=== PATIENT | female | born 1990 | race Caucasian/White ===

== ENCOUNTER 2018-10-19 11:22 | Outpatient (REF) | payer BC, SELFPAY ==
[2018-10-19 18:54] LABS: ALT 25 U/L (12-78); AST 17 U/L (15-37); Alkaline Phosphatase 69 U/L (46-116); Anion Gap 12.6 mmol/L (3-11); BUN 10 mg/dL (7-18); Bilirubin, Total 0.6 mg/dL (0.2-1.0); CO2 23.4 mmol/L (21.0-32.0); CREATININE 0.75 mg/dL (0.55-1.02); Calcium 8.9 mg/dL (8.5-10.1); Chloride 103 mmol/L (98-107); Glucose 92 mg/dL (70-100); Potassium 4.1 mmol/L (3.5-5.1); Sodium 139 mmol/L (136-145); Total Protein 7.6 g/dL (6.4-8.2)
== END 2018-10-19 11:42 ==
LOC: NCHCN 11:22
PROVIDERS: PCP Nurse Practitioner Family; Visit Provider Nurse Practitioner Family
DX: Z00.00 Encounter for general adult medical examination without abnormal findings (principal); Z13.228 Encounter for screening for other metabolic disorders
CPT/HCPCS: 80053

== ENCOUNTER 2018-12-15 16:51 | Outpatient (REF) | payer BC, SELFPAY ==
[2018-12-15 19:19] LABS: Ferritin 51 ng/mL (8-388)
[2018-12-15 19:30] LABS: HCT 40.9 % (36.0-46.0); HGB 13.6 g/dL (12.0-15.5); Mean Corp. HGB Concentration 33.3 g/dL (32.0-36.0); Mean Corpuscular Hemoglobin 29.1 pg (27.0-33.0); Mean Corpuscular Volume 87.6 fL (80-95); Mean Platelet Volume 10.7 fL (8.0-11.0); Platelet Count 341 x1000/uL (130-400); RBC 4.67 m/cumm (4.00-5.20); RBC Distribution Width 12.9 % (11.7-14.6); White Blood Cell Count 10.08 k/cumm (4.4-10.8)
[2018-12-15 20:04] LABS: Iron 52 ug/dL (50-175); Total Iron Binding Capacity 301 ug/dL (250-450); Transferrin Sat 17 % (15-50)
== END 2018-12-15 17:11 ==
LOC: NCHCN 16:51
PROVIDERS: PCP Nurse Practitioner Family; Visit Provider Nurse Practitioner Family
DX: N93.9 Abnormal uterine and vaginal bleeding, unspecified (principal); R51 Headache; Z33.1 Pregnant state, incidental
CPT/HCPCS: 85027; 82728; 83540; 83550

== ENCOUNTER 2019-01-11 01:49 | Outpatient (CLI) | payer BC, SELFPAY ==
--- NOTE | 2019-01-11 12:28 | DI.US_ITS ---
EXAM: US PELVIS TRANSVAGINAL CLINICAL HISTORY: AUB following elective termination 6 weeks prior, N93.9 TECHNIQUE: Ultrasound performed using standard protocol. COMPARISON: No exams were available for comparison FINDINGS: The uterus measures 6.8 cm long by 4.4 cm AP x 4.7 cm transverse. The endometrial stripe is at the u pper limits of normal at 1.4 cm. No uterine mass is identified. The right ovary measures 2.4 x 1.5 x 1.5 cm. There are small follicular cysts present. There is nor mal blood flow to the right ovary. No evidence of torsion is present. The left ovary measures 2.8 x 1.9 x 2.2 cm. There are small follicular cysts present. There is norm al blood flow to the left ovary. No evidence of torsion is present. There is a small amount of free fluid in the pelvis. No hydronephrosis is present. IMPRESSION: Endometrial stripe measures 1.4 cm which is at the upper limits of normal. A follow-up pelvic ultras ound should be considered in 6-8 weeks for re-evaluation of the endometrial stripe.
== END 2019-01-11 02:09 ==
PROVIDERS: PCP Nurse Practitioner Family; Visit Provider Obstetrics & Gynecology
DX: N93.9 Abnormal uterine and vaginal bleeding, unspecified (principal); Z98.890 Other specified postprocedural states
CPT/HCPCS: 76830; 76856

== ENCOUNTER 2019-01-12 10:10 | Outpatient (CLI) | payer BC, SELFPAY ==
[2019-01-12 10:52] LABS: HCT 42.7 % (36.0-46.0); HGB 14.2 g/dL (12.0-15.5); Mean Corp. HGB Concentration 33.3 g/dL (32.0-36.0); Mean Corpuscular Hemoglobin 29.3 pg (27.0-33.0); Mean Platelet Volume 10.1 fL (8.0-11.0); Platelet Count 327 x1000/uL (130-400); RBC 4.85 m/cumm (4.00-5.20); RBC Distribution Width 12.9 % (11.7-14.6); White Blood Cell Count 7.58 k/cumm (4.4-10.8)
== END 2019-01-12 10:30 ==
PROVIDERS: PCP Nurse Practitioner Family; Visit Provider Obstetrics & Gynecology
DX: N93.9 Abnormal uterine and vaginal bleeding, unspecified (principal); Z30.430 Encounter for insertion of intrauterine contraceptive device; Z01.818 Encounter for other preprocedural examination; Z01.812 Encounter for preprocedural laboratory examination
CPT/HCPCS: 36415; 85027; 86850; 86900; 86901

== ENCOUNTER 2019-01-13 09:20 | Day surgery (SDC) | payer BC, SELFPAY ==
[2019-01-13 09:36] VITALS: BP 130/98; PULSE 88; RESP 16; TEMP 36.5; O2SAT 96
[2019-01-13] MEDS: Lactated Ringers 1,000 ML 125 ML IV (11:10)
[2019-01-13] MEDS: ceFAZolin 2 GM/50 ML BAG IVPB (12:34)
[2019-01-13] MEDS: Lidocaine 1% Multi-Dose 50 ML VIAL (12:35)
--- NOTE | 2019-01-13 12:55 | POCSPONT_PTH ---
PATIENT: Allyson Santos LOC: [facility] U#:[id number] AGE/SX: 28/F ROOM: RE01/13/[address]: Finesse Powell MD : 1990 BED: DIS: 01/13/2019 SPEC #: [id number] RECD: 01/13/19 18:12 STATUS: RAHEL REQ #: [id number] PAULY: 01/13/19 12:[address]: Finesse Powell DEPT: Surgical Specimen RECD BY: Lyly Leonardo ENTERED: 01/13/19 18:12 SP TYPE: POCSPONT MELONY DR: Devin Mims Tissues: 1 - ,SPONTANEOUS Procedures: GROSS AND MICRO LEVEL 4 Comments: [id number]
--- NOTE | 2019-01-13 12:55 | PAPFT_PTH ---
PATIENT: Allyson Santos LOC: [facility] U#:[id number] AGE/SX: 28/F ROOM: RE01/13/[address]: Finesse Powell MD : 1990 BED: DIS: 01/13/2019 SPEC #: [id number] RECD: 01/13/19 18:14 STATUS: RAHEL REQ #: [id number] PAULY: 01/13/19 12:[address]: Finesse Powell DEPT: [facility] Cytology RECD BY: Lyly Leonardo ENTERED: 01/13/19 18:15 SP TYPE: PAPFT OTHR DR: Devin Mims Tissues: 1 - CX/ENDOCX FOR PAP SMEARS Procedures: PAP THIN PREP/UVM Screening Comments: [id number]
[2019-01-13 13:35] VITALS: BP 124/58; PULSE 73; RESP 16; TEMP 36.3; O2SAT 99
--- NOTE | 2019-01-14 17:45 | W.PM.OP ---
Date of service: 01/13/19 Time of Service: 10:30 Operative Note Operative Note DATE OF PROCEDURE: 01/14/19 PRE-OP DIAGNOSIS: 1. Possible retained POC following EAB. 2. Contraceptive management. POST-OP DIAGNOSIS: same PROCEDURE: 1. Suction D&C 2. Mirena IUD insertion SURGEON: Finesse Powell ANESTHESIA: MAC ESTIMATED BLOOD LOSS: 20 PATHOLOGY: other (Possible retained products of conception) COMPLICATIONS: None Patient was transported to: PACU Patient's condition: stable Findings: 1. Moderate amount of tissue was extracted from the endometrial cavity Procedure Description: The patient was taken to the operating room and after an adequate level of sedation was achieved the patient was placed in lithotomy position. The patient was prepped and draped in the usual sterile manner. Prior to the vaginal prep a Pap smear was collected at the patient's request. A weighted speculum was placed in the vagina with good visualization of the cervix. A paracervical block with 10 cc of 1% plain lidocaine solution was instilled. The cervix was gently dilated with Villanueva dilators. A 7 [place]guillan curved suction curette was advanced to the cervix. The suction apparatus was activated and a moderate amount of tissue was returned. A sharp curettage was performed and no additional products of conception were retrieved. A second Paps with the suction curette was made also with no return of tissue. The Mirena IUD was inserted without difficulty and deployed. Strings were cut to the appropriate length. The procedure was concluded at this point. Almost instrumentation was removed. The patient was transferred to PACU stable condition.
== END 2019-01-13 14:36 | disposition home or self-care (01) ==
PROVIDERS: PCP Nurse Practitioner Family; Visit Provider Obstetrics & Gynecology
PROC: (CPT 59841; principal; 2019-01-13 11:00)
PROC: (CPT 59812; 2019-01-13 11:00)
DX: O07.4 Failed attempted termination of pregnancy without complication (principal); Z30.430 Encounter for insertion of intrauterine contraceptive device
CPT/HCPCS: 59812; 58300; 88142; 88305; J7298; J0690; J1100; J1885; J2405

== ENCOUNTER 2019-01-28 14:31 | Outpatient (CLI) | payer BC, SELFPAY ==
[2019-01-28 15:21] LABS: Abs Immature Grans 0.01 k/cumm (0.0-0.09); Absolute Basophil Count 0.04 k/cumm (0.0-0.2); Absolute Eosinophil Count 0.22 k/cumm (0.0-0.7); Absolute Lymphocyte Count 2.69 k/cumm (1.2-3.4); Absolute Monocyte Count 0.59 k/cumm (0.11-0.7); Absolute Neutrophil Count 5.22 k/cumm (1.2-6.7); Basophils % 0.5; Eosinophils % 2.5; HCT 42.6 % (36.0-46.0); Immature Grans % 0.1; Lymphocytes % 30.7; Mean Corp. HGB Concentration 32.9 g/dL (32.0-36.0); Mean Corpuscular Hemoglobin 28.7 pg (27.0-33.0); Mean Corpuscular Volume 87.5 fL (80-95); Mean Platelet Volume 10.1 fL (8.0-11.0); Monocytes % 6.7; Neutrophils % 59.5; Platelet Count 387 x1000/uL (130-400); RBC 4.87 m/cumm (4.00-5.20); RBC Distribution Width 12.6 % (11.7-14.6); White Blood Cell Count 8.77 k/cumm (4.4-10.8)
[2019-01-28 15:58] LABS: C-Reactive Protein 0.72 mg/dL (0.0-0.3)
[2019-01-28 16:11] LABS: ESR 16 mm/hr (0-20)
== END 2019-01-28 14:51 ==
PROVIDERS: PCP Nurse Practitioner Family; Visit Provider Obstetrics & Gynecology
DX: R10.9 Unspecified abdominal pain (principal); R10.2 Pelvic and perineal pain
CPT/HCPCS: 36415; 85652; 85025; 86140

== ENCOUNTER 2019-01-28 16:33 | Outpatient (REF) | payer BC, SELFPAY | END 2019-01-28 16:53 | LOC: LBN 16:33 | PROVIDERS: PCP Nurse Practitioner Family; Visit Provider Obstetrics & Gynecology | DX: G89.18 Other acute postprocedural pain (principal); R10.2 Pelvic and perineal pain | CPT/HCPCS: 87086 ==

== ENCOUNTER 2019-09-21 01:06 | Outpatient (CLI) | payer BC, SELFPAY ==
--- NOTE | 2019-09-21 13:30 | DI.US_ITS ---
EXAM: US BREAST RT LIMITED CLINICAL HISTORY: Right sided mastalgia. FHx of breast ca, N64.4, Z80.3 TECHNIQUE: Ultrasound right breast performed using standard protocol. COMPARISON: No exams were available for comparison FINDINGS: No solid or cystic masses, hypoechoic foci, areas of abnormal shadowing, or areas of skin thickening. IMPRESSION: No sonographically suspicious finding. BI-RADS Category 1 - Negative DATA REPOSITORY:
== END 2019-09-21 01:26 ==
PROVIDERS: PCP Nurse Practitioner Family; Visit Provider Obstetrics & Gynecology
DX: N64.4 Mastodynia (principal); Z80.3 Family history of malignant neoplasm of breast
CPT/HCPCS: 76642

== ENCOUNTER 2020-01-04 19:19 | Outpatient (REF) | payer BC, SELFPAY ==
[2020-01-04 13:02] LABS: TSH (W/Ref FT4) 1.49 uIU/mL (0.36-3.74)
== END 2020-01-04 19:39 ==
LOC: NCHCN 19:19
PROVIDERS: PCP Nurse Practitioner Family; Visit Provider Nurse Practitioner Family
DX: R53.83 Other fatigue (principal)
CPT/HCPCS: 84443

== ENCOUNTER 2020-09-26 12:39 | Outpatient (REF) | payer BC, SELFPAY ==
[2020-09-26 19:50] LABS: Abs Immature Grans 0.02 10^3/uL (0.0-0.06); Absolute Basophil Count 0.05 10^3/uL (0.0-0.2); Absolute Eosinophil Count 0.12 10^3/uL (0.0-0.7); Absolute Lymphocyte Count 2.37 10^3/uL (1.2-3.4); Absolute Monocyte Count 0.66 10^3/uL (0.1-0.8); Absolute Neutrophil Count 5.82 10^3/uL (1.2-6.7); Basophils % 0.6; Eosinophils % 1.3; HGB 14.3 g/dL (11.2-15.7); Immature Grans % 0.2; Lymphocytes % 26.2; MCH 29.7 pg (27.0-33.0); MCHC 33.3 % (32.0-36.0); MCV 89.4 fL (80-95); Monocytes % 7.3; Neutrophils % 64.4; Nucleated RBC 0 %; Platelet Count 301 10^3/uL (130-400); RBC 4.81 10^6/uL (3.93-5.22); RDW 12.7 % (11.7-14.6); RDW-SD 41.7 fL; WBC 9.04 10^3/uL (4.4-10.8)
[2020-09-26 20:12] LABS: Ferritin 51 ng/mL (8-252); TSH (W/Ref FT4) 2.24 uIU/mL (0.36-3.74)
[2020-09-27 20:35] LABS: Iron 133 ug/dL (50-170); Total Iron Binding Capacity 336 ug/dL (250-450); Transferrin Sat 40 % (15-50)
[2020-09-28 03:47] LABS: Vitamin D 25 Total 21.5 ng/mL (30-100)
== END 2020-09-26 12:40 | disposition home or self-care (01) ==
LOC: NCHCN 12:39
PROVIDERS: PCP Nurse Practitioner Family; Visit Provider Nurse Practitioner Family
DX: R53.83 Other fatigue (principal); L65.9 Nonscarring hair loss, unspecified
CPT/HCPCS: 82306; 82728; 83540; 83550; 84443; 85025

== ENCOUNTER 2021-06-18 18:38 | Outpatient (REF) | payer BC, SELFPAY ==
[2021-06-19 15:12] LABS: Chlamydia Result Negative (Negative); GC Result Negative (Negative)
== END 2021-06-18 18:39 | disposition home or self-care (01) ==
LOC: LBN 18:38
PROVIDERS: Nurse Practitioner Women's Health; PCP Nurse Practitioner Family; Visit Provider Internal Medicine Infectious Disease
DX: Z11.3 Encounter for screening for infections with a predominantly sexual mode of transmission (principal)
CPT/HCPCS: 87491; 87591

== ENCOUNTER 2021-07-18 01:32 | Outpatient (CLI) | payer BC, SELFPAY ==
[2021-07-18 07:41] LABS: HGB 14.4 g/dL (11.2-15.7); MCH 29.4 pg (27.0-33.0); MCHC 32.7 % (32.0-36.0); MCV 90 fL (80-95); MPV 9.9 fL (8.0-11.0); Platelet Count 317 10^3/uL (130-400); RDW 12.5 % (11.7-14.6); RDW-SD 41.1 fL; WBC 8.47 10^3/uL (4.4-10.8)
[2021-07-18 08:49] LABS: TSH (W/Ref FT4) 1.91 uIU/mL (0.36-3.74)
[2021-07-19 01:53] LABS: Vitamin D 25 Total 48.7 ng/mL (30-100)
== END 2021-07-18 01:33 | disposition home or self-care (01) ==
LOC: LBO 01:32
PROVIDERS: PCP Nurse Practitioner Family; Visit Provider Nurse Practitioner Women's Health
DX: L65.9 Nonscarring hair loss, unspecified (principal)
CPT/HCPCS: 36415; 82306; 85027; 84443

== ENCOUNTER 2022-10-29 13:09 | Outpatient (REF) | payer BC, SELFPAY ==
[2022-10-29 15:59] LABS: Abs Immature Grans 0.03 10^3/uL (0.0-0.06); Absolute Basophil Count 0.04 10^3/uL (0.0-0.2); Absolute Eosinophil Count 0.09 10^3/uL (0.0-0.7); Absolute Lymphocyte Count 2.33 10^3/uL (1.2-3.4); Absolute Monocyte Count 0.58 10^3/uL (0.1-0.8); Absolute Neutrophil Count 5.36 10^3/uL (1.2-6.7); Basophils % 0.5; Eosinophils % 1.1; HCT 43.4 % (36.0-46.0); HGB 14.6 g/dL (11.2-15.7); Immature Grans % 0.4; Lymphocytes % 27.6; MCH 29.7 pg (27.0-33.0); MCHC 33.6 % (32.0-36.0); MCV 88 fL (80-95); MPV 10.3 fL (8.0-11.0); Monocytes % 6.9; Neutrophils % 63.5; Platelet Count 364 10^3/uL (130-400); RBC 4.92 10^6/uL (3.93-5.22); RDW 12.8 % (11.7-14.6); RDW-SD 41.4 fL; WBC 8.43 10^3/uL (4.4-10.8)
[2022-10-29 16:52] LABS: FREE T4 1.08 ng/dL (0.76-1.46); TSH 2.15 uIU/mL (0.36-3.74)
[2022-10-29 23:12] LABS: Parathyroid Hormone,Intact 56 pg/mL (19-88)
== END 2022-10-29 13:10 | disposition home or self-care (01) ==
LOC: NCHCN 13:09
PROVIDERS: PCP Nurse Practitioner Family; Visit Provider Nurse Practitioner Family
DX: E04.9 Nontoxic goiter, unspecified (principal); M54.2 Cervicalgia
CPT/HCPCS: 82310; 83970; 84439; 84443; 85025

== ENCOUNTER 2022-11-12 17:12 | Outpatient (REF) | payer BC, SELFPAY ==
[2022-11-12 16:22] LABS: Abs Immature Grans 0.03 10^3/uL (0.0-0.06); Absolute Basophil Count 0.05 10^3/uL (0.0-0.2); Absolute Eosinophil Count 0.18 10^3/uL (0.0-0.7); Absolute Lymphocyte Count 2.77 10^3/uL (1.2-3.4); Absolute Monocyte Count 0.52 10^3/uL (0.1-0.8); Absolute Neutrophil Count 5.72 10^3/uL (1.2-6.7); Basophils % 0.5; Eosinophils % 1.9; HCT 42.3 % (36.0-46.0); HGB 14.4 g/dL (11.2-15.7); Immature Grans % 0.3; Lymphocytes % 29.9; MCH 29.4 pg (27.0-33.0); MCV 87 fL (80-95); MPV 9.9 fL (8.0-11.0); Monocytes % 5.6; Neutrophils % 61.8; Platelet Count 338 10^3/uL (130-400); RBC 4.89 10^6/uL (3.93-5.22); RDW 12.4 % (11.7-14.6); RDW-SD 39.3 fL; WBC 9.27 10^3/uL (4.4-10.8)
[2022-11-12 16:58] LABS: TSH 1.75 uIU/mL (0.36-3.74)
[2022-11-12 22:19] LABS: T3, Total 141 ng/dL (97-169)
== END 2022-11-12 17:13 | disposition home or self-care (01) ==
LOC: NCHCN 17:12
PROVIDERS: PCP Nurse Practitioner Family; Visit Provider Nurse Practitioner Family
DX: E04.9 Nontoxic goiter, unspecified (principal); R53.83 Other fatigue; L65.9 Nonscarring hair loss, unspecified; R59.1 Generalized enlarged lymph nodes; M54.2 Cervicalgia
CPT/HCPCS: 84439; 84443; 84480; 85025

== ENCOUNTER → 2023-02-17 02:45 | Outpatient (CLI) | payer BC, SELFPAY ==
--- NOTE | 2023-02-17 | DI.US_ITS ---
Exam(s) US BREAST LT COMPLETE US BREAST RT COMPLETE MG MAMMO DIAGNOSTIC BI EXAM: MG MAMMO DIAGNOSTIC BI AND BILATERAL COMPLETE BREAST ULTRASOUND CLINICAL HISTORY: CHANGE IN NIPPLE N64.59. TECHNIQUE: Both CC and MLO views of both breasts were performed using 3D tomosynthesis and I CAD. Complete bilateral breast ultrasound was performed including all 4 quadrants of both breasts as well as both axillary regions. COMPARISON: None. This is a baseline diagnostic mammogram on this 32-year-old patient who felt a re cent change in her right breast nipple. Denies feeling a mass nor nipple discharge. Her mother was diagnosed with breast cancer at approximately age 40. FINDINGS: DIAGNOSTIC BILATERAL MAMMOGRAM: There are no spiculated masses nor malignant-appearing microcalcification groups in either breast. S mall benign-appearing nodules in the upper-outer quadrant of the left breast have appearance of benig n intramammary lymph nodes. There is no significant architectural distortion or skin thickening-traction. BILATERAL COMPLETE BREAST ULTRASOUND: There is no evidence of solid or significant cystic lesions in all 4 quadrants of both breasts. No s ignificant findings in the retroareolar regions. Scanning of both axillary regions is negative for adenopathy. IMPRESSION: 1. No mammographic evidence of malignancy. 2. Negative bilateral complete breast ultrasound Appropriate follow-up is repeat imaging in a few months time if symptoms persist.. The patient was informed of the findings and follow-up recommendations prior to leaving the [facility] today. Category: Density: Breast density Category C or D implies that the patient has dense breast tissue. Dense breast tissue can make it harder to find cancer on a mammogram. Dense breast tissue is also associated with an incr eased risk of breast cancer. This information about the result of the mammogram report was provided to the patient to raise their awareness. Use this report when you speak with the patient about their risks for breast cancer, which includes their family history. At that time, you may recommend additional screening tests (Ultrasoun d or MRI) as these tests may add significant information. A negative radiographic report should not delay biopsy if a dominant or clinically suspicious mass is present. Up to ten percent of cancers are not identified on mammography. A negative report may reinforce clinical impression. Adenosis and dense breasts may obscure an underlying neoplasm. False positive reports average 6 to 10%. Patient will receive a letter notifying them of these results.
== END ==
PROVIDERS: PCP Nurse Practitioner Family; Visit Provider Nurse Practitioner Family
DX: Z12.31 Encounter for screening mammogram for malignant neoplasm of breast (principal); N64.59 Other signs and symptoms in breast
CPT/HCPCS: 76642; 77062; 77066; G0279

== ENCOUNTER 2023-03-20 12:56 | Outpatient (REF) | payer BC, SELFPAY ==
[2023-03-20 19:08] LABS: Abs Immature Grans 0.02 10^3/uL (0.0-0.06); Absolute Basophil Count 0.05 10^3/uL (0.0-0.2); Absolute Eosinophil Count 0.12 10^3/uL (0.0-0.7); Absolute Lymphocyte Count 2.32 10^3/uL (1.2-3.4); Absolute Neutrophil Count 5.36 10^3/uL (1.2-6.7); Basophils % 0.6; Eosinophils % 1.4; HCT 43.6 % (36.0-46.0); HGB 14.6 g/dL (11.2-15.7); Immature Grans % 0.2; Lymphocytes % 27.4; MCH 29.5 pg (27.0-33.0); MCHC 33.5 % (32.0-36.0); MCV 88 fL (80-95); Monocytes % 7.1; Neutrophils % 63.3; Platelet Count 345 10^3/uL (130-400); RBC 4.95 10^6/uL (3.93-5.22); RDW 12.7 % (11.7-14.6); RDW-SD 40.9 fL; WBC 8.47 10^3/uL (4.4-10.8)
[2023-03-20 19:21] LABS: FREE T4 1.04 ng/dL (0.76-1.46); TSH 1.36 uIU/mL (0.36-3.74)
[2023-03-21 19:11] LABS: Thyroglobulin Antibody 491 U/mL (<=60); Thyroperoxidase Antibody 37 U/mL (<=60)
[2023-03-22 20:28] LABS: HSV 1 DNA Result Positive (Negative); HSV 2 DNA Result Negative (Negative)
[2023-03-24 16:05] LABS: ANA Interpretation Negative (Negative)
== END 2023-03-20 12:57 | disposition home or self-care (01) ==
LOC: NCHCN 12:56
PROVIDERS: PCP Nurse Practitioner Family; Visit Provider Nurse Practitioner Family
DX: R53.83 Other fatigue (principal); R53.81 Other malaise; K13.0 Diseases of lips
CPT/HCPCS: 87529; 84439; 84443; 85025; 86038; 86376; 86800

== ENCOUNTER 2023-04-17 11:57 | Outpatient (REF) | payer BC, SELFPAY ==
--- NOTE | 2023-04-17 11:45 | PAPFT_PTH ---
PATIENT: Allyson Santos LOC: [facility] U#:[id number] AGE/SX: 32/F ROOM: RE04/17/[address]: Cathy Townsend DO : 1990 BED: DIS: 04/17/2023 SPEC #: [id number] RECD: 04/17/23 18:08 STATUS: RAHEL REQ #: [id number] PAULY: 04/17/23 11:[address]: Cathy Townsend DEPT: [facility] Cytology RECD BY: Lyly Leonardo ENTERED: 04/17/23 18:08 SP TYPE: PAPFT OTHR DR: NORBERT MAN Tissues: 1 - CX/ENDOCX FOR PAP SMEARS Procedures: PAP THIN PREP/UVM Screening HPV DNA PROBE Comments: [id number]
== END 2023-04-17 11:58 | disposition home or self-care (01) ==
LOC: LBN 11:57
PROVIDERS: PCP Nurse Practitioner Family; Visit Provider Obstetrics & Gynecology
DX: Z12.4 Encounter for screening for malignant neoplasm of cervix (principal)
CPT/HCPCS: 88142; 87624

== ENCOUNTER → 2023-05-20 01:01 | Outpatient (CLI) | payer BC, SELFPAY ==
--- NOTE | 2023-05-20 13:33 | DI.MAMMO_ITS ---
Exam(s) MAMMO DIAGNOSTIC BI EXAM: MAMMO DIAGNOSTIC BI CLINICAL HISTORY: 3 MONTH F/U, R92.8, BILAT FINDINGS. TECHNIQUE: Craniocaudal and mediolateral oblique Full Field Digital Mammography views of the bilater al breast with Computer Aided Diagnosis followed by Tomosynthesis. COMPARISON: Comparison is made with prior examinations. FINDINGS: Mammography/Tomosynthesis: Masses/Architectural Distortion: No new nodules. No areas of architectural distortion. Microcalcifictions: No suspicious pleomorphic-type are seen. Skin Thickening/Nipple Retraction: None. IMPRESSION: 1. No evidence of malignancy is noted. 2. Unless there is more urgent need, follow-up screening mammography is recommended, as per [employer] guidelines. 3. The findings were discussed with the patient on the date of the examination. BI-RADS Category 1 - Negative Breast Density - Category B - Scattered areas of fibroglandular density Breast density Category C or D implies that the patient has dense breast tissue. Dense breast tissue can make it harder to find cancer on a mammogram. Dense breast tissue is also associated with an incr eased risk of breast cancer. This information about the result of the mammogram report was provided to the patient to raise their awareness. Use this report when you speak with the patient about their risks for breast cancer, which includes their family history. At that time, you may recommend additional screening tests (Ultrasoun d or MRI) as these tests may add significant information. A negative radiographic report should not delay biopsy if a dominant or clinically suspicious mass is present. Up to ten percent of cancers are not identified on mammography. A negative report may reinforce clinical impression. Adenosis and dense breasts may obscure an underlying neoplasm. False positive reports average 6 to 10%. Patient will receive a letter notifying them of these results.
== END ==
PROVIDERS: PCP Nurse Practitioner Family; Visit Provider Nurse Practitioner Family
DX: Z12.31 Encounter for screening mammogram for malignant neoplasm of breast (principal); R92.8 Other abnormal and inconclusive findings on diagnostic imaging of breast
CPT/HCPCS: 77062; 77066; G0279

== ENCOUNTER → 2023-07-21 01:41 | Outpatient (CLI) | payer BC, SELFPAY ==
--- NOTE | 2023-07-21 | DI.MRI_ITS ---
Exam(s) MR BRAIN WO EXAM: MR BRAIN WO CLINICAL HISTORY: R27.8 Other lack of coordination, balancing issues,clumsiness,fatigue, TECHNIQUE: Multiplanar multisequence MRI of the brain was performed. FINDINGS: VENTRICLES AND EXTRA AXIAL SPACES: Normal in size and morphology for the patient's age. MIDLINE SHIFT: None. CEREBRAL PARENCHYMA: No focus of restricted diffusion to suggest acute infarct. No space-occupying le neil identified. Stable tiny high signal focus in the frontal lobe left periventricular white matter . HEMORRHAGE: None. BRAINSTEM/CEREBELLUM: Normal. VISUALIZED PARANASAL SINUSES/MASTOIDS:Clear. Vasculature: Normal flow void. PITUITARY GLAND: Unremarkable. ORBITS: Unremarkable. IMPRESSION: No acute abnormality. DATA REPOSITORY:
== END ==
PROVIDERS: PCP Nurse Practitioner Family; Visit Provider Nurse Practitioner Family
DX: R27.8 Other lack of coordination (principal)
CPT/HCPCS: 70551

== ENCOUNTER 2023-10-15 15:03 | Outpatient (REF) | payer BC, SELFPAY ==
--- OUTSIDE RECORDS SUMMARY | 2023-10-15 15:24 | XMS_ITS | Encounter Summary ---
Author Organization [facility] Address [facility] [place] [address] Care Team Providers Care Armhole Baster Hand Name Role Phone Triston Goldstein MD Primary Care Provider [phone] Reason for Visit * Reason Comments Medication Refill Encounter Details Date Type Department Care Team (Late st Contact Info) Description 05/05/2014 Refill Pediatric & Adolescent Medicine at [address] [phone] Rut Valdovinos APRN [facility] [place] [address] Social History Tobacco Use Types Packs/Day Years Used Date Smoking Tobacco: Never Alcohol Use Standard Drinks/Week Comments No 0 (1 standard drink = 0.6 oz pur e alcohol) Sex and Gender Information Value Date Recorded Sex Assigned at Not on file Gender Identity Not on file Sexual Orientation Not on file documented as of this encounter Miscellaneous Notes * Telephone Encounter - Katelyn Batista LPN - 05/05/2014 9:12 AM EST Last Rx 02-22-13 HPE 03-25-13, no future appointments pending. documented in this encounter Plan of Treatment Not on file documented as of this encounter Visit Diagnoses Not on filedocumented in this encounter Care Teams Armhole Baster Hand Relationship Specialty Start Date End Date Triston Goldstein MD [address] [place] [id number] PCP - General 03/22/13 06/23/16 documented as of this encounter
--- OUTSIDE RECORDS SUMMARY | 2023-10-15 15:24 | XMS_ITS | Encounter Summary ---
Author Organization [facility] Address [facility] [place] [address] Care Team Providers Care Deli Cook Name Role Phone Devin Mims DNP Primary Care Provider [phone] Reason for Visit * Reason Comments Genetic Evaluation * Consultation (Routine) - Closed Specialty Diagnoses / Procedures Referred By Leslye t Referred To Contact Hematology and Oncology Diagnoses Family history of malignant neoplasm of breast Mother diagnosed breast cancer in 40's Finesse Powell MD [address] [place] [phone] [facility] Hem Onc Office [address] [place] [phone] Referral ID Status Reason Start Date Expiration Date Visits Re quested Visits Authorized [id number] Closed 09/13/2019 09/12/2020 1 1 Encounter Details Date Type Department Care Team (Late st Contact Info) Description 12/31/2019 1:00 PM EDT Office Visit [place]ology [place] [phone] Shorty Lim V, [facility] Hematology/[place] [address] Family history of breast cancer Social History Tobacco Use Types Packs/Day Years Used Date Smoking Tobacco: Never Alcohol Use Standard Drinks/Week Comments No 0 (1 standard drink = 0.6 oz pur e alcohol) Sex and Gender Information Value Date Recorded Sex Assigned at Not on file Gender Identity Not on file Sexual Orientation Not on file documented as of this encounter Progress Notes * Shorty Lim LGC - 12/31/2019 1:00 PM EDT Allyson Santos was seen by ANALILIA Arriola in consultation at the request of Finesse zuñiga regarding possible heritable predisposition to cancer. I spent 25 minutes of this face to face encounter with the patient gathering medical and family history and discussing the likelihood of a genetic predisposition to cancer and the option of genetic testing. Reason for referral/Chief complaint Family history of breast cancer and personal history of recent breast pain. Medical history Cancer hx and treatment: No personal history of cancer reported. Allyson states that she recently had left breast pain and discharge. She had a breast ultrasound this summer which was normal and was recommended to have a mammogram in a year. She notes that she still has breast pain, as well as ongoing headache for weeks at a time which could be due to her stressful job. Current cancer screening: Mammogram planned for 2020 due to current breast pain. Receiving Operator exam annually.No prior colonoscopy. No prior dermatology exam, although notes interest in seeing a high school principal in the near future. Family History of Cancer Problem Relation Age of Onset ??? Breast Cancer Mother 46 Maternal ethnic background is . Paternal ethnic background is . There is no known Ashkenazi Evangelical Ancestry. Genetic risk assessment We discussed that Allyson's mother would be the best candidate for genetic testing as she was personally affected with breast cancer. We discussed that negative genetic testing in an individual who isnot personally affected with cancer is considered an uninformative negative, as it would still beunclear whether or not the family history of cancer is due to a detectable mutation in a cancer risk gene. Allyson thinks her mother may have had genetic testing and will get in touch with her mom to try and obtain a copy of her mother's test report. Per NCCN guidelines, Allyson does not meet criteria for BRCA1/2 testing as her mother was diagnosed at age 46. However, given the guidelines cut-off is age 45, Allyson could still consider testing if her mother has not had genetic testing and is not interested in doing so. We briefly discussed that genetic testing would be very unlikely to provide a direct explanation for her breast pain or headaches and that she should bring these concerns to her PCP for evaluation. Allyson was provided with my contact information and should reach out if she obtains information on her mother's genetic testing. Her mother can also reach out to me directly to provide verbal permission for me to look in her records for her test result and to disclose them to her daughter. Allyson should notify us of any changes to her personal and family history moving forward. Screening Recommendations Based on personal and/or family history, we recommend: Breast cancer screening ?? Be aware of any breast changes and share concerns with primary care provider ?? Annual clinical breast exams ?? Annual mammograms/Biennial or annual tomosynthesis (3D mammogram) starting up to 10 years prior to the youngest breast cancer in the family Ovarian cancer screening ?? We do not recommend any special screening studies in addition to an annual GEOCHEMICAL LABORATORY TECHNICIAN exam at this time. Colon cancer screening ?? Baseline colorectal cancer screening starting at age 50 Skin cancer screening ?? Periodic skin exams documented in this encounter Plan of Treatment Not on file documented as of this encounter Visit Diagnoses Diagnosis Family history of breast cancer Family history of malignant neoplasm of breast documented in this encounter Care Teams Deli Cook Relationship Specialty Start Date End Date Devin Mims DNP PCP - General Family Medicine 09/13/19 05/04/23 documented as of this encounter
--- OUTSIDE RECORDS SUMMARY | 2023-10-15 15:24 | XMS_ITS | Encounter Summary ---
Author Organization [facility] Address [address] [place] [address] Care Team Providers Care Visitor Services Associate Name Role Phone Unknown, Provider Primary Care Provider Encounter Details Date Type Department Care Team (Late st Contact Info) Description 04/18/2023 Lab Requisition [facility] Pathology & Laboratory Medicine - [facility] [address] [place] [address] Cathy Townsend [address] [place] [address] [place] [phone] Encounter for other general examination Social History Tobacco Use Types Packs/Day Years Used Date Smoking Tobacco: Never Assessed Interpersonal Safety Answer Date Record ed Physically Hurt Never 10/18/2019 Verbally Threaten Not on file 10/18/2019 Sex and Gender Information Value Date Recorded Sex Assigned at Not on file Gender Identity Not on file Sexual Orientation Not on file documented as of this encounter Plan of Treatment Not on file documented as of this encounter Procedures Procedure Name Priority Date/Time Associated Diagnosis Comments PAP TEST Today 04/17/2023 11:45 EST Encounter for other general examination HPV DNA DETECTION WITH GENOTYPING, PCR Today 04/17/2023 11:45 EST Encounter for other general examination documented in this encounter Results * HUMAN PAPILLOMAVIRUS (HPV) DETECTION-HIGH RISK TYPES (04/17/2023 11:45 EST) HPV other High Risk types, PCR Negative Negative 04/30/2023 14:39 EST [facility] Comment:No E6 or E7 mRNA is detected from HPV types 16,18,31,33,35,39,45,51,52,56,58,59,66, and 68 by measurement and sensing technician mediated amplification. Pap Test CERVIX UTERI STRUCTURE / Unknown 04/17/2023 11:45 EST 04/29/2023 15:19 EST Cathy Townsend MICROBIOLOGY - GENER AL ORDERABLES Performing Organization Address City/[facility]/ZIP Co de Phone Number [facility] [address] [place] [address] * PAP TEST (04/17/2023 11:45 EST) Specimens A. Cervix and/or Endocervix , ThinPrep Imaging System with Manual Evaluation 04/30/2023 14:39 [facility] Specimen Adequacy Satisfactory for Evaluation - transformation zone component present 04/30/2023 14:39 [facility] General Categorization Negative for intraepithelial lesion or malignancy 04/30/2023 14:39 [facility] Attestation . 04/30/2023 14:39 [facility] at 1439 Clinical History SEE BELOW 04/30/19 14:39 [facility] HPV The result for the Human Papillomavirus (HPV) Detection-High Risk Types is Negative. No E6 or E7 mRNA is detected from HPV types 16,18,31,33,35,39 ,45,51,52,56,58,5 9,66, and 68 by measurement and sensing technician mediated amplification.Jennifer ting was performed on specimen [id number] and was resulted on 04/30/2023 1439 EST by [facility], LAB INSTRUMENT RESULTS IN 04/30/2023 14:39 [facility] Performing Lab [facility] 04/30/2023 14:39 [facility] Scanned Images 04/30/2023 14:39 [facility] Pap Test CERVIX UTERI STRUCTURE / Unknown 04/17/2023 11:45 EST 04/18/2023 13:09 EST Cathy Townsend PATHOLOGY ORDERABLES [facility] [address] [place] [id number] documented in this encounter Visit Diagnoses Diagnosis Encounter for other general examination documented in this encounter Care Teams Visitor Services Associate Relationship Specialty Start Date End Date Unknown, Provider, PCP - General 01/13/19 documented as of this encounter
--- OUTSIDE RECORDS SUMMARY | 2023-10-15 15:24 | XMS_ITS | Encounter Summary ---
Author Organization [facility] [place] [address] Care Team Providers Care Interventional Sale Consultant Name Role Phone Carol Colon APRN Primary Care Provider Reason for Visit * Consultation (Routine) - Closed Specialty Diagnoses / Procedures Referred By Leslye t Referred To Contact Endocrinology Diagnoses Abnormal results of thyroid function studies Carol Colon APRN [address] [place] [address] [place] [address] [facility] Endocrinology [address] [place] [address] Referral ID Status Reason Start Date Expiration Date Visits Re quested Visits Authorized [id number] Closed 04/09/2023 04/08/2024 1 1 Encounter Details Date Type Department Care Team (Late st Contact Info) Description 05/05/2023 8:30 AM EST Office [place] [address] Festus Vines [facility] [place] [address] Yuli's disease Social History Tobacco Use Types Packs/Day Years Used Date Smoking Tobacco: Never Smokeless Tobacco: Never Tobacco Cessation:Counseling Given: Not Answered Alcohol Use Standard Drinks/Week Comments No 0 (1 standard drink = 0.6 oz pur e alcohol) Sex and Gender Information Value Date Recorded Sex Assigned at Not on file Gender Identity Not on file Sexual Orientation Not on file documented as of this encounter Last Filed Vital Signs Vital Sign Reading Time Taken Comments Blood Pressure 116/87 05/05/2023 9:19 AM EST Pulse 95 05/05/2023 8:30 AM EST Temperature 36.3 ??C (97.4 ??F) 05/05/2023 8:30 AM ES T Respiratory Rate 16 05/05/2023 8:30 AM EST Oxygen Saturation 98% 05/05/2023 8:30 AM EST Inhaled Oxygen Concentration - - Weight 90 kg (198 lb 6.4 oz) 05/05/2023 8:30 AM EST Height 162.6 cm (5' 4) 05/05/2023 8:30 AM EST Body Mass Index 34.06 05/05/2023 8:30 AM EST documented in this encounter Progress Notes * Festus Vines, DO - 05/05/2023 8:30 AM EST Endocrinology Outpatient Visit Date of Visit: 05/05/2023 Patient Name: Allyson Santos : 1990 PCP: Devin Mims DNP Reason for referral: Allyson Santos is seen in Endocrine clinic at the request of Dr. Devin Mims DNP for positive TgAb. Patient's previous record and lab results reviewed. HISTORY OF PRESENT ILLNESS: Ms. Santos is a very pleasant 32 y.o. female with a PMH significant for Anxiety, GERD, and Obesity who presents for evaluation of positive TgAb. Patient states that there was initially concern for thyroid disease in her teens, she had initial Thyroid US in the past as well as TFTs which were normal. Her TFTs were periodically checked over thepast 10 years and have always been normal. These were checked due to a history of fatigue, weight, gain, neck tenderness, and neck fullness. More recently, her TgAb and TPOAb were checked. TgAb was positive (TPO was negative). TSH and FT4 normal at that time. Due to this, patient was referred to our practice. She also admits to some intermittent sleep issues, some joint swelling / joint pain. She denies difficulty swallowing or breathing. She has no symptoms of hyperandrogenism now or in the past (currently on nexplanon), her menses prior to starting nexplanon were mostly regular. Review of Systems: 12 Point ROS negative except for what has been documented above PAST MEDICAL HISTORY Patient Active Problem List Diagnosis Code Healthcare maintenance Z00.00 Headache- likely migraine R51 Shaking spells [id number] Allergy No Known Allergies Current Medication Current Outpatient Medications on File Prior to Visit Medication Sig Dispense Refill PREVIFEM 0.25-35 mg-mcg Tablet TAKE 1 TABLET DAILY 84 tablet 4 UNKNOWN TO PATIENT Control (Patient doesn't know brand name). No current facility-administered medications on file prior to visit. Social History Social History Socioeconomic History Marital status: Single Spouse name: Not on file Number of children: Not on file Years of education: Not on file Highest education level: Not on file Occupational History Not on file Tobacco Use Smoking status: Never Smokeless tobacco: Not on file Substance and Sexual Activity Alcohol use: No Drug use: No Sexual activity: Never Other Topics Concern Poor oral hygiene No Bike safety No Vehicle safety No Social History Narrative Merged History Encounter Allyson has her own apartment in [facility] she shares with a friend... Stepmom working: works at [employer]... Father working: [employer]... School: [employer] majoring in Elementary Ed... Smoke exposure: None... Other: parents . Mom is Porsche and lives in [place]. Allyson sees her sometimes. Social Determinants of Health Financial Resource Strain: Not on file Food Insecurity: Not on file Transportation Needs: Not on file Physical Activity: Not on file Intimate Partner Violence: Not on file Housing Stability: Not on file Family History Family History Problem Relation Age of Onset Migraines Mother and MGM Breast Cancer Mother 46 High Blood Pressure Maternal Grandmother and MGF Diabetes Maternal Grandfather Type 2 Heart Disease Maternal Grandfather maternal side of family Sudden Neg Hx PHYSICAL EXAM: Patient Vitals for the past 24 hrs: Temp Pulse Resp BP SpO2 05/05/23 0830 36.3 ??C (97.4 ??F) 95 16 (!) 135/99 98 % 05/05/23 0919 -- -- -- 116/87 -- GENERAL: WDWN F in NAD EYES: EOMI, no scleral icterus NECK: supple, palpable thyromegaly EXTREMITIES: No clubbing, no edema, no cyanosis, normal nails NEURO: normal strength, no tremor, normal reflexes Psych: Normal mood and affect Recent labs and Imaging TSH: 1.36 FT4: 1.04 TgAb: 491 (reference < 60) TPO Ab: 37 (ref < 60) Thyroid US: Not available, but reportedly normal per patient. She did give me disc today which I have given to imaging center to upload in the chart. Assessment and Plan 32 YO F w/ h/o anxiety, GERD, and obesity presents for evaluation of + TgAb. #Yuli's Thyroiditis Significance of positive TgAb simply means patient is at higher risk for developing hypothyroidism in the future due to yuli's thyroiditis. Her current TSH and FT4 level are at goal and therefore there is no need for other intervention to be performed at this time. Monitoring TSH q6-12 months and replacing thyroid hormone when TSH rises with PCP would be warranted. Given she is 32 YO F of reproductive age, also important to realize that if she becomes goal TSH will be < 2.5, and levothyroxine may need to be started in this case to reduce risk of miscarriage / labor. Patient states she has no plans to get at this time. As for her fatigue, given that her thyro id function tests are normal this is not the cause of her current presentation. I did consider cushings syndrome but without clinical features of hyperandrogenism, with weight gain being gradual, andpatient without clinical stigmata of cushings on exam, I do not think it is likely, and I do not think she has an endocrine cause for her fatigue. Patient did complain of some joint swelling / stiffness so it is possible she has an underlying rheumatologic condition (even with negative JOSTIN). Her PCP can give her a referral if they deem it appropriate. Plan - check TSH q 6-12 months with PCP, can start on low-dose levothyroxine when TSH rises above normal - if patient becomes , will need to treat with levothyroxine to maintain TSH < 2.5 - I will review thyroid US but reportedly was normal Follow up PRN We have reviewed our plan as outlined above with the patient, and patient verbalized understanding.All questions were answered and most of the time was spent on counseling about thyroid conditions, medication dosage and adjustment, how to take the medication properly, including pros and cons of starting medication, precautions and potential adverse effects of medication, the diagnostic and therapeutic decisions, and coordination of care. Thank you for allowing me to participate in the care of this very pleasant patient. D/W Dr. Porsche Vines PGY5, Endocrinology Fellow Pager: [phone] * Marni Arevalo MD - 05/05/2023 8:30 AM EST Patient seen and case discussed with Dr. Vines. I agree with the assessment and plan as documented and was involved in all medical decision making, with the following addendum: No need for Levothyroxine therapy at this time. If she should plan to conceive or become , goal TSH is 2.5 or less. Marni Arevalo MD Pest Control Applicatordirector commercial sales Endocrinology Section [facility] documented in this encounter Miscellaneous Notes * Addendum Note - Marni Arevalo MD - 05/05/2023 8:30 AM ESTAddended by: MARNI AREVALO on: 05/05/2023 02:13 PM Modules accepted: Level of Service documented in this encounter Plan of Treatment Not on file documented as of this encounter Visit Diagnoses Diagnosis Yuli's disease Chronic lymphocytic thyroiditis documented in this encounter Care Teams Interventional Sale Consultant Relationship Specialty Start Date End Date Carol Colon, [place] [address] PCP - General Family Medicine 05/05/23 documented as of this encounter
--- OUTSIDE RECORDS SUMMARY | 2023-10-15 15:24 | XMS_ITS | Encounter Summary ---
Author Organization [facility] Address [address] [place] [address] Care Team Providers Care Enrichment Specialist Name Role Phone Unknown, Provider Primary Care Provider Encounter Details Date Type Department Care Team (Late st Contact Info) Description 01/13/2019 Results Only [facility] [phone] Heidy Smith MD [address] [place] [id number] Social History Tobacco Use Types Packs/Day Years Used Date Smoking Tobacco: Never Assessed Sex and Gender Information Value Date Recorded Sex Assigned at Not on file Gender Identity Not on file Sexual Orientation Not on file documented as of this encounter Plan of Treatment Not on file documented as of this encounter Procedures Procedure Name Priority Date/Time Associated Diagnosis Comments SURGICAL PATHOLOGY Routine 01/13/2019 22 :44 EDT PAP TEST- RESULT ONLY Routine 01/13/2019 0:00 EDT documented in this encounter Results * SURGICAL PATHOLOGY (01/13/2019 22:44 EDT) Pathology Report: SURGICAL PATHOLOGY REPORT Reports generated via electronic interface contain original data; however they are lacking the format of the original report. Caution should be taken when reading/interpret ing unformatted reports. Name: ? ROMAMICHELE HUFF ? Accession #: ? [id number] ? : ? 1990 (Age: 28) ??F ? Collect Date: ? 01/13/2019 ? Location: ? [facility] ? Receive Date: ? 01/13/2019 ? Provider: HEIDY SMITH MD Copy to: VINCE HARRELL DNP ? Final Pathologic Diagnosis: PRODUCTS OF CONCEPTION: - Mid secretory endometrium. - No chorionic villi or decidua are identified in this specimen. Document reviewed and electronically signed by: DAVID BOSTON MD Report ??Date: 01/15/2019 17:44 By the signature above, the attending physician certifies that he/she has personally conducted a gross and/or microscopic examination of the described specimens and rendered or confirmed the above diagnosis. Specimen(s) Received: Products of conception Clinical History: Retained POC Gross Description: ? Received in formalin labelled with proper patient identification (initials F, L) and products of conception are multiple fragments of pink-alexis soft tissue (2.5 x 1.8 x 0.9 cm in aggregate). Chorionic villi are not grossly identified. No parts are present. The specimen is entirely submitted in 1-2. ELINA Mills (ASCP) 01/14/2019 9:12 AM End of Report [facility] 01/13/2019 22:4 4 EDT 01/13/2019 22:44 EDT Heidy Smith MD PATHOLOGY ORDERABLES [facility] [address] [place] [address] * PAP TEST- RESULT ONLY (01/13/2019 0:00 EDT) Pathology Report: CYTOPATHOLOGY REPORT Reports generated via electronic interface contain original data; however they are lacking the format of the original report. Caution should be taken when reading/interpreti ng unformatted reports. Name: ? MICHELE SANTOS ? Accession #: ? [id number] : ? 1990 (Age: 28) ??F ?Collect Date: ? 01/13/2019 Location: ? [facility] ? Receive Date: ? 01/14/2019 Provider: ?HEIDY SMITH MD Copy to: ?VINCE Lezama JULIO CESAR DNP ? Specimen/Source: ?Pap Test, Cervix, ThinPrep Imaging System with manual evaluation Last Menstrual Period: ? Menstrual/Pregnanc y Status: ? Post ? SPECIMEN ADEQUACY ? Satisfactory for Evaluation - transformation zone component present GENERAL CATEGORIZATION ? Negative for Intraepithelial Lesion or Malignancy ? Document reviewed and electronically signed by: ? CLIFTON Mayes(ASCP) ? Report Date: ??01/15/2019 13:37 End of Report [facility] 01/13/2019 01/14/2019 Heidy Smith MD PATHOLOGY ORDERABLES [facility] [address] [place] [address] documented in this encounter Visit Diagnoses Not on filedocumented in this encounter Care Teams Enrichment Specialist Relationship Specialty Start Date End Date Unknown, Provider, PCP - General 01/13/19 documented as of this encounter
--- OUTSIDE RECORDS SUMMARY | 2023-10-15 15:24 | XMS_ITS | Encounter Summary ---
Author Organization [facility] Address [address] [place] [address] Care Team Providers Care Quality Technician Name Role Phone Unknown, Provider Primary Care Provider Encounter Details Date Type Department Care Team (Late st Contact Info) Description 11/12/2022 Lab Requisition [facility] Pathology & Laboratory Medicine - [facility] [address] [place] [address] Outr Resulting Lab, Provider Social History Tobacco Use Types Packs/Day Years [...] Procedure Name Priority Date/Time Associated Diagnosis Comments T3, TOTAL Routine 11/12/2022 11:10 EDT documented in this encounter Results * T3, TOTAL (11/12/2022 11:10 EDT) T3, Total 141 97 - 169 ng/dL 11/12/2022 22:14 EDT [facility] Blood VENOUS BLOOD / Unknown 11/12/2022 11:10 EDT 11/12/2022 21:28 EDT Provider Outr Resulting Lab CHEMISTRY & BLOOD GAS ORDERABLES [facility] [address] [place] [address] documented in this encounter Visit Diagnoses Not on filedocumented in this encounter Care Teams Quality Technician Relationship Specialty Start Date End Date Unknown, Provider, PCP - General 01/13/19 documented as of this encounter
--- OUTSIDE RECORDS SUMMARY | 2023-10-15 15:24 | XMS_ITS | Clinical Summary ---
Author Organization [facility] Address [address] [place] [address] Care Team Providers Care Hvac Commercial Salesperson Name Role Phone Unknown, Provider Primary Care Provider [phone] Social History Tobacco Use Types Packs/Day Years Used Date Smoking Tobacco: Never Assessed Interpersonal Safety Answer Date Record ed Physically Hurt Never 10/18/2019 Verbally Threaten Not on file 10/18/2019 Sex and Gender Information Value Date Recorded Sex Assigned at Not on file Gender Identity Not on file Sexual Orientation Not on file Plan of Treatment Health Maintenance Due Date Last Done Comments Hepatitis C Screen 1990 Hepatitis B Vaccine (1 of 3 - 19+ 3-dose series) 07/28 COVID-19 Vaccine (2022-24 season) 2022 Care Teams Hvac Commercial Salesperson Relationship Specialty Start Date End Date Unknown, Provider, PCP - General 01/13/19
--- OUTSIDE RECORDS SUMMARY | 2023-10-15 15:24 | XMS_ITS | Encounter Summary ---
Author Organization [facility] [place] [address] Care Team Providers Care Senior Enlisted Advisor Name Role Phone Devin Mims DNP Primary Care Provider [phone] Encounter Details Date Type Department Care Team (Late st Contact Info) Description 09/21/2019 Ancillary Procedure [place] [address] Devin Mims DNP [address] [place] [address] Social History Tobacco Use Types Packs/Day Years [...] Procedure Name Priority Date/Time Associated Diagnosis Comments FILM LIBRARY-STORAGE ONLY US BREAST Routine 09/21/2019 12:00 AM EDT documented in this encounter Results * Film Library Storage Only US Breast (09/21/2019 12:00 AM EDT) Narrative [facility] - 01/06/2020 12:09 PM EDT This exam is auto-finalizing. It's purpose is for storage only. Devin Mims DNP IMG FILM LIBRARY OR DERABLES [place], [place] documented in this encounter Visit Diagnoses Not on filedocumented in this encounter Care Teams Senior Enlisted Advisor Relationship Specialty Start Date End Date Devin Mims DNP PCP - General Family Medicine 09/13/19 05/04/23 documented as of this encounter
--- OUTSIDE RECORDS SUMMARY | 2023-10-15 15:24 | XMS_ITS | Encounter Summary ---
Author Organization [facility] Address [facility] [place] [address] Care Team Providers Care Computer Game Tester Name Role Phone Triston Goldstein MD Primary Care Provider [phone] Reason for Visit * Reason Comments Medication Refill Encounter Details Date Type Department Care Team ([facility] st Contact Info) Description 07/05/2015 Refill Pediatric & Adolescent Medicine at [address] [id number] Rut Valdovinos APRN [facility] [place] [address] Social History Tobacco Use Types Packs/Day Years [...] on filedocumented in this encounter Care Teams Computer Game Tester Relationship Specialty Start Date End Date Triston Goldstein MD [address] [place] [address] PCP - General 03/22/13 06/23/16 documented as of this encounter
--- OUTSIDE RECORDS SUMMARY | 2023-10-15 15:24 | XMS_ITS | Encounter Summary ---
Author Organization [facility] [place] [address] Care Team Providers Care Manager Of Tires Sales Name Role Phone Carol Colon APRN Primary Care Provider [phone] Reason for Referral * Consultation (Routine) - Denied Specialty Diagnoses / Procedures Referred By Contac t Referred To Contact Rheumatology Diagnoses Other fatigue CHRONIC FATIGUE, JOINT STIFFNESS. PT SEEN BY [facility] ENDOCRINOLOGY - POSITIVE THYROGLOBULIN ANTIBODY. ALL OTHER THYROID TESTING NORMAL. ENDOCRINOLOGY - POSITIVE THYROGLOBULIN Carol Rivera APRN [address] [place] [address] [facility] [address] [place] [phone] Referral ID Status Reason Start Date Expiration Date V isits Requested Visits Authorized [id number] Denied Consult, Test & Treat PCP Updated and/or Approved 05/26/2023 05/25/2024 6 0 Encounter Details Date Type Department Care Team (Late st Contact Info) Description 05/26/2023 Transcribe Orders eDH Incoming Referrals [phone] Carol Colon APRN [address] [place] [address] Other fatigue Social History Tobacco Use Types Packs/Day Years Used Date Smoking Tobacco: Never Smokeless Tobacco: Never Alcohol Use Standard Drinks/Week Comments No 0 (1 standard drink = 0.6 oz pur e alcohol) Sex and Gender Information Value Date Recorded Sex Assigned at Not on file Gender Identity Not on file Sexual Orientation Not on file documented as of this encounter Plan of Treatment Scheduled Referrals Name Type Priority Associated Diagnoses Order Schedule Referral to Rheumatology Outpatient Referral Routine Other fatigue Ordered: 05/26/2023 documented as of this encounter Visit Diagnoses Diagnosis Other fatigue documented in this encounter Care Teams Manager Of Tires Sales Relationship Specialty Start Date End Date Carol Colon, JEWEL STRIPPER [address] [place] [address] PCP - General Family Medicine 05/05/23 documented as of this encounter
--- OUTSIDE RECORDS SUMMARY | 2023-10-15 15:24 | XMS_ITS | Clinical Summary ---
Author Organization [facility] Address [facility] [place] [address] Care Team Providers Care Speech Pathologist Assistant Name Role Phone Isaiah Carol Diaz APRN Primary Care Provider [phone] Allergies No known active allergies Medications Medication Sig Dispensed Refills Start Date End Date Status PREVIFEM 0.25-35 mg-mcg Tablet TAKE 1 TABLET DAILY 84 tablet 4 05/05/2014 Active Additional Information Patient not taking.Reported on 05/05/2023 UNKNOWN TO PATIENT Control (Patient doesn't know brand name). Active escitalopram oxalate (Lexapro) 5 mg tablet Take 5 mg by mouth every morning. 04/01/2023 Active hydrOXYzine (Atarax) 25 mg tablet Take 25 mg by mouth as needed. Active lisdexamfetamine (Vyvanse) 20 mg capsule Take 1 capsule by mouth Daily at Noon. 04/02/2023 Active valACYclovir (Valtrex) 1 gram tablet Take 1 tablet by mouth 2 times daily. 04/16/2023 Active etonogestreL (Nexplanon) 68 mg Implant 68 mg by Subdermal route Continuous (Device). 03/16/2026 for removal Active Active Problems Problem Noted Date Diagnosed Date Headache- likely migraine 01/12/2013 Overview (01/14/2013): December,- Seen by neurologist and started on amitriptyline 10 mg daily. She has ordered a MRI and labs (cbc with diff, TSH, metabolic panel, lyme) . Keeping headache diary. Shaking spells 01/12/2013 Overview (01/14/2013): EEG ordered. Healthcare maintenance 08/30/2010 Overview (01/04/2013): Generally healthy- bright/sensible young woman Started OCP's to regulate menses ([id number]) and very happy. TSH normal at 0.69. Xray done after fall in September, revealed: Slight scoliosis with concavity to the left. 08-21-12 NEW IHQ COMPLETED [place] teeth impacted December,- Headaches behind right eye - referred to neurology Borderline elevated BP (01/04/13) - will check weekly for the next month. Resolved Problems Problem Noted Date Diagnosed Date Resolved Date Back injury 10/02/2011 05/22/2012 Overview (10/02/2011): September,- Fell 6 feet onto her back and sustained a contusion - returned to full work duty. Immunizations Name Administration Dates Next Due DT 02/02/1993,1992 DTaP 04/19/1999,04/28/1996,03/01/1994 Diphtheria,pertussis,tetanus 1992 HIB Vaccine PRP-T (ActHIB, H iberix, OmniHib) 11/30/1993,02/02/1993,1992,09/27 HPV, Quadrivalent (Gardasil) 09/04/2011,11/01/19 11,08/30/2010 Hepatitis B Unspecified Formulation 02/02/1993,0 1992,1992 Influenza (FluMist) Trivalen t Intranasal, LIVE 12/12/2008 MMR Vaccine LIVE 07/29/1997,11/30/1993 Meningococcal Conjugate 08/30/2010 Polio Vaccine (Orimune) 07/29/1997,02/01,1992,09/27 Tdap 10/05/2007 Family History Medical History Relation Comments Diabetes Maternal Grandfather Type 2 Heart Disease Maternal Grandfather maternal si de of family High Blood Pressure Maternal Grandmother and MGF Breast Cancer Mother Migraines Mother and MGM Sudden Neg Hx Relation Status Comments Brother 1 Alive Brother 2 Alive Father Alive Maternal Grandfather Alive Maternal Grandmother Alive Mother Alive Paternal Grandfather Alive Paternal Grandmother Alive Social History Tobacco Use Types Packs/Day Years Used Date Smoking Tobacco: Never Smokeless Tobacco: Never Tobacco Cessation:Counseling Given: Not Answered Alcohol Use Standard Drinks/Week Comments No 0 (1 standard drink = 0.6 oz pur e alcohol) Sex and Gender Information Value Date Recorded Sex Assigned at Not on file Gender Identity Not on file Sexual Orientation Not on file Last Filed Vital Signs Vital Sign Reading [...] Mass Index 34.06 05/05/2023 8:30 AM EST Plan of Treatment Health Maintenance Due Date Last Done Comments HIV screen 2010 Hepatitis C Screening 2010 Lipid Screening 2010 Tetanus vaccine 10/04/2017 10/05/2007, 05/1999, 04/28/1996, Additional history exists HPV test 2022 PAP Smear 2022 Covid-19 Vaccine ( - 2022-2 4 season) 2022 Influenza (Flu) vaccine (1 o f 1 - Influenza standard series) 11/16/2023 12/12/2008 Hepatitis B vaccine (0-59 yrs) Completed 1 1992, 1990, 1992 Tdap adult Completed 10/05/2007 HPV vaccine Completed 09/04/2011, 10/15, 08/30/2010 Care Teams Speech Pathologist Assistant Relationship Specialty Start Date End Date Carol Colon, WARP CHANGER [facility] [place] [address] PCP - General Family Medicine 05/05/23
--- OUTSIDE RECORDS SUMMARY | 2023-10-15 15:24 | XMS_ITS | Encounter Summary ---
Author Organization [facility] Address [address] [place] [address] Care Team Providers Care Manager Willow Name Role Phone Unknown, Provider Primary Care Provider Encounter Details Date Type Department Care Team (Late st Contact Info) Description 01/13/2019 10:00 EDT Hospital Encounter [address] [address] Unknown, Provider, Social History Tobacco Use Types Packs/Day Years [...] on filedocumented in this encounter Care Teams Manager Willow Relationship Specialty Start Date End Date Unknown, Provider, PCP - General 01/13/19 documented as of this encounter
--- OUTSIDE RECORDS SUMMARY | 2023-10-15 15:24 | XMS_ITS | Encounter Summary ---
Author Organization [facility] Address [facility] [place] [address] Care Team Providers Care Technical Sales Manager Name Role Phone Devin Mims DNP Primary Care Provider Encounter Details Date Type Department Care Team (Late st Contact Info) Description 12/29/2019 Notes Only [place] [address] Joseph Shankar MD [facility] DR HEMATOLOGY/ONCOLOGY [place] [id number] Social History Tobacco Use Types Packs/Day Years Used Date Smoking Tobacco: Never Alcohol Use Standard Drinks/Week Comments No 0 (1 standard drink = 0.6 oz pur e alcohol) Sex and Gender Information Value Date Recorded Sex Assigned at Not on file Gender Identity Not on file Sexual Orientation Not on file documented as of this encounter Progress Notes * Joseph Shankar MD - 12/29/2019 1:31 PM EDT I have reviewed the patient's record and given personal and/or family history of cancer she should be seen by genetic counselor. This is scheduled for later this week. documented in this encounter Plan of Treatment Not on file documented as of this encounter Visit Diagnoses Not on filedocumented in this encounter Care Teams Technical Sales Manager Relationship Specialty Start Date End Date Devin Mims DNP PCP - General Family Medicine 09/13/19 05/04/23 documented as of this encounter
--- OUTSIDE RECORDS SUMMARY | 2023-10-15 15:24 | XMS_ITS | Encounter Summary ---
Author Organization [facility] Address [facility] [place] [address] Care Team Providers Care Technical Internship Name Role Phone Triston Goldstein MD Primary Care Provider [phone] Reason for Visit * Reason Onset Date Comments Medication Refill 02/22/2013 Encounter Details Date Type Department Care Team (Late st Contact Info) Description 02/22/2013 Refill Pediatric & Adolescent Medicine at [address] [phone] Rut Valdovinos APRN [facility] [place] [address] Social History Tobacco Use Types Packs/Day Years Used Date Smoking Tobacco: Never Alcohol Use Standard Drinks/Week Comments No 0 (1 standard drink = 0.6 oz pur e alcohol) Sex and Gender Information Value Date Recorded Sex Assigned at Not on file Gender Identity Not on file Sexual Orientation Not on file documented as of this encounter Miscellaneous Notes * Telephone Encounter - Michelle Raphael RN - 02/22/2013 1:28 PM EST See below. 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 I pended a script to Care Sunil for you to sign. Has a reminder HPE in August. * Telephone Encounter - YadielKelseyPoppy H - 02/22/2013 11:46 AM EST Pt called she had a change to her insurance and needs to use the mail away Rx. Rx: control [facility] / pt ID [id number] PH: [phone] Pt will be out this week, so if we could call 1 month into [place]/[facility] [place] this would be helpful documented in this encounter Plan of Treatment Not on file documented as of this encounter Visit Diagnoses Not on filedocumented in this encounter Care Teams Technical Internship Relationship Specialty Start Date End Date Triston Goldstein MD [address] [place] [address] PCP - General 01/26/13 03/07/13 documented as of this encounter
--- OUTSIDE RECORDS SUMMARY | 2023-10-15 15:24 | XMS_ITS | Referral Summary ---
Author Organization Health system Address [address] [place] [address] Care Team Providers Care Hair Specialist Name Role Phone Unknown, Provider Primary Care Provider Social History Tobacco Use Types Packs/Day Years Used Date Smoking Tobacco: Never Assessed Interpersonal Safety Answer Date Record ed Physically Hurt Never 10/18/2019 Verbally Threaten Not on file 10/18/2019 Sex and Gender Information Value Date Recorded Sex Assigned at Not on file Gender Identity Not on file Sexual Orientation Not on file Plan of Treatment Not on file Care Teams Hair Specialist Relationship Specialty Start Date End Date Unknown, Provider, PCP - General 01/13/19
--- OUTSIDE RECORDS SUMMARY | 2023-10-15 15:24 | XMS_ITS | Encounter Summary ---
Author Organization [facility] Address [address] [place] [address] Care Team Providers Care Hr Analyst Name Role Phone Unknown, Provider Primary Care Provider Encounter Details Date Type Department Care Team (Late st Contact Info) Description 03/21/[address] [facility] Pathology & Laboratory Medicine - [facility] [address] [place] [address] Outr Resulting Lab, Provider Social History Tobacco [...] Procedure Name Priority Date/Time Associated Diagnosis Comments HOLD SST Today 03/20/2023 12:30 EST HOLD SST Today 03/20/2023 12:30 EST THYROPEROXIDASE ANTIBODY Today 03/20/2023 12:30 EST ANTI THYROGLOBULIN Today 03/20/2023 12 :30 EST ANTI NUCLEAR AB (JOSTIN), IFA Today 03/20/2023 12:30 EST documented in this encounter Results * HOLD SST (03/20/2023 12:30 EST) Hold Hold 03/21/2023 18:46 EST [facility] Blood VENOUS BLOOD / Unknown 03/20/2023 12:30 EST 03/21/2023 17:42 EST Provider Outr Resulting Lab LAB INFO SER VICE AND SUPPORT & PHONE RESULT Performing Organization Address City/[facility]/ZIP Co de Phone Number [facility] [address] [place] [phone] * HOLD SST (03/20/2023 12:30 EST) Hold Hold 03/21/2023 18:46 EST [facility] Blood VENOUS BLOOD / Unknown 03/20/2023 12:30 EST 03/21/2023 17:42 EST Provider Outr Resulting Lab LAB INFO SER VICE AND SUPPORT & PHONE RESULT Performing Organization Address [facility] Co de Phone Number [facility] [address] [place] [address] * THYROPEROXIDASE ANTIBODY (03/20/2023 12:30 EST) Thyroperoxidase Ab 37 <=60 U/mL 2023 19:06 EST [facility] Blood VENOUS BLOOD / Unknown 03/20/2023 12:30 EST 03/21/2023 17:42 EST Provider Outr Resulting Lab CHEMISTRY & BLOOD GAS ORDERABLES Performing Organization Address [facility]/ZIP Co de Phone Number [facility] [address] [place] [address] * (ABNORMAL) ANTI THYROGLOBULIN (03/20/2023 12:30 EST) Anti-Thyroglob ulin 491(H) <=60 U/mL 03/21/2023 19:07 EST [facility] Blood VENOUS BLOOD / Unknown 03/20/2023 12:30 EST 03/21/2023 17:42 EST Provider Outr Resulting Lab CHEMISTRY & BLOOD GAS ORDERABLES Performing Organization Address City/[facility]/ZIP Co de Phone Number [facility] [address] [place] [address] * ANTI NUCLEAR AB (JOSTIN), IFA (03/20/2023 12:30 EST) JOSTIN Interpretation Negative Negative 2023 16:00 EST [facility] Comment:No titer performed, JOSTIN Screen is negative. Blood VENOUS BLOOD / Unknown 03/20/2023 12:30 EST 03/21/2023 17:42 EST Narrative [facility] - 03/24/2023 16:00 EST Results were obtained with the INOVA NOVA Lite HEp-2 JOSTIN Kit by indirect immunofluorescence. Provider Outr Resulting Lab IMMUNOLOGY A ND SEROLOGY ORDERABLES [facility] [address] [place] [address] documented in this encounter Visit Diagnoses Not on filedocumented in this encounter Care Teams Hr Analyst Relationship Specialty Start Date End Date Unknown, Provider, PCP - General 01/13/19 documented as of this encounter
--- OUTSIDE RECORDS SUMMARY | 2023-10-15 15:24 | XMS_ITS | Encounter Summary ---
Author Organization [facility] Address [facility] [place] [address] Care Team Providers Care Supervisor Patching Name Role Phone Rut Valdovinos JESSEE Primary Care Provider [phone] Encounter Details Date Type Department Care Team (Late st Contact Info) Description 01/21/2013 2:30 PM EST Office Visit MR at [address] [phone] Headache; Episode of shaking Social History Tobacco Use Types Packs/Day Years Used Date Smoking Tobacco: Never Sex and Gender Information Value Date Recorded Sex Assigned at Not on file Gender Identity Not on file Sexual Orientation Not on file documented as of this encounter Miscellaneous Notes * Miscellaneous - Provider, Scanning - 01/23/2013 12:48 PM EST * Miscellaneous - Provider, Scanning - 01/23/2013 12:00 PM EST documented in this encounter Plan of Treatment Not on file documented as of this encounter Procedures Procedure Name Priority Date/Time Associated Diagnosis Comments MRI BRAIN WWO CONTRAST (GENERIC) Routine 01/21/2013 2:50 PM EST Headache Episode of shaking documented in this encounter Results * MRI brain with/WO contrast (01/21/2013 2:50 PM EST) Anatomical Region Laterality Modality Head Magnetic Resonan ce 01/21/2013 2:50 PM EST Narrative 01/21/2013 3:05 PM EST Examination MR Brain W WO CONTRAST Clinical History RODRIGUEZ; ? seizures Comparison None Technique Multiplanar images of the brain were acquired without contrast per routine departmental protocol. ??The patient was administered 14 mL of Magnevist contrast intravenously. Findings There is normal differentiation of rogel and white matter without mass, stroke, migrational anomaly, or intracranial hemorrhage. ??There is a single nonspecific punctate focus of increased T2/FLAIR signal within the periventricular white matter of the left frontal lobe (series 4, image 13). Visualized mesial temporal lobes are normal in signal and configuration as is the visualized mamillary bodies, ??anterior horn of the temporal lobe, and fornices. There are no areas of abnormal enhancement following the administration of contrast. There are normal flow voids within the vessels at the level of the [place] of [place]. Midline structures are normal. Ventricles, cisterns, and extra-axial CSF spaces are normal. Orbits, skull base, and sinuses are normal. Impression Normal MRI of the brain. Procedure Note Brenton Haney, DO - 01/21/2013 Examination MR Brain W WO CONTRAST Clinical History RODRIGUEZ; ? seizures Comparison None Technique Multiplanar images of the brain were acquired without contrast per routine departmental protocol. The patient was administered 14 mL of Magnevist contrast intravenously. Findings There is normal differentiation of rogel and white matter without mass,stroke, migrational anomaly, or intracranial hemorrhage. There is a singlenonspecific punctate focus of increased T2/FLAIR signal within the periventricularwhite matter of the left frontal lobe (series 4, image 13). Visualized mesial temporal lobes are normal in signal and configuration asis the visualized mamillary bodies, anterior horn of the temporal lobe, and fornices. There are no areas of abnormal enhancement following the administration of contrast. There are normal flow voids within the vessels at the level of the circleof [place]. Midline structures are normal. Ventricles, cisterns, and extra-axial CSF spaces are normal. Orbits, skull base, and sinuses are normal. Impression Normal MRI of the brain. Swathi Allan MD IMG MRI ORDERABLES documented in this encounter Visit Diagnoses Diagnosis Headache(784.0) Headache Episode of shaking Abnormal involuntary movements documented in this encounter Care Teams Supervisor Patching Relationship Specialty Start Date End Date Rut Valdovinos, HONING MACHINE OPERATOR TOOL PCP - General 01/21/13 01/24/13 documented as of this encounter
--- OUTSIDE RECORDS SUMMARY | 2023-10-15 15:24 | XMS_ITS | Encounter Summary ---
Author Organization [facility] Address [facility] [place] [address] Care Team Providers Care Street Light Servicer Helper Name Role Phone Devin Mims DNP Primary Care Provider [phone] Reason for Visit * Consultation (Routine) - Specialty Diagnoses / Procedures Referred By Leslye t Referred To Contact Hematology and Oncology Diagnoses Nipple discharge Devin Mims DNP [address] [place] [address] [facility] [address] [place] [address] Referral ID Status Reason Start Date Expiration Date V isits Requested Visits Authorized [id number] Consult, Test & Treat Connection Center PCP Updated and/or Approved 01/04/2020 07/04/2020 6 6 Encounter Details Date Type Department Care Team (Late st Contact Info) Description 01/18/2020 2:00 PM EST Office [place] [phone] Saira June [address]N [facility] [place] [address] Breast pain Social History Tobacco Use Types Packs/Day Years Used Date Smoking Tobacco: Never Alcohol Use Standard Drinks/Week Comments No 0 (1 standard drink = 0.6 oz pur e alcohol) Sex and Gender Information Value Date Recorded Sex Assigned at Not on file Gender Identity Not on file Sexual Orientation Not on file documented as of this encounter Progress Notes * Saira June, MERCERIZING RANGE CONTROLLER - 01/18/2020 2:00 PM EST Ms. Santos is a 29 y.o. year-old patient who I am seeing at the request of Devin Mims to evaluate right breast pain with nipple discharge. Ms. Santos noticed her right breast seems to have bigger pores/bumps around her areola. She has right breast pain radiating to her axilla. She has also noticed stained bras but has not seen actual discharge. She denies any breast masses, breast trauma, or prior breast surgery. Imaging performed (right focused ultrasound) at [facility] on 09/21/19 was interpreted as Category 1. She does do occasional self-breast exams. Weight stable. She has no new or concerning complaints of fatigue, cardiovascular or respiratory symptoms. She does struggle with headaches for the last few months but she attributes this to her work. All other ROS are negative. Reproductive History: Menarche began at 13. She had a nexplanon placed in February of 2019. She likes this modality of control as it has stopped her usual heavy menses. Family History: Positive for breast cancer in her mother diagnosed at age 46, unclear if her mom had genetic testing. Allyson has met with a genetic counselor and it was decided that she would not test. 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 She does not smoke. Social etoh. Past Medical History: Noncontributory. Past Surgical History: Noncontributory Physical Exam: She looks well and is in no apparent distress. Her skin is anicteric with good turgor. Sclera are anicteric. Her head and neck are without masses or adenopathy. Her arms have good ROM without any evidence of lymphedema. Breasts are large. Her nipples are everted. NAC is normal in appearance. There is no axillary adenopathy on the right or the left. There are no skin changes or dimpling noted in either breast. I am unable to express discharge from either nipple. The left breast is notable for generally heterogenous breast tissue, without discrete masses- thereis firm tissue in the upper outer quadrant. Her right breast exam is similar in character to her left breast, without discrete masses and firm tissue in upper outer quadrant. Assessment: Clinical breast exam notable for fibrocystic breast tissue without discrete masses. Normal ultrasound. Plan: We discussed the various causes of breast pain to include hormonal influences, large breast size and need for better support. She understands that for most women breast pain is self limiting and will improve over time. I have recommended regular use of a supportive bra and consideration of a course of ibuprofen and or evening primrose oil. I have suggested she monitor her symptoms for the next several weeks and contact me if her pain worsens or if it does not improve. Saira June APRN documented in this encounter Plan of Treatment Not on file documented as of this encounter Visit Diagnoses Diagnosis Breast pain Mastodynia documented in this encounter Care Teams Street Light Servicer Helper Relationship Specialty Start Date End Date Devin Mims DNP PCP - General Family Medicine 09/13/19 05/04/23 documented as of this encounter
--- OUTSIDE RECORDS SUMMARY | 2023-10-15 15:24 | XMS_ITS | Encounter Summary ---
Author Organization [facility] Address [address] [facility] [place] [address] Care Team Providers Care Assistant Pressman Name Role Phone Devin Mims JULIO Primary Care Provider [phone] Encounter Details Date Type Department Care Team (Late st Contact Info) Description 11/08/2022 Ancillary Procedure [place] [phone] Carol Colon APRN [address] [place] [address] [place] [address] Social History Tobacco Use Types Packs/Day Years [...] Name Priority Date/Time Associated Diagnosis Comments FILM LIBRARY STORAGE ONLY ULTRASOUND STUDY Routine 11/08/2022 12:00 AM EDT documented in this encounter Results * Film Library- Storage Only Ultrasound Study (11/08/2022 12:00 AM EDT) Narrative [facility] - 05/05/2023 10:01 AM EST This exam is auto-finalizing. It's purpose is for storage only. Carol Colon APRN [facility] FILM LIBRARY ORD ERABLES [place], [place] documented in this encounter Visit Diagnoses Not on filedocumented in this encounter Care Teams Assistant Pressman Relationship Specialty Start Date End Date Devin Mims DNP PCP - General Family Medicine 09/13/19 05/04/23 documented as of this encounter
--- OUTSIDE RECORDS SUMMARY | 2023-10-15 15:24 | XMS_ITS | Encounter Summary ---
Author Organization [place] [address] Care Team Providers Care Child Care Center Assistant Director Name Role Phone Carol Colon APRN Primary Care Provider [phone] Encounter Details Date Type Department Care Team (Latest Contact Info) Description 05/05/2023 Travel Social History Tobacco Use Types Packs/Day Years [...] on filedocumented in this encounter Care Teams Child Care Center Assistant Director Relationship Specialty Start Date End Date Carol [place] [address] PCP - General Family Medicine 05/05/23 documented as of this encounter
--- OUTSIDE RECORDS SUMMARY | 2023-10-15 15:24 | XMS_ITS | Encounter Summary ---
Author Organization [facility] Address [address] [place] [address] Care Team Providers Care Product Inspection Supervisor Name Role Phone Unknown, Provider Primary Care Provider Encounter Details Date Type Department Care Team (Late st Contact Info) Description 03/21/2023 Lab Requisition [facility] Pathology & Laboratory Medicine - [facility] [address] [place] [address] Outr Resulting Lab, Provider Social History Tobacco [...] Procedure Name Priority Date/Time Associated Diagnosis Comments HSV (HERPES SIMPLEX VIRUS) MOLECULAR DETECTION, PCR Routine 03/20/2023 12:01 EST documented in this encounter Results * (ABNORMAL) HSV (HERPES SIMPLEX VIRUS) MOLECULAR DETECTION, PCR (03/20/2023 12:01 EST) Herpes Simplex Virus Molecular Detection 1, PCR Positive(A) Negative 03/22/2023 20:24 EST [facility] Herpes Simplex Virus Molecular Detection 2, PCR Negative Negative 03/22/2023 20:24 EST [facility] Swab LIP STRUCTURE / Unknown 03/20/2023 12:01 EST 03/21/2023 19:24 EST Provider Outr Resulting Lab MICROBIOLOGY - GENERAL ORDERABLES [facility] [address] [place] [address] documented in this encounter Visit Diagnoses Not on filedocumented in this encounter Care Teams Product Inspection Supervisor Relationship Specialty Start Date End Date Unknown, Provider, PCP - General 01/13/19 documented as of this encounter
--- OUTSIDE RECORDS SUMMARY | 2023-10-15 15:24 | XMS_ITS | Encounter Summary ---
Author Organization [facility] Address [address] [place] [address] Care Team Providers Care Calculating Machine Operator Name Role Phone Unknown, Provider Primary Care Provider Encounter Details Date Type Department Care Team (Late st Contact Info) Description 10/29/2022 Lab Requisition [facility] Pathology & Laboratory Medicine - [facility] [address] [place] [address] Outr Resulting Lab, Provider Social History Tobacco [...] Procedure Name Priority Date/Time Associated Diagnosis Comments PTH INTACT Routine 10/29/2022 12:48 EDT documented in this encounter Results * PTH INTACT (10/29/2022 12:48 EDT) Intact PTH 56 19 - 88 pg/mL 10/29/2022 23:06 EDT [facility] Blood VENOUS BLOOD / Unknown 10/29/2022 12:48 EDT 10/29/2022 21:32 EDT Provider Outr Resulting Lab CHEMISTRY & BLOOD GAS ORDERABLES [facility] [address] [place] [address] documented in this encounter Visit Diagnoses Not on filedocumented in this encounter Care Teams Calculating Machine Operator Relationship Specialty Start Date End Date Unknown, Provider, PCP - General 01/13/19 documented as of this encounter
--- OUTSIDE RECORDS SUMMARY | 2023-10-15 15:24 | XMS_ITS | Encounter Summary ---
Author Organization [facility] Address [facility] [place] [address] Care Team Providers Care Formulation Technician Name Role Phone ValdovinosRut barbour Norman HOOKS Primary Care Provider [phone] Encounter Details Date Type Department Care Team ([facility] st Contact Info) Description 03/16/2013 Telephone Neurology at [address] [phone] Swathi Allan MD [address] [facility] [address] Social History Tobacco Use Types Packs/Day Years Used Date Smoking Tobacco: Never Alcohol Use Standard Drinks/Week Comments No 0 (1 standard drink = 0.6 oz pur e alcohol) Sex and Gender Information Value Date Recorded Sex Assigned at Not on file Gender Identity Not on file Sexual Orientation Not on file documented as of this encounter Miscellaneous Notes * Telephone Encounter - Margarita Duckworth - 03/18/2013 11:31 AM EST Spoke to mom , she will speak to patient to come in sooner or another day per weather * Telephone Encounter - Alek Wong - 03/16/2013 12:54 PM EST A call was made to this patient as the consult she is scheduled for on 03/18/13 overlaps into the next follow up appointment. A message was left for the patient to call back to see if we can reschedulethe patient for a morning appointment on 03/18/13. Call Center- Please reschedule the patients consult for a spot in the morning on 03/18/13. Please update the task once complete. * Telephone Encounter - Alek Wong - 03/16/2013 9:23 AM EST A call was made to this patient as the consult she is scheduled for on 03/18/13 overlaps into the next follow up appointment. A message was left for the patient to call back to see if we can reschedulethe patient for a morning appointment on 03/18/13. Call Center- Please reschedule the patients consult for a spot in the morning on 03/18/13. Please update the task once complete. documented in this encounter Plan of Treatment Not on file documented as of this encounter Visit Diagnoses Not on filedocumented in this encounter Care Teams Formulation Technician Relationship Specialty Start Date End Date Rut Valdovinos, JESSEE PCP - General 03/18/13 03/21/13 documented as of this encounter
--- OUTSIDE RECORDS SUMMARY | 2023-10-15 15:24 | XMS_ITS | Continuity of Care Document ---
Author Organization [facility] Address [address] [place] [phone]- Care Team Providers Care Bellows Tester Name Role Phone NORBERT MAN APRN Primary Care Physician [phone] Encounter [facility] NBR [id number] Date(s): 09/28/23 - 09/28/23 [facility] [address] [place] [address]- Encounter Diagnosis Rash(Discharge Diagnosis) - 09/28/23 Discharge Disposition: Home or Self Care Attending Physician: SHERRI Head Allergies, Adverse Reactions, Alerts No Known Medication Allergies Assessment and Plan Extracted from: Title:Andrea Office Visit Note Author:SHERRI Head Date:09/28/23 1.??Rash??R21 Patient is a well-appearing 33-year-old female in no acute distress Localized erythematous rash to left buttocks on exam There is no concern for scabies It is hard to discern whether or not??this is??a bacterial infection such as staph??or an inflammatory reaction due to an insect bite Rx mupirocin and triamcinolone??to cover for??both Discussed OTCs and symptomatic care Reviewed return precautions Patient verbalized understanding ? Ordered: mupirocin 2% topical ointment, 1 katie, Topical, BID, apply to affected area, # 22 g, 0 Refill(s), Pharmacy: [facility] 268 triamcinolone 0.1% topical cream, 1 katie, Topical, BID, apply to affected area, # 30 g, 0 Refill(s), [id number] Office serv/reg katharina/wkend/holiday [id number], 09/28/23 13:26:00 EDT, Rash ?? Medications mupirocin 2% topical ointment 1 katie, Topical, BID, apply to affected area, # 22 g, 0 Refill(s), Pharmacy: [facility] 268 Start Date: 09/28/23 Stop Date: 10/05/23 Status: Ordered triamcinolone 0.1% topical cream 1 katie, Topical, BID, apply to affected area, # 30 g, 0 Refill(s), Pharmacy: [id number] Start Date: 09/28/23 Stop Date: 10/05/23 Status: Ordered valACYclovir 0 Refill(s) Start Date: 09/28/23 Status: Ordered Vyvanse 0 Refill(s) Start Date: 09/28/23 Status: Ordered Vital Signs Most recent to oldest [Reference Range]: 1 Temperature Oral [35.8-37.3 Deg C] 36.7 Deg C (09/28/23 1:31 PM) Peripheral Pulse Rate [60-100 bpm] 82 bp m (09/28/23 1:31 PM) Respiratory Rate [12-24 br/min] 16 br/mi n (09/28/23 1:31 PM) Blood Pressure [90-140/60-90 mmHg] 112/7 8mmHg (09/28/23 1:31 PM) Mean Arterial Pressure, Cuff [65-140 mmH g] 89 mmHg (09/28/23 1:31 PM) Social History Social History Type Response Tobacco Never tobacco user T obacco Use:. Sex Physician Outpatient Note * SHERRI Head: PERFORM Event Display: Office Clinic Note Physician Authored Date: [id number] MICHELE FRY :1990 Age:33 years Sex:Female Visit Date:09/28/2023 Primary Care Physician: NORBERT MAN APRN Chief Complaint Pt states she noticed a bug bite friday on her butt. Now it's spreading and getting more itchy. Just came back from [place]. History of Present Illness Patient presents to the clinic??with complaints??of??an itchy??rash/lesions??to her left buttock.??Patient??states it started out as a small??red bump??that was very itchy and has since spread. ??Patient has tried??Benadryl cream, cortisone??and??Neosporin??but nothing has seemed to help.?? Patient is concerned she may have something contagious. ??Patient states??no one else she was on vacation with is experiencing similar symptoms. ??Patient denies??rash anywhere else on the body.?? Patient denies??fever, chills and fatigue.?? Patient denies any other??symptoms or concerns at this time Review of Systems 12 point review of systems performed. Pertinent positives and negatives are noted in HPI.?? Physical Exam Vitals & Measurements T:??36.7?C ??(Oral)?? HR:??82??(Peripheral)?? RR:??16?? BP:??112/78?? SpO2:??100%?? Pain Score:??0?? General: patient is well developed, well nourished, coherent, in no distress Skin: warm and dry,??erythematous??raised??macular papular??rash noted to left buttocks,??no??crusting or??weeping, nontender,??localized area??about the size of a quarter??with satellite??lesions,??central scabbing noted, no drainage Head: normocephalic without evidence of trauma Eyes:??sclera and conjunctiva clear Mouth/Throat: mucous membranes moist Neck: ROM intact, no swelling Chest: respirations even and unlabored, no retractions or accessory muscle use noted Heart: No edema Abdomen: Not distended Musculoskeletal: moves all extremities with good strength Neuro: A&O x 4, speech clear, gait normal Assessment/Plan 1.??Rash??R21 Patient is a well-appearing 33-year-old female in no acute distress Localized erythematous rash to left buttocks on exam There is no concern for scabies It is hard to discern whether or not??this is??a bacterial infection such as staph??or an inflammatory reaction due to an insect bite Rx mupirocin and triamcinolone??to cover for??both Discussed OTCs and symptomatic care Reviewed return precautions Patient verbalized understanding Ordered: mupirocin 2% topical ointment, 1 katie, Topical, BID, apply to affected area, # 22 g, 0 Refill(s), Pharmacy: [facility] 2681 triamcinolone 0.1% topical cream, 1 katie, Topical, BID, apply to affected area, # 30 g, 0 Refill(s),Pharmacy: [facility]1 Office serv/reg katharina/wkend/holiday [id number], 09/28/23 13:26:00 EDT, Rash ?? Patient Instructions Verbal instructions provided. ??Patient declined discharge summary Problem List/Past Medical History Ongoing No qualifying data Historical No qualifying data Medications mupirocin 2% topical ointment, 1 katie, Topical, BID triamcinolone 0.1% topical cream, 1 katie, Topical, BID valACYclovir Vyvanse Allergies No Known Medication Allergies Social History Electronic Cigarette/Vaping Electronic Cigarette Use: Never. Tobacco Never tobacco user Tobacco Use:. Electronically Signed on 09/28/2023 15:15 EDT SHERRI Head Patient Care team information Care Team Personnel Name: NORBERT MAN APRN Position: No Access Member Role: Primary Care Physician Address: Address: [address] [facility], [place] [address]
--- OUTSIDE RECORDS SUMMARY | 2023-10-15 15:24 | XMS_ITS | Encounter Summary ---
Author Organization [facility] Address [facility] [place] [address] Care Team Providers Care Transportation Dispatcher Name Role Phone Triston Goldstein MD Primary Care Provider [phone] Reason for Visit * Reason Comments Medication Refill Encounter Details Date Type Department Care Team ([facility] st Contact Info) Description 01/24/2013 Refill Pediatric & Adolescent Medicine at [address] [phone] Rut Valdovinos APRN [facility] [place] [address] Social History Tobacco Use Types Packs/Day Years [...] Telephone Encounter - Katelyn Batista LPN - 01/25/2013 8:22 AM EST Was e-scribed 10-26-12, phoned into pharmacy today. documented in this encounter Plan of Treatment Not on file documented as of this encounter Visit Diagnoses Not on filedocumented in this encounter Care Teams Transportation Dispatcher Relationship Specialty Start Date End Date Triston Goldstein MD [address] [place] [address] PCP - General 01/25/13 01/25/13 documented as of this encounter
--- OUTSIDE RECORDS SUMMARY | 2023-10-15 15:24 | XMS_ITS | Encounter Summary ---
Author Organization [facility] Address [address] [place] [address] Care Team Providers Care Obiee Lead Developer Name Role Phone Unknown, Provider Primary Care Provider Encounter Details Date Type Department Care Team (Late st Contact Info) Description 06/18/2021 Lab Requisition [facility] Pathology & Laboratory Medicine - [facility] [address] [place] [address] Outr Resulting Lab, Provider Social History Tobacco [...] Procedure Name Priority Date/Time Associated Diagnosis Comments CHLAMYDIA/N. GONORRHOEAE AMPLIFIED NUCLEIC ACID Routine 06/18/2021 9:30 EDT documented in this encounter Results * CHLAMYDIA/N. GONORRHOEAE AMPLIFIED RNA (06/18/2021 9:30 EDT) Neisseria gonorrhoeae Result Negative Negative 06/19/2021 15:07 EDT [facility] Chlamydia trachomatis Result Negative Negative 06/19/2021 15:07 EDT [facility] Swab ENTIRE WALL OF CERVIX / Unknown 06/18/2021 9:30 EDT 06/18/2021 21:44 EDT Provider Outr Resulting Lab MICROBIOLOGY - GENERAL ORDERABLES [facility] [address] [place] [address] documented in this encounter Visit Diagnoses Not on filedocumented in this encounter Care Teams Obiee Lead Developer Relationship Specialty Start Date End Date Unknown, Provider, PCP - General 01/13/19 documented as of this encounter
--- OUTSIDE RECORDS SUMMARY | 2023-10-15 15:24 | XMS_ITS | Encounter Summary ---
Author Organization [facility] [place] [address] Care Team Providers Care Inclusion Teacher Name Role Phone Valdovinos Rut Norman HOOKS Primary Care Provider [phone] Reason for Visit * Reason Comments Other Encounter Details Date Type Department Care Team ([facility] Contact Info) Description 01/22/2013 Telephone Neurology at [facility] [address] [place] [phone] Swathi Allan MD [address] [facility] [place] [address] Social History Tobacco Use Types Packs/Day Years Used Date Smoking Tobacco: Never Alcohol Use Standard Drinks/Week Comments No 0 (1 standard drink = 0.6 oz pur e alcohol) Sex and Gender Information Value Date Recorded Sex Assigned at Not on file Gender Identity Not on file Sexual Orientation Not on file documented as of this encounter Miscellaneous Notes * Telephone Encounter - Caitlin Jones RN - 01/22/2013 1:08 PM EST Call to Allyson, the results of the MRI were reviewed. She voiced understanding and no further questions at this time. * Telephone Encounter - Hermilo Caba - 01/22/2013 1:02 PM EST Patient returning phone call * Telephone Encounter - Carisa Hudson RN - 01/22/2013 8:22 AM EST machine message left requesting pt. call back. * Telephone Encounter - Carisa Hudson RN - 01/22/2013 8:22 AM EST Message copied by CARISA HUDSON on FriJan 22, 2013 8:22 AM ------ Message from: CAITLIN JONES Created: FriJan 22, 2013 8:01 AM ----- Message ----- From: Swathi Hernandez MD Sent: 01/21/2013 4:26 PM To: Caitlin Jones RN Normal brain MRI. Thanks! Ms ----- Message ----- From: Department, Radiology Sent: 01/21/2013 3:05 PM To: Swathi Hernandez MD documented in this encounter Plan of Treatment Not on file documented as of this encounter Visit Diagnoses Not on filedocumented in this encounter Care Teams Inclusion Teacher Relationship Specialty Start Date End Date Rut Valdovinos APRN PCP - General 01/21/13 01/24/13 documented as of this encounter
--- OUTSIDE RECORDS SUMMARY | 2023-10-15 15:25 | XMS_ITS | Encounter Summary ---
Author Organization [facility] Address [facility] [place] [address] Care Team Providers Care Straight Knife Cutter Machine Name Role Phone Triston Goldstein MD Primary Care Provider [phone] Encounter Details Date Type Department Care Team (Late st Contact Info) Description 02/19/2010 3:45 PM EST Office Visit Pediatric & Adolescent Medicine at [address] [phone] Triston Goldstein MD [address] [place] [id number] Social History Tobacco Use Types Packs/Day Years Used Date Smoking Tobacco: Never Assessed Sex and Gender Information Value Date Recorded Sex Assigned at Not on file Gender Identity Not on file Sexual Orientation Not on file documented as of this encounter Plan of Treatment Not on file documented as of this encounter Visit Diagnoses Not on filedocumented in this encounter Care Teams Straight Knife Cutter Machine Relationship Specialty Start Date End Date Triston Goldstein MD [address] [place] [address] PCP - General 02/06/10 01/20/13 documented as of this encounter
--- OUTSIDE RECORDS SUMMARY | 2023-10-15 15:25 | XMS_ITS | Encounter Summary ---
Author Organization [facility] Address [facility] [place] [address] Care Team Providers Care Bootmaker Hand Name Role Phone Triston Goldstein MD Primary Care Provider [phone] Reason for Visit * Reason Comments Medication Refill Encounter Details Date Type Department Care Team ([facility] st Contact Info) Description 08/06/2012 Refill Pediatric & Adolescent Medicine at [address] [phone] Rut Valdovinos APRN [facility] [place] [address] Social History Tobacco Use Types Packs/Day Years [...] Telephone Encounter - Michelle Raphael RN - 08/06/2012 11:20 AM EDT Has a HPE with you 08-21-12. documented in this encounter Plan of Treatment Not on file documented as of this encounter Visit Diagnoses Not on filedocumented in this encounter Care Teams Bootmaker Hand Relationship Specialty Start Date End Date Triston Goldstein MD [address] [place] [id number] PCP - General 02/06/10 01/20/13 documented as of this encounter
--- OUTSIDE RECORDS SUMMARY | 2023-10-15 15:25 | XMS_ITS | Encounter Summary ---
Author Organization [facility] Address [facility] [place] [address] Care Team Providers Care Door Repairer Bus Name Role Phone Triston Goldstein MD Primary Care Provider [phone] Reason for Visit * Reason Onset Date Comments Headache 12/07/2012 Encounter Details Date Type Department Care Team (Late st Contact Info) Description 12/07/2012 Telephone Pediatric & Adolescent Medicine at [address] [phone] Michelle Raphael RN Headache Social History Tobacco Use Types Packs/Day Years [...] Telephone Encounter - Michelle Raphael RN - 12/17/2012 1:19 PM EDT Relayed to Allyson on on her voice mail. * Addendum Note - Jay Kent APRN - 12/17/2012 12:34 PM EDTAddended by: JAY KENT on: 12/17/2012 12:34 PM Modules accepted: Orders * Telephone Encounter - Jay Kent APRN - 12/17/2012 12:33 PM EDT Lets have her try anaprox 550 mg with vistaril 25 mg once (can repeat as often as every 12 hours) -called prescription in. * Telephone Encounter - Michelle Raphael RN - 12/17/2012 11:14 AM EDT Talked with Allyson. Says she has a constant headache. Her neck is sore. She has not tried Excedrin Migraine or massage/chiropracter. She does say that having caffeine will help relieve her headache for about an hour but then it comes back. You have limited openings this week. Any suggestions for Allyson? She is at [facility] and I did give her the [facility] phone #. She is not able to come in today and has class till 1p tomorrow. * Telephone Encounter - Poppy Cotto - 12/16/2012 5:02 PM EDT PT called Would like to get in this week. Offered earlier this afternoon but she could not come. If there areany cancellations in Jay's sched. Could you please call her Cc: Michelle * Telephone Encounter - Michelle Raphael RN - 12/07/2012 3:44 PM EDT Talked with Allyson. Headaches come on suddenly and are always different. They may last for a few minutes and other times they may last for hours. Discussed keeping a headache diary. She can try excedrin migraine when she gets a h/a. If a muscular cause, could try a chiropractor or a massage. Call if worse or bothersome or any new s/s before her appt. * Telephone Encounter - Poppy Cotto - 12/07/2012 1:53 PM EDT Pt wants appt to discuss migraines. I booked 1st avil 40 min w/ Jay on 12/24. In the meantime I told her a nurse would call her w/ suggestions. Pt says the headaches started about 2 month ago. She will get one daily or every other day. Sometimes she will go straight from school to work and not have any Advil w/ her so she does not take anything. She said she thinks her mom has a hx of migraines. documented in this encounter Plan of Treatment Not on file documented as of this encounter Visit Diagnoses Not on filedocumented in this encounter Care Teams Door Repairer Bus Relationship Specialty Start Date End Date Triston Goldstein MD [address] [place] [id number] PCP - General 02/06/10 01/20/13 documented as of this encounter
--- OUTSIDE RECORDS SUMMARY | 2023-10-15 15:25 | XMS_ITS | Encounter Summary ---
Author Organization [facility] Address [facility] [place] [address] Care Team Providers Care Magneto Electrician Name Role Phone Triston Goldstein MD Primary Care Provider [phone] Encounter Details Date Type Department Care Team (Late st Contact Info) Description 02/23/2010 1:00 PM EST Office Visit Pediatric & Adolescent Medicine at [address] [phone] Finesse Hawk MD [address] [place] [phone] Social History Tobacco Use Types Packs/Day Years Used Date Smoking Tobacco: Never Assessed Sex and Gender Information Value Date Recorded Sex Assigned at Not on file Gender Identity Not on file Sexual Orientation Not on file documented as of this encounter Plan of Treatment Not on file documented as of this encounter Visit Diagnoses Not on filedocumented in this encounter Care Teams Magneto Electrician Relationship Specialty Start Date End Date Triston Goldstein MD [address] [place] [address] PCP - General 02/06/10 01/20/13 documented as of this encounter
--- OUTSIDE RECORDS SUMMARY | 2023-10-15 15:25 | XMS_ITS | Encounter Summary ---
Author Organization [facility] Address [facility] [place] [address] Care Team Providers Care Hardener Helper Name Role Phone Triston Goldstein MD Primary Care Provider [phone] Reason for Referral * Consultation (Routine) - Closed Specialty Diagnoses / Procedures Referred By Contestephania t Referred To Contact Neurology Diagnoses Headache(784.0) Rut Valdovinos APRN [facility] [address] [facility] Neurology [address] [place] [id number] Referral ID Status Reason Start Date Expiration Date V isits Requested Visits Authorized [id number] Closed Consult, Test & Treat 01/04/2013 07/03/2013 1 1 Reason for Visit * Reason Comments Headache Encounter Details Date Type Department Care Team (Late st Contact Info) Description 01/04/2013 9:25 AM EDT Office Visit Pediatric & Adolescent Medicine at [address] [phone] Rut Valdovinos APRN [facility] [place] [address] Headache (Primary Dx) Discharge Disposition: Home Social History Tobacco Use Types Packs/Day Years [...] Sign Reading Time Taken Comments Blood Pressure 123/90 01/04/2013 9:33 AM EDT Pulse - - Temperature - - Respiratory Rate - - Oxygen Saturation - - Inhaled Oxygen Concentration - - Weight 68 kg (150 lb) 01/04/2013 9:33 AM EDT Height 161.3 cm (5' 3.5) 01/04/2013 9:33 AM EDT Body Mass Index 26.15 01/04/2013 9:33 AM EDT documented in this encounter Progress Notes * Rut Valdovinos APRN - 01/04/2013 12:40 PM EDT Assessment: Intermittent headache behind right eye x past 2 months of unclear etiology- perhaps sinus related. BP of 123/90 is high for Allyson but, would not seem high enough to explain the headache,so not sure if related in any way. Reassuring exam and fact that naprosyn helped is encouraging, but still an atypical presentation so would appreciate second opinion. Plan: Not sure of origin of headache - elected to refer to neurology for assessment and treatment suggestions. Will check BP weekly for the next month. Urine dip normal (no protein leaking) Follow-up: With neurology Clinician: Rut Valdovinos APRN Age: 22 y.o. Name: Allyson Santos Accompanied by: alone Patient Active Problem List Diagnosis ??? Healthcare maintenance Generally healthy- bright/sensible young woman Started OCP's to regulate menses ([id number]) and very happy. TSH normal at 0.69. Xray done after fall in September, revealed: Slight scoliosis with concavity to the left. 08-21-12 NEW IHQ COMPLETED [place] teeth impacted December,- Headaches behind right eye - referred to neurology Borderline elevated BP (01/04/13) - will check weekly for the next month. Outpatient Prescriptions Prior to Visit Medication Sig Dispense Refill ??? norgestimate-ethinyl estradiol (ORTHO-CYCLEN) 0.25-35 mg-mcg per tablet take 1 tablet by mouth once daily 84 tablet prn ??? [DISCONTINUED] naproxen sodium (ANAPROX) 550 mg tablet Take 1 tablet by mouth 2 times daily (with meals). 30 tablet 12 ??? [DISCONTINUED] hydrOXYzine (ATARAX) 25 mg tablet Take 1 tablet by mouth every 12 hours as needed (headache). 30 tablet 0 Last reviewed on 12/25/2012 7:54 AM by Rut Valdovinos APRN No Known Allergies Past Medical History Diagnosis Date ??? Varicella 1994 No past surgical history on file. Chief Complaint: had a chief complaint of Headache. History of Present Illness: Allyson is a 22 y.o. with headaches behind her right eye for the past 2months. Allyson feels that she often has a low grade ache behind her right eye, but then she will get shooting pains where it feels like my right eye is bulging forward up to 5 times per day that last a minute or two. No change in balance, normal appetite and elimination, not sick in any way - no congestion or conjunctivitis. When she has this pain behind her eye, she does not have any ipsilateral conjunctival injection or lacrimation, no nasal congestion or rhinorrhea, no eyelid droop, no forehead or facial swelling and no agitation. She does not experience sweating or tachycardia. No impaired vision, double vision or general aches or pains. She does have impacted wisdom teeth that sheplans to have pulled over winter school break (she had panoramic dental films in October) . 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 She tried naprosyn for a week and the headache completely went away- but, then it started to make her stomach hurt, so she stopped. She does not feel that ibuprofen or acetaminophen help. She tried atarax once (25 mg dose) and it just made her fall asleep. No head injury.Both mother and MGM have migraines. Allyson states she does feel like lying down when she has her hea daches - but, it doesn't really help. She denies nausea or vomiting - does not feel particularly sensitive to noise or light, but I can't stand to be near the TV. Has been on OCP's (containing estrogen) since 2011 and last week was her menses (hence, placebo pills) and she had no improvement inher headaches. No aura. Review of Systems: No fever, chills, eye redness or discharge, sore throat, cough, congestion, rhinorrhea, ear pain, SOB/wheezing, abd pain, nausea, vomiting, loose stools, myalgias/arthralgias, rash Vitals: BP 123/90 Ht 161.3 cm (5' 3.5) Wt 68.04 kg (150 lb) BMI 26.15 kg/m2 PHYSICAL EXAM Normal Abnormal Findings / Comments General WD/WN Healthy appearing Describes pain behind right eye as a one on a scale of 1-10 rightnow. Skin No rash or jaundice Head NCAT Eyes anicteric, no discharge or redness Normal fundoscopic exam, no nystagmus Ears Normal TM's, canals clear Nose / Throat Normal Oropharynx including tonsils [place] teeth half way through- tonsils out - denies sinus pain Neck Full ROM, nml thyroid Nodes no cervical adenopathy Pulmonary No wheeze or rhonchi, CTAB, no retractions or tachypnea Cardiac RRR,Nl S1 S2 no murmur Abdomen Soft, NT, ND, no HSM or masses Extremities/Ortho WNL Neuro/Psych Grossly Intact, alert, nml affect Normal cranial nerves, tone, reflexes, balance and strength Labs / Studies: Family History Problem Relation Age of Onset ??? Migraines Mother and MGM ??? High Blood Pressure Maternal Grandmother and MGF ??? Diabetes Maternal Grandfather Type 2 ??? Heart Disease Maternal Grandfather maternal side of family ??? Sudden Neg Hx Social History Narrative Allyson has her own apartment in [facility] she shares with a friend... Stepmom working: works at [employer] ([employer])... Father working: [email or web address])... School: [employer] majoring in Elementary Ed... Smoke exposure: None... Other: parents . Mom is Porsche and lives in [place]. Allyson sees her sometimes. * Catalina Tapia RN - 01/04/2013 9:34 AM EDT Here today alone. Immunizations: up to date Concerns: Allyson reports migraine headaches 4-5 days per week with sudden onset and mostly behind her right eye. She reports taking naprosyn but caused significant abdominal discomfort so she stopped. She was prescribed atarax 25mg, and reports this was too strong and made her too sleepy and she needed to go right to bed. documented in this encounter Plan of Treatment Scheduled Referrals Name Type Priority Associated Diagnoses Orde r Schedule Referral to Neurology Outpatient Referral Routine Headache Ordered: 01/04/2013 documented as of this encounter Visit Diagnoses Diagnosis Headache(784.0)- Primary Headache documented in this encounter Care Teams Hardener Helper Relationship Specialty Start Date End Date Triston Goldstein MD [address] [place] [id number] PCP - General 02/06/10 01/20/13 documented as of this encounter
--- OUTSIDE RECORDS SUMMARY | 2023-10-15 15:25 | XMS_ITS | Encounter Summary ---
Author Organization [facility] Address [facility] [place] [address] Care Team Providers Care Appeals Writer Name Role Phone Triston Goldstein MD Primary Care Provider [phone] Encounter Details Date Type Department Care Team (Late st Contact Info) Description 09/26/2011 External Results [address] [place] [address] Bruce Morales MD [address] [place] [address] [place] [address] Social History Tobacco Use Types Packs/Day Years [...] Procedure Name Priority Date/Time Associated Diagnosis Comments *XR GENERIC THORACIC SPINE Routine 09/21/2011 *XR GENERIC L SPINE Routine 09/21/2011 documented in this encounter Results * *XR generic l spine (09/21/2011) Anatomical Region Laterality Modality Radiographic Irma ging Specimen of unknown material (specimen) 09/21/2011 Impressions 09/26/2011 1:28 PM EDT Negative for acute body abnormality. Narrative 09/26/2011 1:28 PM EDT XRAY/L SPINE AP/LAT Clinical: Fell. Frontal and lateral radiographs of the thoracic spine reveal 12 pairs of ribs. Vertebral body heights and intervertebral disc spaces are maintained. Pedicles and spinous processes appear intact. There is a slight scoliosis with the concavity to the left. Copy of report in [facility]'s, [employer] box for review Bruce Morales MD IMG DX ORDERABLES * *XR generic thoracic spine (09/21/2011) Anatomical Region Laterality Modality Radiographic Irma ging Specimen of unknown material (specimen) 09/21/2011 Impressions 09/26/2011 1:31 PM EDT Negative for acute body abnormality. Narrative 09/26/2011 1:31 PM EDT XRAY/T SPINE AP/LAT Clinical: Fell. Radiographs of the lumbar spine reveal five lumbar appearing vertebral bodies. Vertebral body heights and intervertebral disc spaces are maintained. There is a slight rotary scoliosis with concavity to the right. Sacroiliac joints appears satisfactory. Copy of report in Rut Valdovinos's, [employer] box for review Bruce Morales MD IMG DX ORDERABLES documented in this encounter Visit Diagnoses Not on filedocumented in this encounter Care Teams Appeals Writer Relationship Specialty Start Date End Date Triston Goldstein MD [address] [place] [address] PCP - General 02/06/10 01/20/13 documented as of this encounter
--- OUTSIDE RECORDS SUMMARY | 2023-10-15 15:25 | XMS_ITS | Encounter Summary ---
Author Organization [facility] Address [facility] [place] [address] Care Team Providers Care Taxonomy Teacher Name Role Phone Triston Goldstein MD Primary Care Provider [phone] Encounter Details Date Type Department Care Team (Late st Contact Info) Description 08/29/2010 Abstract Pediatric & Adolescent Medicine at [address] [phone] Leeanna Ordonez, [facility] Social History Tobacco Use Types Packs/Day Years Used Date Smoking Tobacco: Never Assessed Sex and Gender Information Value Date Recorded Sex Assigned at Not on file Gender Identity Not on file Sexual Orientation Not on file documented as of this encounter Last Filed Vital Signs Vital Sign Reading Time Taken Comments Blood Pressure 122/76 10/13/2009 2:57 PM EDT Pulse - - Temperature - - Respiratory Rate - - Oxygen Saturation - - Inhaled Oxygen Concentration - - Weight 56.7 kg (125 lb) 10/13/2009 2:57 PM EDT Height 161.9 cm (5' 3.75) 10/13/2009 2:57 PM ED T Body Mass Index 21.62 10/13/2009 2:57 PM EDT Body Mass Index Percentile 57.88% 10/13/2009 2:5 7 PM EDT Growth Chart: CDC (Girls, 2- 20 Years) documented in this encounter Plan of Treatment Not on file documented as of this encounter Visit Diagnoses Not on filedocumented in this encounter Care Teams Taxonomy Teacher Relationship Specialty Start Date End Date Triston Goldstein MD [address] [place] [address] PCP - General 02/06/10 01/20/13 documented as of this encounter
--- OUTSIDE RECORDS SUMMARY | 2023-10-15 15:25 | XMS_ITS | Encounter Summary ---
Author Organization [facility] Address [facility] [place] [address] Care Team Providers Care Miller Wood Flour Name Role Phone Triston Goldstein MD Primary Care Provider [phone] Reason for Visit * Reason Onset Date Comments Referral 01/07/2013 asked pt to call back Encounter Details Date Type Department Care Team (Late st Contact Info) Description 01/07/2013 Telephone Pediatric & Adolescent Medicine at [address] [phone] Poppy Cotto Referral (asked pt to call back ) Social History Tobacco Use Types Packs/Day Years [...] encounter Miscellaneous Notes * Telephone Encounter - Poppy Cotto - 01/08/2013 1:14 PM EDT Spoke with Allyson. She will take the appt in [place]. Called [facility] in [facility] to cxl Hipolito appt. Faxed all records to [place]. * Telephone Encounter - Poppy Cotto - 01/08/2013 10:24 AM EDT Found earlier appt in [facility]01/12 arrival 9:30 [phone] Fax: [phone] [place] [address] Left ms with this info and asked pt to call me so I know if she can do this and if I needs to cxl the [facility] [place] appt in [place]. * Telephone Encounter - Poppy Cotto - 01/08/2013 9:10 AM EDT Pt scheuled for 03/25 w/ neurology. * Telephone Encounter - Bud Melgar LNA - 01/07/2013 4:21 PM EDT Allyson Mcwilliams calls back today to touch base with you. She indicates that you were working on a referral for her and was going to call her back when you called [facility] [place] documented in this encounter Plan of Treatment Not on file documented as of this encounter Visit Diagnoses Not on filedocumented in this encounter Care Teams Miller Wood Flour Relationship Specialty Start Date End Date Triston Goldstein MD [address] [place] [address] PCP - General 02/06/10 01/20/13 documented as of this encounter
--- OUTSIDE RECORDS SUMMARY | 2023-10-15 15:25 | XMS_ITS | Encounter Summary ---
Author Organization [facility] [place] [address] Care Team Providers Care High Climber Name Role Phone Triston Goldstein MD Primary Care Provider [phone] Reason for Visit * Reason Comments Well Child Encounter Details Date Type Department Care Team (Late st Contact Info) Description 09/04/2011 8:00 AM EDT Office Visit Pediatric & Adolescent Medicine at [address] [phone] Rut Valdovinos APRN [facility] [place] [address] Need for vaccination (Primary Dx); DUB (dysfunctional uterine bleeding); Healthcare maintenance Social History Tobacco Use Types Packs/Day Years [...] Sign Reading Time Taken Comments Blood Pressure 120/64 09/04/2011 7:57 AM EDT Pulse - - Temperature - - Respiratory Rate - - Oxygen Saturation - - Inhaled Oxygen Concentration - - Weight 60.3 kg (133 lb) 09/04/2011 7:57 AM EDT Height 162.6 cm (5' 4) 09/04/2011 7:57 AM EDT Body Mass Index 22.83 09/04/2011 7:57 AM EDT documented in this encounter Progress Notes * Rut Valdovinos APRN - 09/04/2011 8:44 AM EDT 18+ well adult visit summary Assessment: Healthy/Sensible/Bright 21 y.o., with DUB interested in hormone therapy to regulate Plan: HPV #2, considering HAV. Discussed DUB, options (nothing, pills, patch, ring, IUD, implant) and Allyson would like to try a monthly Menses pill- will start ortho cyclen this Friday (OCP handout reviewed). TSH ordered. Follow-up: 1 years for next HPE Provider: TANGELA Licona Name: Allyson Santos : [id number] Age: 21 y.o. Accompanied by: alone Interval history/parent concerns: 1. Would like to start the pill to regulate her period. Choosing abstinence, plans to wait until she is . Finds having unpredictable periods a pain. [id number]. LMP 08/30/11. Non smoker, No migraines. Healthy. Patient Active Problem List Diagnoses ??? 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 Started OCP's to regulate menses ([id number]). 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 Social function No problems- good friends Mood No depression or anxiety Activities/hobbies Works a lot Pre-Sports Evalualtion Denies Comments x Chest pain or palpitations x SOB/RAD x Syncope/LOC x h/o fracture or sprain x Previous head injury/concussion x FHx sudden , early heart dz, early CVA REVIEW OF SYSTEMS NL ABN Comments General x No weight loss, fatigue or fever Skin x No rashes, puritis, nail, or hair problems Eyes x No diplopia, discharge, or blurry vision ENT x No nasal congestion, tinnitus, otitis, epistaxis Pulmonary x No SOB, wheeze, or chronic cough Cardiac x No exercise intolerance, syncope with exercise, LOC. No chest pain or palpitations. No family history of sudden cardiac . 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 Fractures or sprains. Endocrine x No excessive thirst ROS o/w negative x Family History Problem Relation Age of Onset ??? Migraines Maternal Grandmother ??? High Blood Pressure Maternal Grandmother ??? High Blood Pressure Maternal Grandfather ??? Diabetes Maternal Grandfather Type 2 ??? Heart Disease Maternal Grandfather maternal side of family ??? Migraines Mother History Social History Narrative Members of household: Dad (Juan Pablo), stepmom (Yolette Barrientos), and Yolette's 2 children; Ezra and Shobha.Stepmom working: works at [employer] working: [employer]: [employer] fall 2011, majoring in Elementary Ed and Geography.Smoke exposure: noneOther: parents . Mom is [employer]orsche and lives in [place]. Allyson sees her sometimes. PHYSICAL EXAM BP 120/64 Ht 162.6 cm (5' 4) Wt 60.328 kg (133 lb) BMI 22.83 kg/m2 61.43% of growth percentile based on djqlhl-yyk-ivq. 45.91% of growth percentile based on [id number]-lgw. Hearing Screening 125Hz 250Hz 500Hz 1000Hz 2000Hz 4000Hz 8000Hz Right ear: 25 25 25 25 Left ear: 25 25 25 25 Vision Screening Comments: Far 20/20 OU. Near 20/30 OU. Normal Abnormal findings General WD/WN Healthy appearing Perfect exam head to toe Skin/Hair No rash Head Normocephalic Eyes PERRLA/anicteric, no discharge Ears Normal TM's, canals clear Nose/Throat Normal dentition, sinus non-tender Neck No thyromegaly, full ROM Pulmonary No wheeze or rhonchi Cardiac RRR, N1 S1 S2 no murmur, Quiet precordium, nml pulses Abdomen No hepatosplenomegaly/no tenderness, no masses Genitalia Deferred - denies issues Extremities/Ortho Normal, no scoliosis Neuro CN III-XII normal/normal gait IMMUNIZATIONS/MEDICATIONS: Given today None/UTD MCV4: Booster x HPV #2 Check varicella status Influenza vaccine x Informed consent obtained for above immunizations x Provider discuss immunizations and potential side effects x Immunization handouts given (VIS) ANTICIPATORY GUIDANCE: Discussed: x Expectations for no substance use/safe sexual activity/abstinence x Future plans after college x Making good choices Transition to adult PCP if applicable Safety issues: x Seat belt x No drinking and driving x sunscreen * Katelyn Batista LPN - 09/04/2011 8:04 AM EDT Alone for appointment. HPV #3 today, otherwise immunizations UTD, VIS given Hep A to discuss with provider. Concerns: Discuss contraception options. documented in this encounter Procedure Notes * Provider, Marine - 09/09/2011 1:18 PM EDTAssociated Order(s): SCAN DOC: LAB documented in this encounter Plan of Treatment Not on file documented as of this encounter Procedures Procedure Name Priority Date/Time Associated Diagnosis Comments LAB SCAN 09/09/2011 1:18 PM EDT documented in this encounter Results * SCAN DOC: LAB (09/09/2011 1:18 PM EDT) Narrative 09/09/2011 1:18 PM EDT Procedure Note Provider, Marine - 09/09/2011 1:18 PM EDT Scanning Provider MEDIA MGR SCAN EXT O RDR/RSLT documented in this encounter Visit Diagnoses Diagnosis Need for vaccination- Primary Need for prophylactic vaccination and inoculation against unspecified single disease DUB (dysfunctional uterine bleeding) Other disorder of menstruation and other abnormal bleeding from female genital tract Healthcare maintenance Routine general medical examination at a health care facility documented in this encounter Care Teams High Climber Relationship Specialty Start Date End Date Triston Goldstein MD [address] [place] [address] PCP - General 02/06/10 01/20/13 documented as of this encounter
--- OUTSIDE RECORDS SUMMARY | 2023-10-15 15:25 | XMS_ITS | Encounter Summary ---
Author Organization [facility] Address [facility] [place] [address] Care Team Providers Care Editor School Photograph Name Role Phone Triston Goldstein MD Primary Care Provider [phone] Reason for Visit * Reason Comments Immunizations HPV #2 Encounter Details Date Type Department Care Team ([facility] st Contact Info) Description 10/31/2010 3:30 PM EDT Office Visit Pediatric & Adolescent Medicine at [address] [phone] Need for HPV vaccination (Primary Dx) Social History Tobacco Use Types Packs/Day Years Used Date Smoking Tobacco: Never Smokeless Tobacco: Never Alcohol Use Standard Drinks/Week Comments No 0 (1 standard drink = 0.6 oz pur e alcohol) Sex and Gender Information Value Date Recorded Sex Assigned at Not on file Gender Identity Not on file Sexual Orientation Not on file documented as of this encounter Progress Notes * Michelle Raphael RN - 10/31/2010 3:40 PM EDT HPV #2 given without difficulty. Here with 2 friends who where driving her from here. Copy of immunization record given to her. Going to [employer] in the fall. documented in this encounter Plan of Treatment Not on file documented as of this encounter Visit Diagnoses Diagnosis Need for HPV vaccination- Primary Need for prophylactic vaccination and inoculation against other viral diseases documented in this encounter Care Teams Editor School Photograph Relationship Specialty Start Date End Date Triston Goldstein MD [address] [place] [address] PCP - General 02/06/10 01/20/13 documented as of this encounter
--- OUTSIDE RECORDS SUMMARY | 2023-10-15 15:25 | XMS_ITS | Encounter Summary ---
Author Organization [facility] Address [facility] [place] [address] Care Team Providers Care Business Solutions Architect Name Role Phone Triston Goldstein MD Primary Care Provider [phone] Reason for Visit * Reason Onset Date Comments Referral 01/08/2013 Encounter Details Date Type Department Care Team ([facility] Contact Info) Description 01/08/2013 Telephone Neurology at [address] [phone] Swathi Allan MD [address] [facility] [address] Referral Social History Tobacco Use Types Packs/Day Years [...] encounter Miscellaneous Notes * Telephone Encounter - Alek Ferris - 01/08/2013 4:25 PM EDT Received office notes see referral. * Telephone Encounter - Val Yap - 01/08/2013 10:21 AM EDT Referring Provider Name- JAY KENT APRN Referring Provider Phone Number- [phone] PCP Name- JAY KENT APRN PCP Phone Number- [phone] Insurance Carrier- [employer] Department being referred to- NEUROLOGY Reason for this Referral- HEADACHE Informed patient/ provider office to fax over insurance referral and all office notes pertaining tothis visit. Please view IDX for patients appointment, date, and time. documented in this encounter Plan of Treatment Not on file documented as of this encounter Visit Diagnoses Not on filedocumented in this encounter Care Teams Business Solutions Architect Relationship Specialty Start Date End Date Triston Goldstein MD [address] [place] [id number] PCP - General 02/06/10 01/20/13 documented as of this encounter
--- OUTSIDE RECORDS SUMMARY | 2023-10-15 15:25 | XMS_ITS | Encounter Summary ---
Author Organization [facility] Address [facility] [place] [address] Care Team Providers Care Apartment Coordinator Name Role Phone Triston Goldstein MD Primary Care Provider [phone] Reason for Visit * Reason Comments Medication Refill Encounter Details Date Type Department Care Team ([facility] st Contact Info) Description 11/03/2012 Refill Pediatric & Adolescent Medicine at [address] [phone] uRt Valdovinos APRN [facility] [place] [address] Social History Tobacco Use Types Packs/Day Years [...] on filedocumented in this encounter Care Teams Apartment Coordinator Relationship Specialty Start Date End Date Triston Goldstein MD [address] [place] [id number] PCP - General 02/06/10 01/20/13 documented as of this encounter
--- OUTSIDE RECORDS SUMMARY | 2023-10-15 15:25 | XMS_ITS | Encounter Summary ---
Author Organization [facility] Address [facility] [place] [address] Care Team Providers Care Sawmill Hand Name Role Phone Triston Goldstein MD Primary Care Provider [phone] Encounter Details Date Type Department Care Team (Late st Contact Info) Description 09/09/2011 External Results Pediatric & Adolescent Medicine at [address] [phone] Rut Valdovinos APRN [facility] [address] [place] [address] Social History Tobacco Use Types Packs/Day Years [...] Procedure Name Priority Date/Time Associated Diagnosis Comments TSH Routine 09/06/2011 11:19 AM EDT documented in this encounter Results * TSH (09/06/2011 11:19 AM EDT) Hemoglobin 12.0 - 16.0 EXTERNAL LAB TSH 0.69 EXTERNAL LAB Comment:0.34 - 3.0 uIU/ml Blood specimen (specimen) 09/06/2011 11:19 AM EDT Rut Valdovinos APRN CHEMISTRY ORDERABLES EXTERNAL LAB documented in this encounter Visit Diagnoses Not on filedocumented in this encounter Care Teams Sawmill Hand Relationship Specialty Start Date End Date Triston Goldstein MD [address] [place], [place] [phone] PCP - General 02/06/10 01/20/13 documented as of this encounter
--- OUTSIDE RECORDS SUMMARY | 2023-10-15 15:25 | XMS_ITS | Encounter Summary ---
Author Organization [facility] Address [facility] [place] [address] Care Team Providers Care Lockstitch Lining Maker Name Role Phone Triston Goldstein MD Primary Care Provider [phone] Reason for Visit * Reason Comments Headache Encounter Details Date Type Department Care Team ([facility] Contact Info) Description 01/12/2013 9:45 AM EDT Initial consult Neurology at [address] [phone] Swathi Allan MD [address] [facility] [place] [address] Headache; Episode of shaking; Shaking spells Social History Tobacco Use Types Packs/Day Years Used Date Smoking Tobacco: Never Sex and Gender Information Value Date Recorded Sex Assigned at Not on file Gender Identity Not on file Sexual Orientation Not on file documented as of this encounter Last Filed Vital Signs Vital Sign Reading Time Taken Comments Blood Pressure 124/64 01/12/2013 9:52 AM EDT Pulse 72 01/12/2013 9:52 AM EDT Temperature - - Respiratory Rate - - Oxygen Saturation - - Inhaled Oxygen Concentration - - Weight 68 kg (150 lb) 01/12/2013 9:52 AM EDT Height 160 cm (5' 3) 01/12/2013 9:52 AM EDT Body Mass Index 26.57 01/12/2013 9:52 AM EDT documented in this encounter Progress Notes * Swathi Hernandez MD - 01/12/2013 10:23 AM EDT I am seeing Allyson in consultation at the request of Rut Valdovinos APRN, for a history of headache. HISTORY OF PRESENT ILLNESS: Allyson is a very pleasant, 22-year-old, right-handed woman. She is accompanied by her boyfriend. They both contribute to essential parts of the history. In summary, Allyson has been suffering with headaches for a couple of months now. They started out gradually, and they were every other day on average. She cannot identify any particular precipitant event. Nothing has changed in terms of psychological stressors; and there is no history of head trauma or neck trauma. Her headaches have become daily now. They are always right-sided versus orbital, described as a throbbing pressure-like sensation, severe, on average 8-10 out of 10 in intensity. She denies any nausea or vomiting. She does have photophobia, but no phonophobia. She denies any other associated symptoms, such as weakness, numbness, incoordination, visual symptoms, etc. She denies any triggers that she can pinpoint. She denies any worsening factors. Her headaches usually come towards the second part of the day, and they get worse in the morning. Advil does not work. She was prescribed naproxen daily, which she took for a couple of weeks, and she was headache free for that duration, but the medication eventually upset her stomach, and she stopped using it. The headaches returned to the same level as before. She also took a dose of hydroxyzine as per her PCP records, which I have for review. That medication made her very drowsy, and she did not take it again. Her boyfriend recalls a history of what they called seizures, described as shaking all over her body associated with loss of consciousness. It occurs at night where her headaches get more intense. These last 10 or 15 seconds, and Allyson does not have any recollection of them. She only once felt it coming when she felt at excruciating headache. She feels dizzy afterwards for 10-15 minutes, but she does not necessarily describe a lot of confusion. She denies any tongue biting, bowel or bladder incontinence. She had 6-8 of these episodes over the last 2 months, and perhaps 1 last summer, also in the context of a severe headache. She denies any history of febrile seizures, head trauma, history of encephalitis or meningitis, or any other sizable POWER REACTOR SUPERVISOR infections. There is no family history of seizures, and no history of drug use. She never sought medical care with any one of these events because she was just scared. The remainder of the review of system is otherwise unremarkable as the can be seen in the patient intake form. Past medical history: Denies. Medication list: - Naproxen 550 mg twice daily. She stopped it now. - Oral contraceptives. Allergies: Denies. Social history: She is a student. She lives with her boyfriend, Stefan. She denies any alcohol, drug or tobacco use. Family history: Her mother and maternal grandmother have migraines. There is no family history of seizures. PHYSICAL EXAMINATION: Allyson is a very pleasant, young woman who appears her stated age, and in no acute distress. Her blood pressure is 134/64. Heart rate 72 and regular. Weight is 150 pounds. General medical exam revealed normal heart sounds to auscultation without murmurs. I did not detect any bruits on carotid or subclavian arteries. Extremities were without clubbing, cyanosis, swelling, varicosities, or tenderness. The peripheral pulses are present bilaterally in the feet. Chest was clear to auscultation. Higher cortical function, namely attention, concentration, orientation, judgment, fund of knowledge, remote and recent memory and language were intact as assessed by conversation today. Cranial nerve examination CN II - XII normal as outlined below: Pupils are round and equal and reactive to light and accommodation. Extraocular movements are intact in all directions of gaze. Visual rocha are full. There is no ptosis and no nystagmus. Funduscopic examination reveals sharp fundi bilaterally. There is no weakness of jaw opening or closure. V1 through V3 are intact to light touch and pinprick bilaterally. Face is symmetric and there is no evidence of upper or lower motoneuron involvement in the cranial nerve 7th. Hearing is intact to tuning fork testing bilaterally. Palate is moving equally and symmetrically on both sides. Tongue is midline without atrophy and fasciculations. There is no tongue weakness. Sternocleidomastoid and trapezius muscles are 5/5 bilaterally. On general musculoskeletal examination, patient has normal bulk and tone throughout. Strength is 5/5 throughout proximal and distal muscle groups in the upper and lower extremities. There is no pronator drift. Sensation is normal bilaterally to light touch, pinprick, vibration, and proprioception. Deep tendon reflexes are 2/4 in the triceps, biceps, brachioradialis, quadriceps, and ankles bilaterally. Plantar flexors are downgoing bilaterally. Coordination assessed by [id number] and bqqm-lr-edsj is normal bilaterally. There is no evidence of dysdiadochokinesia. Gait is normal. Patient is able to walk on toes, heels, and is able to walk with a narrow-based gait. Patient is able to tandem gait. ASSESSMENT AND PLAN: Allyson is a very pleasant, young woman with a history of likely migraine headaches complicated by rebound medication headaches. We discussed plans today about the potential of rebound medication headaches with all abortive medication, and advised her to minimize use of Naproxen to no more than twice a week as needed for abortive therapy since this appears to be an effective therapy for her. She will let me know if she continues having gastric upset, and we may either change naproxen or prescribe something for gastric protection. In terms of preventative therapy, I prescribed Amitriptyline 10 mg p.o. h.s. with a plan to increase it in weekly increments of 10 mg, up to 40-50 mg in 4-5 weeks, depending on her tolerance and response. We discussed main side effects including but not limited to dry eyes, dry mouth, constipation, somnolence, weight gain, etc. She will give me a call back with any problems with the medication. I asked her also to keep a headache diary, emphasizing the importance of identifying triggers, if possible, and especially if they are avoidable triggers. In regards to her history of shaking spells, they occur in the setting of her worst headaches, so I think there may be psychological nature to them. I doubt they are truly epileptiform in nature. However, since we do not know, I advised her not to drive for the time being, and generally to have seizure precautions, and avoid activities that may put herself or others in danger, including but not limited to driving, swimming, going on hikes, dangerous settings,operating machinery, etc. We are going to do a regular EEG, and if negative, we are going to do a 24-hour ambulatory EEG. I am also going to order an MRI of the brain with gadolinium to evaluate for any potential structural lesions; and do a CBC with differential, comprehensive metabolic profile, TSH, and Lyme titers. I will see Allyson back in followup in 3 months. In the meanwhile, she will call back with questions, updates or concerns as needed. Thank you for involving me in the care of this patient. Please send a carbon copy to Rut Valdovinos. documented in this encounter Miscellaneous Notes * Miscellaneous - Provider, Scanning - 01/14/2013 2:24 PM EDT documented in this encounter Plan of Treatment Not on file documented as of this encounter Results * MRI brain with/WO [...] the vessels at the level of the [place]. Midline structures are normal. Ventricles, cisterns, and extra-axial CSF spaces are normal. Orbits, skull base, and sinuses are normal. Impression Normal MRI of the brain. Procedure Note Brenton Haney DO - 01/21/2013 Examination MR Brain W [...] MRI of the brain. Swathi Allan MD IM MRI ORDERABLES documented in this encounter Visit Diagnoses Diagnosis Headache(784.0) Headache Episode of shaking Abnormal involuntary movements Shaking spells Abnormal involuntary movements Headache(784.0) Headache Episode of shaking Abnormal involuntary movements documented in this encounter Care Teams Lockstitch Lining Maker Relationship Specialty Start Date End Date Triston Goldstein MD [address] [place] [id number] PCP - General 02/06/10 01/20/13 documented as of this encounter
--- OUTSIDE RECORDS SUMMARY | 2023-10-15 15:25 | XMS_ITS | Encounter Summary ---
Author Organization [facility] Address [facility] [place] [address] Care Team Providers Care Dam Tender Name Role Phone Triston Goldstein MD Primary Care Provider [phone] Reason for Visit * Reason Comments Rash Encounter Details Date Type Department Care Team ([facility] Contact Info) Description 05/22/2012 8:45 AM EST Office Visit Pediatric & Adolescent Medicine at [address] [phone] Triston Goldstein MD [address] [place] [id number] Urticaria- no identified trigger (Primary Dx) Social History Tobacco Use Types [...] as of this encounter Progress Notes * Triston Goldstein MD - 05/22/2012 9:05 AM EST Visit Summary Allyson was seen today for rash. Diagnoses and associated orders for this visit: Urticaria- no identified trigger Symptomatic care with appropriate use of OTC medications. May use either Benadryl 25 mg or Orufzuju31-99 mg Expect improvement in 2-3 days. Call if any new worrisome symptoms, or not improving as expected. Follow up: prn Clinician: Triston Goldstein MD Age: 21 y.o. Name: Allyson Santos Accompanied by: Alone Chief Complaint: had a chief complaint of Rash. History of Present Illness: Allyson Santos is a 21 y.o. female who is here for The following problem (s): She started about 24 hours ago with a blotchy, itchy red rash, primarily on the face and trunk. The lesions have come and gone, and at times have been swollen. She has taken Benadryl this morning and the rash is improving. No new soap, laundry detergent, medicines, foods, and she feels well. In the past, she has one episode of hives that was associated with a strep throat. No fever. No earpain. No nasal congestion. No nausea, vomiting or diarrhea. Problem List: has Healthcare maintenance on her problem list. Review of Systems: See above Patient's medications, allergies, past medical, surgical, social and family histories were reviewedand updated as appropriate Past Medical History Diagnosis Date ??? Varicella 1995 History Social History Narrative Members of household: Dad (Juan Pablo), stepmom (Yolette Barrientos), and Yoletet's 2 children; Ezra and Shobha.Stepmom working: works at [employer] working: [employer] fall 2011, majoring in Elementary Ed and Geography.Smoke exposure: noneOther: parents . Mom is Porsche and lives in [place]. Allyson sees her sometimes. family history includes Diabetes in her maternal grandfather; Heart Disease in her maternal grandfather; High Blood Pressure in her maternal grandfather and maternal grandmother; and Migraines in hermaternal grandmother and mother. Vitals: There were no vitals taken for this visit. PHYSICAL EXAM OBJECTIVE: Vital signs as noted above. Skin exam: scattered blotchy erythematous flat lesions on face and neck. HEENT otherwise normal Assessment/Plan: See top of note Ely Barboza - 05/22/2012 8:53 AM EST Here alone today Immunizations: LEANNE Developed rash which started yesterday afternoon very red and splotchy. When she took a shower thismorning it began traveling everywhere became very itchy. She did take benadryl which helped some. documented in this encounter Plan of Treatment Not on file documented as of this encounter Visit Diagnoses Diagnosis Urticaria- no identified trigger- Primary Urticaria, unspecified documented in this encounter Care Teams Dam Tender Relationship Specialty Start Date End Date Triston Goldstein MD [address] [place] [address] PCP - General 02/06/10 01/20/13 documented as of this encounter
--- OUTSIDE RECORDS SUMMARY | 2023-10-15 15:25 | XMS_ITS | Encounter Summary ---
Author Organization [facility] [place] [address] Care Team Providers Care Digital Experience Manager Name Role Phone Triston Goldstein MD Primary Care Provider [phone] Reason for Visit * Reason Comments Annual Exam Encounter Details Date Type Department Care Team (Late st Contact Info) Description 08/21/2012 8:00 AM EDT Office Visit Pediatric & Adolescent Medicine at [address] [phone] Rut Valdovinos APRN [facility] [place] [address] Well adult exam (Primary Dx) Social History Tobacco Use Types [...] Sign Reading Time Taken Comments Blood Pressure 118/68 08/21/2012 7:57 AM EDT Right arm manual standard adult cuff. Pulse - - Temperature - - Respiratory Rate - - Oxygen Saturation - - Inhaled Oxygen Concentration - - Weight 64 kg (141 lb) 08/21/2012 7:57 AM EDT Height 161.3 cm (5' 3.5) 08/21/2012 7: 57 AM EDT Body Mass Index 24.59 08/21/2012 7:57 AM EDT documented in this encounter Progress Notes * Rut Valdovinos APRN - 08/21/2012 8:51 AM EDT 18+ well adult visit summary Assessment / Plan: Healthy 22 y.o., No contraindications to continued OCP's - refilled ortho cyclen, discussed acog guidelines, STD's, Chlamydia testing declined today. Some tendency to worry- discussed coping skills, ways our body speaks to us, counseling center at [facility] Vaccines: IUTD Follow-up: 1 years for next HPE- Allyson likely to transition to [facility] or [facility]. Provider: TANGELA Licona Name: Allyson Santos : [id number] Age: 22 y.o. Accompanied by: alone Interval history / concerns: 1. No concerns today- happy with the pill. Is in first relationship - Moving in with him actually -using the pill and condoms consistently. Patient Active Problem List Diagnoses ??? 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 Started OCP's to regulate menses ([id number]). TSH normal at 0.69. Xray done after fall in September, revealed: Slight scoliosis with concavity to the left. 08-21-12 NEW IHQ COMPLETED Past Medical History Diagnosis Date ??? Varicella 1994 No past surgical history on file. HEALTH MAINTENANCE: Comments Diet No issues- well rounded - trying to eat more greens and lean protein, misses her pasta- but, has more energy Sleep No insomnia generally, but when stressed she can toss and turn a bit Physical Activity [employer] club gym often [place] No constipation or diarrhea, stooling nmlly Dental Care Seen by dentist Substances Denies Sexual Activity Yes- first relationship using condoms and the pill Periods (female) Regular on the pill - normal TSH last year, as she has DUB when not on the pill School function Doing well in school - transferred to [facility] and very happy there - 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 Finds working with the [employer] exciting and wonderful, but very stressful. She has not tried counseling and does not feel it interferes with her life enough to need medication, but she does recognize that stress is a factor for her. 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 Pre-Sports Evalualtion Denies Comments x Chest pain or palpitations x SOB/RAD x Syncope/LOC x h/o fracture or sprain x Previous head injury/concussion x FHx sudden , early heart dz, early CVA REVIEW OF SYSTEMS Complete review of systems negative except as noted in the Interval History section. NL ABN Comments General x No weight loss, fatigue or fever Skin x No rashes, pruritis, nail, or hair problems Eyes x No diplopia, discharge, or blurry vision ENT x No nasal congestion, tinnitus, otitis, epistaxis Pulmonary x No SOB, wheeze, or chronic cough Cardiac x No exercise intolerance, syncope with exercise, LOC. No chest pain or palpitations. No family history of sudden cardiac . GI x Denies heartburn, abdominal pain x No dysuria, kidney or bladder problems YARD CONDUCTOR (females) x Denies issues DENTAL LAB TECHNICIAN x No headache, head injury/concussion Ortho x No joint swelling, pain, stiffness, or weakness. Fractures or sprains. Endocrine x No excessive thirst ROS o/w negative x Family History Problem (# of Occurrences) Relation (Name,Age of Onset) Diabetes (1) Maternal Grandfather: Type 2 Heart Disease (1) Maternal Grandfather: maternal side of family High Blood Pressure (1) Maternal Grandmother: and MGF Migraines (1) Mother: and MGM Negative family history of: Sudden Social History Narrative Allyson has her own apartment in [facility] she shares with a friend... Stepmom working: works at [employer] (Yolette)... Father working: [employer] (Juan Pablo)... School: [employer] majoring in Elementary Ed... Smoke exposure: None... Other: parents . Mom is [employer] and lives in [place]. Allyson sees her sometimes. PHYSICAL EXAM BP 118/68 Ht 161.3 cm (5' 3.5) Wt 63.957 kg (141 lb) BMI 24.59 kg/m2 Normalized eyklmp-pva-gpv data available only for age 0 to 20 years. Normalized izfgwws-gmj-zwt data available only for age 0 to 20 years. Normalized BMI data available only for age 2 to 20 years. Facility age limit for growth percentiles is 20 years. No exam data present Normal Comments General WD/WN Healthy appearing Skin/Hair No rash Head Normocephalic Eyes PERRLA/anicteric, no discharge Ears Normal TM's, canals clear Nose/Throat Normal dentition, sinus non-tender Neck No thyromegaly, full ROM Pulmonary No wheeze or rhonchi Cardiac RRR, N1 S1 S2 no murmur, Quiet precordium, nml pulses Abdomen No hepatosplenomegaly/no tenderness, no masses Genitalia Deferred - denies issues Extremities/Ortho Normal, no scoliosis Neuro CN III-XII normal/normal gait IMMUNIZATIONS/MEDICATIONS: Given today xx None/UTD MCV4: Booster HPV Check varicella status Influenza vaccine Informed consent obtained for above immunizations Provider discuss immunizations and potential side effects Immunization handouts given (VIS) ANTICIPATORY GUIDANCE: Discussed: x Expectations for no substance use/safe sexual activity/acog guidelines, STD's x Future plans - will be a lisa at [employer] x Making good choices x Transition to adult PCP - suggested ELINA Damico or Fabiola Mckenna APRN Safety issues: Seat belt No drinking and driving sunscreen * Katelyn Batista LPN - 08/21/2012 8:05 AM EDT Alone for appointment today. Immunizations: UTD, VIS given Hep A. Hearing: Pass Vision: Near and Far 20/30 OU. Facility age limit for growth percentiles is 20 years. Concerns: None. documented in this encounter Miscellaneous Notes * Miscellaneous - Provider, Marine - 08/21/2012 2:47 PM EDT documented in this encounter Plan of Treatment Not on file documented as of this encounter Visit Diagnoses Diagnosis Well adult exam- Primary Routine general medical examination at a health care facility documented in this encounter Care Teams Digital Experience Manager Relationship Specialty Start Date End Date Triston Goldstein MD [address] [place] [id number] PCP - General 02/06/10 01/20/13 documented as of this encounter
--- OUTSIDE RECORDS SUMMARY | 2023-10-15 15:25 | XMS_ITS | Encounter Summary ---
Author Organization [facility] Address [facility] [place] [address] Care Team Providers Care Forming Department End Finder Name Role Phone Triston Goldstein MD Primary Care Provider Reason for Visit * Reason Comments Medication Refill Encounter Details Date Type Department Care Team ([facility] st Contact Info) Description 10/26/2012 Refill Pediatric & Adolescent Medicine at [address] [phone] Rut Valdovinos APRN [facility] [place] [address] Social History Tobacco Use Types Packs/Day Years [...] Telephone Encounter - Katelyn Batista LPN - 10/26/2012 9:52 AM EDT Last rx 08-06-12 HPE 6- RMD HPE 6-14 documented in this encounter Plan of Treatment Not on file documented as of this encounter Visit Diagnoses Not on filedocumented in this encounter Care Teams Forming Department End Finder Relationship Specialty Start Date End Date Triston Goldstein MD [address] [place] [address] [phone] PCP - General 02/06/10 01/20/13 documented as of this encounter
--- OUTSIDE RECORDS SUMMARY | 2023-10-15 15:25 | XMS_ITS | Encounter Summary ---
Author Organization [facility] [place] [address] Care Team Providers Care Warp Dyeing Vat Tender Name Role Phone Triston Goldstein MD Primary Care Provider [phone] Reason for Visit * Reason Comments Well Child 20 Year Encounter Details Date Type Department Care Team (Late st Contact Info) Description 08/30/2010 12:55 PM EDT Office Visit Pediatric & Adolescent Medicine at [address] [phone] Rut Valdovinos APRN [facility] DR [place] [address] Routine child health exam; Vaccine for other single bacterial disease; Vaccine for other viral disease; Healthcare maintenance Social History Tobacco Use Types [...] Sign Reading Time Taken Comments Blood Pressure 106/80 08/30/2010 1:04 PM EDT Pulse - - Temperature - - Respiratory Rate - - Oxygen Saturation - - Inhaled Oxygen Concentration - - Weight 56.2 kg (123 lb 12.8 oz) 08/30/2010 1:04 PM EDT Height 162.6 cm (5' 4) 08/30/2010 1:04 PM EDT Body Mass Index 21.25 08/30/2010 1:04 PM EDT Body Mass Index Percentile 49.48% 08/30/2010 1:0 4 PM EDT Growth Chart: CDC (Girls, 2- 20 Years) documented in this encounter Progress Notes * Rut Valdovinos APRN - 08/30/2010 1:43 PM EDT 18+ well adult visit summary Assessment: Healthy 20yo, no concerns, making excellent choices - 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 Plan: Gave menactra and HPV #1 after VIS reviewed and consent obtained Follow-up: 1-2 years for next HPE, 2nd hpv in 2 months Provider: TANGELA Licona Name: Allyson Santos : [id number] Age: 20 y.o. Accompanied by: Friends Interval history/parent concerns: 1. No concerns - very healthy Patient Active Problem List Diagnoses Date Noted ??? Healthcare maintenance [V70.0Q] 08/30/2010 HABITS/HEALTH MAINTENANCE: Comments Prompt/guidelines Diet Well rounded (drop in weight percentiles since age 17 attributed to improved nutrition and sports participation) Healthy choices/obesity. Limit juices/no soda Sleep Through the night Physical Activity Field hockey Active 1 hr/day [place] Normal Dental Care Seen by dentist Brushes/floss teeth/sees dentist Substances Denies all Sexual Activity Likes boys - no boyfriend currently - choosing abstinence Periods (female) Regular - no issues School function Just graduated - will attend [employer] next year (with one of her best friends asa roommate) and study design technician education. 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 Fractures or sprains. Endocrine x No excessive thirst ROS o/w negative x family history includes Diabetes in her maternal grandfather; Heart Disease in her maternal grandfather; High Blood Pressure in her maternal grandfather and maternal grandmother; and Migraines in hermaternal grandmother and mother. History Social History Narrative Members of household: Dad (Juan Pablo), stepmom (Yolette Barrientos), and Yolette's 2 children; Ezra and Shobha.Stepmom working: works at [facility]ather working: self employedSchool: just graduated from [employer]. Planning to attend [employer] fall 2010, majoring in Sales Development Manager Ed.Smoke exposure: noneOther: parents . Mom is [employer] and lives in [place]. Allyson sees her sometimes. PHYSICAL EXAM BP 106/80 Ht 1.626 m (5' 4) Wt 56.155 kg (123 lb 12.8 oz) BMI 21.25 kg/m2 49.44% of growth percentile based on ffpbkl-crk-hhz. 46.69% of growth percentile based on tsiyfgl-tjv-okh. Hearing screen (25db at [phone]): nml Vision screen: nml Normal Abnormal findings General WD/WN Healthy appearing Perfect exam from head to toe Skin/Hair No rash Head Normocephalic Eyes PERRLA/anicteric, no discharge Ears Normal TM's, canals clear Nose/Throat Normal dentition, sinus non-tender Neck No thyromegaly, full ROM Pulmonary No wheeze or rhonchi Cardiac RRR, N1 S1 S2 no murmer, nl pulses Abdomen No hepatosplenomegaly/no tenderness, no masses Genitalia Deferred - denies issues Discussed acog guidelines Extremities/Ortho Normal, no scoliosis Neuro CN III-XII normal/normal gait xIMMUNIZATIONS/MEDICATIONS: Given today None/UTD Tdap: For ages 11 and up, and it has been 2 yrs since last Dtap, Td, dT. Only given once. x MCV4: For ages 11 and up. Only given once. x HPV #1: Three dose series. Check varicella status Influenza vaccine x Informed consent obtained for above immunizations x Provider discuss immunizations and potential side effects x Immunization handouts given (VIS) ANTICIPATORY GUIDANCE: Discussed: x Expectations for no substance use/safe sexual activity/abstinence as an option. x Future plans after high school x Making good choices Transition to adult PCP if applicable Safety issues: x Seat belt x Water safety x No drinking and driving , No texting and driving x Sunscreen Gun safe home Smoke & CO detector * Leeanna Ordonez MA - 08/30/2010 1:11 PM EDT Here with 2 friends. Hearing exam: Passed Vision: Far: R=20/20 L= 20/20 Near: R= 20/20 L= 20/20 Will do HPV and MCV4 today. documented in this encounter Plan of Treatment Not on file documented as of this encounter Visit Diagnoses Diagnosis Healthcare maintenance Routine general medical examination at a health care facility Vaccine for other single bacterial disease Need for other specified prophylactic vaccination against single bacterial disease Vaccine for other viral disease Need for prophylactic vaccination and inoculation against other viral diseases documented in this encounter Care Teams Warp Dyeing Vat Tender Relationship Specialty Start Date End Date Triston Goldstein MD [address] [place] [id number] PCP - General 02/06/10 01/20/13 documented as of this encounter
--- OUTSIDE RECORDS SUMMARY | 2023-10-15 15:25 | XMS_ITS | Encounter Summary ---
Author Organization [facility] Address [facility] [place] [address] Care Team Providers Care Manager Of Case Name Role Phone Triston Goldstein MD Primary Care Provider [phone] Encounter Details Date Type Department Care Team (Late st Contact Info) Description 02/26/2010 3:30 PM EST Office Visit Pediatric & Adolescent Medicine at [address] [phone] Rut Valdovinos APRN [facility] [address] [place] [address] Social History Tobacco Use Types Packs/Day Years Used Date Smoking Tobacco: Never Assessed Sex and Gender Information Value Date Recorded Sex Assigned at Not on file Gender Identity Not on file Sexual Orientation Not on file documented as of this encounter Plan of Treatment Not on file documented as of this encounter Visit Diagnoses Not on filedocumented in this encounter Care Teams Manager Of Case Relationship Specialty Start Date End Date Triston Goldstein MD [address] [place] [id number] PCP - General 02/06/10 01/20/13 documented as of this encounter
[2023-10-15 19:37] LABS: Abs Immature Grans 0.02 10^3/uL (0.0-0.06); Absolute Basophil Count 0.05 10^3/uL (0.0-0.2); Absolute Eosinophil Count 0.12 10^3/uL (0.0-0.7); Absolute Lymphocyte Count 2.72 10^3/uL (1.2-3.4); Absolute Monocyte Count 0.65 10^3/uL (0.1-0.8); Absolute Neutrophil Count 4.45 10^3/uL (1.2-6.7); Basophils % 0.6 %; Eosinophils % 1.5 %; HCT 41.3 % (36.0-46.0); HGB 13.8 g/dL (11.2-15.7); Immature Grans % 0.2 %; MCH 29.8 pg (27.0-33.0); MCHC 33.4 % (32.0-36.0); MCV 89 fL (80-95); MPV 10.3 fL (8.0-11.0); Monocytes % 8.1 %; Neutrophils % 55.6 %; Platelet Count 314 10^3/uL (130-400); RBC 4.63 10^6/uL (3.93-5.22); RDW 13.4 % (11.7-14.6); RDW-SD 44.2 fL; WBC 8.01 10^3/uL (4.4-10.8)
[2023-10-15 20:18] LABS: ALT 28 U/L (14-59); AST 16 U/L (15-37); Albumin 3.7 g/dL (3.4-5.0); Anion Gap 9.6 mmol/L (3-11); BUN 12 mg/dL (7-18); Bilirubin, Total 0.59 mg/dL (0.2-1.0); CO2 26.4 mmol/L (21.0-32.0); CREATININE 0.9 mg/dL (0.55-1.02); Chloride 105 mmol/L (98-107); Estimated GFR 87.65 (mL/min/1.73m2); Folate 8.8 ng/mL (8.6-20.0); Glucose 90 mg/dL (74-106); Potassium 3.9 mmol/L (3.5-5.1); Sodium 141 mmol/L (136-145); TSH 1.77 uIU/Ml (0.36-3.74); Total Protein 6.9 g/dL (6.4-8.2); Vitamin B12 692 pg/mL (193-986); Vitamin D 25 Total 27.3 ng/mL (30-100)
[2023-10-15 20:34] LABS: Alkaline Phosphatase 63 U/L (46-116)
[2023-10-16 21:00] LABS: T3, Total 148 ng/dL (97-169)
== END 2023-10-15 15:04 | disposition home or self-care (01) ==
LOC: NCHCN 15:03
PROVIDERS: Visit Provider Nurse Practitioner Family
DX: E07.1 Dyshormogenetic goiter (principal); R53.82 Chronic fatigue, unspecified
CPT/HCPCS: 80053; 82306; 82607; 82746; 84439; 84443; 84480; 85025

== ENCOUNTER 2024-02-26 16:42 | Outpatient (REF) | payer BC, SELFPAY ==
--- OUTSIDE RECORDS SUMMARY | 2024-02-26 17:23 | XMS_ITS | Continuity of Care Document ---
Author Organization [facility] Address [address] [place] [address] Care Team Providers Care Manager Plan Name Role Phone NORBERT MAN APRN Primary Care Physician [phone] Encounter LTTL_DE FIN NBR [id number] Date(s): 02/23/24 - 02/23/[address] [address] Encounter Diagnosis Acute left flank pain(Discharge Diagnosis) - 02/23/24 Bronchitis(Discharge Diagnosis) - 02/23/24 Discharge Disposition: Home or Self Care Attending Physician: Earl Flor MD Admitting Physician: Earl Flor MD Allergies, Adverse Reactions, Alerts No Known Medication Allergies Assessment and Plan Extracted from: Title:ED Provider Note Author:ELINA Aranda Date:02/23/24 Assessment/Plan 1.??Acute left flank pain??R10.9 Ordered: Tessalon Perles 100 mg oral capsule, 200 mg = 2 cap, Oral, TID, PRN as needed for cough, # 30 cap, 0 Refill(s), 03/01/24 21:44:00 EST, Pharmacy: [id number], 162, cm, 02/23/24 19:11:00 EST, Height, 84, kg, 02/23/24 19:13:00 EST, Weight Dosing ?? 2.??Bronchitis??J40 ?? Orders: Discharge Patient, 02/23/24 21:49:00 EST, Home Independently Patient Education Flank Pain, Adult Follow Up With When Contact Information NORBERT MAN APRN Within 1 week [facility] - [address] [address] [phone] ?? Additional Instructions: As we??discussed??your chest x-ray and laboratory studies today were reassuring.?? I suspect that your pain is musculoskeletal in nature??due to combination of your??coughing with your bronchitis and??your fall. ??You have been given a prescription for Tessalon Perles. ??You may use vvge-par-qoshmxe medicine such as Tylenol and ibuprofen for your pain. ??Follow-up closely with your primary care physician. ??Return for worsening in symptoms. 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[facility], 162, cm, 02/23/24 19:11:00 EST, Height, 84, kg, 02/23/24 19:13:00 EST, Weight Dosing Start Date: 02/23/24 Stop Date: 03/01/24 Status: Ordered triamcinolone 0.1% topical cream 1 katie, Topical, BID, apply to affected area, # 30 g, 0 Refill(s), Pharmacy: [id number] Start Date: 09/28/23 Stop Date: 10/05/23 Status: Ordered valACYclovir 0 Refill(s) Start Date: 09/28/23 Status: Ordered Vyvanse 0 Refill(s) Start Date: 09/28/23 Status: Ordered Mental Status 02/23/24 Eye Opening Response [place] Spontaneous ly Best Verbal Response [place] Oriented Best Motor Response [place] Obeys comman ds [place] Coma Score 15 Problem List Condition Confirmation Course Effective Dates Status Health St atus Informant Anxiety and depression Confirmed Active Results Laboratory List Name Date CBC w/ Diff 02/23/24 Comprehensive Metabolic Panel (CMP) 02/22 Lipase Level 02/23/24 Test Serum Qual 02/23/24 Urinalysis with Micro if Indicated and C ulture if Indicated 02/23/24 Automated Diff 02/23/24 Most recent to oldest [Reference Range]: 1 WBC [4.8-10.8 K/mcL] 10.6 K/mcL (02/23/24 8:55 PM) RBC [4.20-5.40 Million/mcL] 4.67 Million /mcL (02/23/24 8:55 PM) Neutro Auto [42.2-75.2 %] 65.6 % (02/23/24 8:55 PM) Lymph Auto [20.5-51.1 %] 25.2 % (02/23/24 8:55 PM) [place] Auto [1.7-9.3 %] 7.5 % (02/23/24 8:55 PM) Basophil Auto [0.0-0.8 %] 0.4 % (02/23/24 8:55 PM) BUN [7-25 mg/dL] 13 mg/dL (02/23/24 8:55 PM) UA Color LIGHT YELL *NA* (02/23/24 8:55 PM) Glucose Level [70-109 mg/dL] 74 mg/dL (02/23/24 8:55 PM) Potassium Level [3.5-5.1 mmol/L] 3.4 mmo l/L *LOW* (02/23/24 8:55 PM) Baso Absolute [0.0-0.2 K/mcL] 0.0 K/mcL (02/23/24 8:55 PM) MCV [81.0-99.0 fL] 90.6 fL (02/23/24 8:55 PM) UA Urobilinogen [0.2] 0.2 (02/23/24 8:55 PM) UA Bili [Negative] Negative (02/23/24 8:55 PM) UA Ketones [Negative] Negative (02/23/24 8:55 PM) AST [13-39 IntlUnit/L] 16 IntlUnit/L (02/23/24 8:55 PM) ALT [7-52 IntlUnit/L] 18 IntlUnit/L (02/23/24 8:55 PM) MCHC [32.0-37.0 g/dL] 34.1 g/dL (02/23/24 8:55 PM) Osmolality [275-295 mOsm/kg] 276 mOsm/kg (02/23/24 8:55 PM) Sodium Level [136-145 mmol/L] 139 mmol/L (02/23/24 8:55 PM) UA Leuk Est [Negative] Negative (02/23/24 8:55 PM) Lymph Absolute [1.2-3.4 K/mcL] 2.7 K/mcL (02/23/24 8:55 PM) UA Nitrite [Negative] Negative (02/23/24 8:55 PM) UA Glucose [Negative] Negative (02/23/24 8:55 PM) Hct [37.0-47.0 %] 42.3 % (02/23/24 8:55 PM) Lipase Level [11-82 unit/L] 40 unit/L 1 (02/23/24 8:55 PM) Calcium Level [8.6-10.3 mg/dL] 9.0 mg/dL (02/23/24 8:55 PM) [place] Absolute [0.1-0.6 K/mcL] 0.8 K/mcL *HI* (02/23/24 8:55 PM) Albumin Level [3.5-5.7 g/dL] 4.1 g/dL (02/23/24 8:55 PM) Protein Total [6.4-8.9 g/dL] 6.9 g/dL (02/23/24 8:55 PM) UA Protein [Negative] Negative (02/23/24 8:55 PM) MCH [27.0-31.0 pg] 30.9 pg (02/23/24 8:55 PM) Neutro Absolute [1.4-6.5 K/mcL] 7.0 K/mc L *HI* (02/23/24 8:55 PM) Bilirubin Total [0.3-1.0 mg/dL] 0.4 mg/d L (02/23/24 8:55 PM) Hgb [12.0-16.0 g/dL] 14.4 g/dL (02/23/24 8:55 PM) Alk Phos [34-104 IntlUnit/L] 55 IntlUnit /L (02/23/24 8:55 PM) UA Blood [Negative] Negative (02/23/24 8:55 PM) MPV [7.4-10.4 fL] 8.4 fL (02/23/24 8:55 PM) UA Spec Grav [1.001-1.030] 1.010 (02/23/24 8:55 PM) Platelets [130-400 K/mcL] 304 K/mcL (02/23/24 8:55 PM) CO2 [21-31 mmol/L] 27 mmol/L (02/23/24 8:55 PM) Eos Absolute [0.0-0.2 K/mcL] 0.1 K/mcL (02/23/24 8:55 PM) UA pH [5.00-9.00] 7.00 (02/23/24 8:55 PM) UA Appear [Clear] Clear (02/23/24 8:55 PM) Chloride Level [98-107 mmol/L] 105 mmol/ L (02/23/24 8:55 PM) RDW-CV [11.5-14.5 %] 13.4 % (02/23/24 8:55 PM) A/G Ratio [1.0-2.5 g/dL] 1.5 g/dL (02/23/24 8:55 PM) BUN/Creat Ratio [8.0-20.0] 13.0 (02/23/24 8:55 PM) Globulin [2.3-3.5 g/dL] 2.8 g/dL (02/23/24 8:55 PM) hCG Qual Serum [Negative] Negative (02/23/24 8:55 PM) Slide Review Not Indicated (02/23/24 8:55 PM) Urine Srce Clean Catch (02/23/24 8:55 PM) Creatinine Level [0.60-1.20 mg/dL] 1.00 mg/dL (02/23/24 8:55 PM) Anion Gap [3.0-12.0] 7.0 (02/23/24 8:55 PM) Eos, Auto [0.00-3.00 %] 1.30 % (02/23/24 8:55 PM) eGFR CKD-EPI [>=60 mL/min/1.73 m2] 77 mL /min/1.73 m2 (02/23/24 8:55 PM) 1Interpretive Data: K-knezhb-n-benzoquinone imine (meabolite of Acetaminophen) will generate erroneously low lipase results in samples for patients that have taken toxic doses of acetaminophen. Radiology Reports * Exam Date Time Procedure Performing Provider Status 02/23/24 8:00 PM XR Chest 2 Views Dylan Zelaya (Verified) Notes: (XR Chest 2 Views) Reason For Exam: Cough XR Chest 2 Views PROCEDURE INFORMATION: Exam: XR Chest Exam date and time: 02/23/2024 8:09 PM Age: 33 years old Clinical indication: Cough TECHNIQUE: Imaging protocol: Radiologic exam of the chest. Views: 2 views. COMPARISON: CT ABD/PELVIS WO CONTRAST 02/19/2019 6:25 PM FINDINGS: Lungs: Unremarkable. No consolidation. Pleural spaces: Unremarkable. No pleural effusion. No pneumothorax. Heart/Mediastinum: Unremarkable. No cardiomegaly. Bones/joints: Unremarkable. IMPRESSION: No acute findings. THIS DOCUMENT HAS BEEN ELECTRONICALLY SIGNED BY ELTON HUBER MD on 02/23/2024 09:03 PM Final Signed by: Elton Huber MD Signed (Electronic Signature): 02/23/2024 9:03 pm Vital Signs Most recent to oldest [Reference Range]: 1 2 3 Temperature Oral [35.8-37.3 Deg C] 36.7 Deg C (02/23/24 7:11 PM) Peripheral Pulse Rate [60-100 bpm] 80 bpm (02/23/24 8:30 PM) 91 bpm (02/23/24 8:00 PM) 112 bpm *HI* (02/23/24 7:30 PM) Respiratory Rate [-24 br/min] 16 br/min (02/23/24 7:11 PM) Blood Pressure [90-120/60-80 mmHg] 131/83mmHg *HI* (02/23/24 8:30 PM) 128/88mmHg *HI* (02/23/24 8:00 PM) 126/93mmHg *HI* (02/23/24 7:30 PM) Mean Arterial Pressure, Cuff [65-140 mmHg] 99 mmHg (02/23/24 8:30 PM) 101 mmHg (02/23/24 8:00 PM) 104 mmHg (02/23/24 7:30 PM) Mean Arterial Pressure Cuff 97 mmHg (12/9/24 8:30 PM) 100 mmHg (02/23/24 8:00 PM) 104 mmHg (02/23/24 7:30 PM) Weight 84 kg (02/23/24 7:11 PM) Weight Dosing 84.000 kg (02/23/24 7:11 PM) Height 162 cm (02/23/24 7:11 PM) Body Mass Index 32.01 kg/m2 (02/23/24 7:11 PM) Social History Social History Type Response Tobacco Never tobacco user T obacco Use:. Sex Sex Representation Female (finding) Hospital Discharge Instructions Patient Education 02/23/2024 20:45:30 Flank Pain, Adult Flank Pain, Adult Flank pain is pain that is located on the side of the body between the upper abdomen and the spine.This area is called the flank. The pain may occur over a short period of time (acute), or it may belong-term or recurring (chronic). It may be mild or severe. Flank pain can be caused by many things, including: ??? Muscle soreness or injury. ??? Kidney infection, kidney stones, or kidney disease. ??? Stress. ??? A disease of the spine (vertebral disk disease). ??? A lung infection (pneumonia). ??? Fluid around the lungs (pulmonary edema). ??? A skin rash caused by the chickenpox virus (shingles). ??? Tumors that affect the back of the abdomen. ??? Gallbladder disease. Follow these instructions at home: ??? Drink enough fluid to keep your urine pale yellow. ??? Rest as told by your health care provider. ??? Take ommo-hag-mjickhe and prescription medicines only as told by your health care provider. ??? Keep a journal to track what has caused your flank pain and what has made it feel better. ??? Keep all follow-up visits. This is important. Contact a health care provider if: ??? Your pain is not controlled with medicine. ??? You have new symptoms. ??? Your pain gets worse. ??? Your symptoms last longer than 2???3 days. ??? You have trouble urinating or you are urinating very frequently. Get help right away if: ??? You have trouble breathing or you are short of breath. ??? Your abdomen hurts or it is swollen or red. ??? You have nausea or vomiting. ??? You feel faint, or you faint. ??? You have blood in your urine. ??? You have flank pain and a fever. These symptoms may represent a serious problem that is an emergency. Do not wait to see if the symptoms will go away. Get medical help right away. Call your local emergency services (911 in the [place] Do not drive yourself to the hospital. Summary ??? Flank pain is pain that is located on the side of the body between the upper abdomen and the spine. ??? The pain may occur over a short period of time (acute), or it may be long- term or recurring (chronic). It may be mild or severe. ??? Flank pain can be caused by many things. ??? Contact your health care provider if your symptoms get worse or last longer than 2???3 days. This information is not intended to replace advice given to you by your health care provider. Make sure you discuss any questions you have with your health care provider. Document Revised: 05/14/2021 Document Reviewed: 05/14/2021 [employer] Patient Education ?? 2022 [employer]. Follow Up Care 02/23/2024 19:00:10 With:NORBERT MAN APRN Address: [facility] - [address] [phone] When:1 week Comments:As we??discussed??your chest x-ray and laboratory studies today were reassuring.?? I suspect that your pain is musculoskeletal in nature??due to combination of your??coughing with your bronchitis and??your fall. ??You have been given a prescription for Tessalon Perles. ??You may use ywxp-hdx-pywedpg medicine such as Tylenol and ibuprofen for your pain. ??Follow-up closely with your primary care physician. ??Return for worsening in symptoms. Physician Emergency department Note * ELINA Aranda: PERFORM Event Display: ED Note Physician Authored Date: [id number] MICHELE FRY :1990 Age:33 years Sex:Female Visit Date:02/23/2024 Primary Care Physician: NORBERT MAN APRN Basic Information Time Seen: ELINA Aranda / 02/23/2024 19:05 Chief Complaint Pt arrives with complaints of L flank pain that has persisted/worsened for a few days. No pain withBM or urination. Has had cough for 1 month. History Of Present Illness: The patient is a 33-year-old female who presents to the emergency department for evaluation of??left flank pain. ??This started about 5 days ago.?? She states that her symptoms have been persistent and feels like it is getting worse.?? She notes that 4 days ago she was playing floor hockey and collided with a student and??fell onto her knees. ??She does not recall injuring her back. ??She notes that she has had??a cough??for??at least the past month. ??She was seen at a local urgent care??a fewweeks ago and was prescribed prednisone and amoxicillin. ??The patient states that she only took a few days of amoxicillin because she had??diarrhea.?? She??states that she has felt feverish at times.?? She denies any urinary complaints. Review of Systems: Review of systems as per HPI Physical Exam Vitals & Measurements T:??36.7?C ??(Oral)?? HR:??80??(Peripheral)?? RR:??16?? BP:??131/83?? SpO2:??99%?? HT:??162??cm?? WT:??84??kg?? BMI:??32.01?? Pain Score:??6?? O2 Therapy:??Room air?? GENERAL:??No apparent distress, well appearing. SKIN:??Warm, dry, no rash. EYES:??Pupils are equally round, extraocular movements intact. HENT:??Normocephalic, atraumatic, moist mucus membranes. NECK:??Nontender and supple with no nuchal rigidity, no lymphadenopathy, full range of motion. PULMONARY:??Scattered rhonchi CARDIOVASCULAR:??Regular rate and rhythm. ??No appreciated murmurs. ABDOMEN:??Soft, tender to palpation in the left upper quadrant, non-distended, no palpable masses, no rebound or guarding, bowel sounds present. GENITOURINARY:??Slight left costovertebral angle tenderness to palpation. LYMPHATICS:??No edema in lower extremities. MUSCULOSKELETAL:??No midline spine tenderness. Moves all extremities without difficulty. NEUROLOGIC:??Alert and oriented x 3, normal mentation and speech. ??Moves all extremities x 4 without motor or sensory deficit. Medical Decision Making: The patient is a??33-year-old female who presents to??the emergency department for??evaluation of left flank pain??that started??about 4 to 5 days ago. ??She denies any specific injury. ??She??statesthat she has felt feverish at times.?? She does note that she has had a prolonged cough. ??She was seen a couple weeks ago??at a local urgent care and started on antibiotics but she only took 3 days of this due to diarrhea.?? She does not have any urinary complaints. ??She does note??that 4 days ago she was playing floor hockey and collided with a student and fell onto her knees but does not recall any??back pain. ??On exam she does have some slight left-sided CVA tenderness??as well as tenderness in the right upper quadrant.?? Chest x-ray was obtained??which shows no??acute infiltrates.?? Laboratory studies were obtained and are unremarkable.?? I discussed with the patient that the exact etiology of her symptoms were unclear??however I am overall reassured by her workup.?? I do suspect that there is a musculoskeletal??component given her fall and??coughing.?? She??will be placed on Tessalon Perles. ??Encouraged use qsxo-akh-ajvjtgp medicines for??her pain.?? She is advised to follow-up closely??with her primary care physician. ??Return for worsening in symptoms. ??Supervising physician Dr. Flor. Procedure No Qualifying Data Assessment/Plan 1.??Acute left flank pain??R10.9 Ordered: Tessalon Perles 100 mg oral capsule, 200 mg = 2 cap, Oral, TID, PRN as needed for cough, # 30 cap, 0 Refill(s), 03/01/24 21:44:00 EST, Pharmacy: [facility], 162, cm, 02/23/24 19:11:00 EST,Height, 84, kg, 02/23/24 19:13:00 EST, Weight Dosing ?? 2.??Bronchitis??J40 ?? Orders: Discharge Patient, 02/23/24 21:49:00 EST, Home Independently Patient Education Flank Pain, Adult Follow Up With When Contact Information NORBERT MAN APRN Within [address] [phone] Additional Instructions: As we??discussed??your chest x-ray and laboratory studies today were reassuring.?? I suspect that your pain is musculoskeletal in nature??due to combination of your??coughingwith your bronchitis and??your fall. ??You have been given a prescription for Tessalon Perles. ??You may use yrqg-bvh-nkvifpm medicine such as Tylenol and ibuprofen for your pain. ??Follow- up closelywith your primary care physician. ??Return for worsening in symptoms. Medication Reconciliation New Prescription benzonatate (Tessalon Perles 100 mg oral capsule)2 Capsules Oral (given by mouth) 3 times a day as needed as needed for cough. Refills: 0. ?? Unchanged FLUoxetine (FLUoxetine (Eqv-PROzac) 20 mg oral tablet) ?? lisdexamfetamine (Vyvanse) ?? mupirocin topical (mupirocin 2% topical ointment)1 Application Topical (on the skin) 2 times a day for 7 Days. apply to affected area. Refills: 0. ?? triamcinolone topical (triamcinolone 0.1% topical cream)1 Application Topical (on the skin) 2 timesa day for 7 Days. apply to affected area. Refills: 0. ?? valACYclovir Problem List/Past Medical History Ongoing Anxiety and depression Historical No qualifying data Medication Administration Given Tessalon Perles, 200 mg, Oral Allergies No Known Medication Allergies Social History Electronic Cigarette/Vaping Electronic Cigarette Use: Never. Tobacco Never tobacco user Tobacco Use:. Diagnostic Results XR Chest 2 Views 02/23/2024 21:03 EST XR Chest 2 Views ?? 02/23/24 20:09:20 PROCEDURE INFORMATION: Exam: XR Chest Exam date and time: 02/23/2024 8:09 PM Age: 33 years old Clinical indication: Cough ?? TECHNIQUE: Imaging protocol: Radiologic exam of the chest. Views: 2 views. ?? COMPARISON: CT ABD/PELVIS WO CONTRAST 02/19/2019 6:25 PM ?? FINDINGS: Lungs: Unremarkable. No consolidation. Pleural spaces: Unremarkable. No pleural effusion. No pneumothorax. Heart/Mediastinum: Unremarkable. No cardiomegaly. Bones/joints: Unremarkable. ?? IMPRESSION: No acute findings. ? THIS DOCUMENT HAS BEEN ELECTRONICALLY SIGNED BY ELTON HUBER MD on 02/23/2024 09:03 PM ?? Signed By: Elton Huber MD Lab Results CBC and Differential?? LATEST RESULTS?? WBC?? 02/23/24 20:55?? 10.6?? RBC?? 02/23/24 20:55?? 4.67?? Hgb?? 02/23/24 20:55?? 14.4?? Hct?? 02/23/24 20:55?? 42.3?? MCV?? 02/23/24 20:55?? 90.6?? MCH?? 02/23/24 20:55?? 30.9?? MCHC?? 02/23/24 20:55?? 34.1?? RDW-CV?? 02/23/24 20:55?? 13.4?? Platelets?? 02/23/24 20:55?? 304?? MPV?? 02/23/24 20:55?? 8.4?? Neutro Auto?? 02/23/24 20:55?? 65.6?? Lymph Auto?? 02/23/24 20:55?? 25.2?? [place] Auto?? 02/23/24 20:55?? 7.5?? Eos, Auto?? 02/23/24 20:55?? 1.30?? Basophil Auto?? 02/23/24 20:55?? 0.4?? Neutro Absolute?? 02/23/24 20:55?? 7.0 ??High?? Lymph Absolute?? 02/23/24 20:55?? 2.7?? [place] Absolute?? 02/23/24 20:55?? 0.8 ??High?? Eos Absolute?? 02/23/24 20:55?? 0.1?? Baso Absolute?? 02/23/24 20:55?? 0.0?? Slide Review?? 02/23/24 20:55?? Not Indicated? Routine Chemistry?? LATEST RESULTS?? Sodium Level?? 02/23/24 20:55?? 139?? Potassium Level?? 02/23/24 20:55?? 3.4 ??Low?? Chloride Level?? 02/23/24 20:55?? 105?? CO2?? 02/23/24 20:55?? 27?? Alk Phos?? 02/23/24 20:55?? 55?? AST?? 02/23/24 20:55?? 16?? ALT?? 02/23/24 20:55?? 18?? BUN?? 02/23/24 20:55?? 13?? Glucose Level?? 02/23/24 20:55?? 74?? Creatinine Level?? 02/23/24 20:55?? 1.00?? BUN/Creat Ratio?? 02/23/24 20:55?? 13.0?? eGFR CKD-EPI?? 02/23/24 20:55?? 77?? Calcium Level?? 02/23/24 20:55?? 9.0?? Protein Total?? 02/23/24 20:55?? 6.9?? Albumin Level?? 02/23/24 20:55?? 4.1?? Globulin?? 02/23/24 20:55?? 2.8?? A/G Ratio?? 02/23/24 20:55?? 1.5?? Bilirubin Total?? 02/23/24 20:55?? 0.4?? Anion Gap?? 02/23/24 20:55?? 7.0?? Lipase Level?? 02/23/24 20:55?? 40?? Osmolality?? 02/23/24 20:55?? 276? Testing?? LATEST RESULTS?? hCG Qual Serum?? 02/23/24 20:55?? Negative? UA Macroscopic?? LATEST RESULTS?? Urine Srce?? 02/23/24 20:55?? Clean Catch?? UA Color?? 02/23/24 20:55?? LIGHT YELL?? UA Appear?? 02/23/24 20:55?? Clear?? UA Glucose?? 02/23/24 20:55?? Negative?? UA Bili?? 02/23/24 20:55?? Negative?? UA Ketones?? 02/23/24 20:55?? Negative?? UA Spec Grav?? 02/23/24 20:55?? 1.010?? UA Blood?? 02/23/24 20:55?? Negative?? UA pH?? 02/23/24 20:55?? 7.00?? UA Protein?? 02/23/24 20:55?? Negative?? UA Urobilinogen?? 02/23/24 20:55?? 0.2?? UA Nitrite?? 02/23/24 20:55?? Negative?? UA Leuk Est?? 02/23/24 20:55?? Negative? Electronically Signed on 02/23/2024 21:51 EST ELINA Aranda Emergency department Discharge instructions * ELINA Aranda: PERFORM Event Display: ED Discharge Information Authored Date: [id number] MICHELE FRY :1990 Age:33 years Sex:Female Visit Date:02/23/2024 Primary Care Physician: NORBERT MAN APRN Discharge Instructions We would like to thank you for allowing us to assist you with your healthcare needs. The following includes patient education materials and information regarding your injury/illness. Diagnosis from Today's Visit Acute left flank pain Bronchitis Discharge Vitals Temperature??(Oral) 98.1 ??F (36.7 ??C) Heart Rate??(Peripheral) 80 Respiratory Rate?? 16 Blood Pressure?? 131/83?? SpO2?? 99% Height?? 63.78 in (162 cm) Weight?? 185.22 lb (84 kg) BMI?? 32.01 Allergies No Known Medication Allergies What to Do Next You Need to Schedule the Following Appointments Follow Up with??NORBERT MAN APRN When:??Within 1 week Why: As we??discussed??your chest x-ray and laboratory studies today were reassuring.?? I suspect that your pain is musculoskeletal in nature??due to combination of your??coughing with your bronchitis and??your fall. ??You have been given a prescription for Tessalon Perles. ??You may use othq-vvn-lkbwuou medicine such as Tylenol and ibuprofen for your pain. ??Follow-up closely with your primary care physician. ??Return for worsening in symptoms. Where: [address] [address] [phone] You were treated today on an emergency basis; it may be tian to contact your primary care provider to notify them of your visit today. You may have been referred to your regular doctor or a specialist, please follow up as instructed. If your condition worsens or you can't get in to see the doctor, contact the Emergency Department. Medications What How Much When Why Instructions Next Dose New benzonatate (Tessalon Perles 100 mg oral capsule) 2 Capsules Oral (given by mouth) 3 times a day as needed for as needed for cough Acute left flank pain Pickup at [facility] Unchanged FLUoxetine (FLUoxetine (Eqv-PROzac) 20 mg oral tablet) Unchanged lisdexamfetamine (Vyvanse) Unchanged mupirocin topical (mupirocin 2% topical ointment) 1 Application Topical (on the skin) 2 times a day Rash Duration: 7 Days apply to affected area ?? Unchanged triamcinolone topical (triamcinolone 0.1% topical cream) 1 Application Topical (on the skin) 2 times a day Rash Duration: 7 Days apply to affected area ?? Unchanged valACYclovir Pharmacy Information [facility]: [address] [place], [place] [id number] [phone] Education Materials Flank Pain, Adult Flank pain is pain that is located on the side of the body between the upper abdomen and the spine.This area is called the flank. The pain may occur over a short period of time (acute), or it may belong-term or recurring (chronic). It may be mild or severe. Flank pain can be caused by many things, including: ? Muscle soreness or injury. ? Kidney infection, kidney stones, or kidney disease. ? Stress. ? A disease of the spine (vertebral disk disease). ? A lung infection (pneumonia). ? Fluid around the lungs (pulmonary edema). ? A skin rash caused by the chickenpox virus (shingles). ? Tumors that affect the back of the abdomen. ? Gallbladder disease. Follow these instructions at home: ? Drink enough fluid to keep your urine pale yellow. ? Rest as told by your health care provider. ? Take dugy-umx-shrwvpp and prescription medicines only as told by your health care provider. ? Keep a journal to track what has caused your flank pain and what has made it feel better. ? Keep all follow-up visits. This is important. Contact a health care provider if: ? Your pain is not controlled with medicine. ? You have new symptoms. ? Your pain gets worse. ? Your symptoms last longer than 2???3 days. ? You have trouble urinating or you are urinating very frequently. Get help right away if: ? You have trouble breathing or you are short of breath. ? Your abdomen hurts or it is swollen or red. ? You have nausea or vomiting. ? You feel faint, or you faint. ? You have blood in your urine. ? You have flank pain and a fever. These symptoms may represent a serious problem that is an emergency. Do not wait to see if the symptoms will go away. Get medical help right away. Call your local emergency services (911 in the [place] Do not drive yourself to the hospital. Summary ? Flank pain is pain that is located on the side of the body between the upper abdomen and the spine. ? The pain may occur over a short period of time (acute), or it may be long-term or recurring (chronic). It may be mild or severe. ? Flank pain can be caused by many things. ? Contact your health care provider if your symptoms get worse or last longer than 2???3 days. This information is not intended to replace advice given to you by your health care provider. Make sure you discuss any questions you have with your health care provider. Document Revised: 05/14/2021 Document Reviewed: 05/14/2021 [employer] Patient Education ?? 2022 [employer] Tests Performed Radiology XR Chest 2 Views 02/23/2024 21:03 EST Lab Test Name Test Result Date/Time WBC 10.6 K/mcL 02/23/2024 20:55 EST RBC 4.67 Million/mcL 02/23/2024 20:55 EST Hgb 14.4 g/dL 02/23/2024 20:55 EST Hct 42.3 % 02/23/2024 20:55 EST MCV 90.6 fL 02/23/2024 20:55 EST MCH 30.9 pg 02/23/2024 20:55 EST MCHC 34.1 g/dL 02/23/2024 20:55 EST RDW-CV 13.4 % 02/23/2024 20:55 EST Platelets 304 K/mcL 02/23/2024 20:55 EST MPV 8.4 fL 02/23/2024 20:55 EST Neutro Auto 65.6 % 02/23/2024 20:55 EST Lymph Auto 25.2 % 02/23/2024 20:55 EST [place] Auto 7.5 % 02/23/2024 20:55 EST Eos, Auto 1.30 % 02/23/2024 20:55 EST Basophil Auto 0.4 % 02/23/2024 20:55 EST Neutro Absolute 7.0 K/mcL 02/23/2024 20:55 EST Lymph Absolute 2.7 K/mcL 02/23/2024 20:55 EST [place] Absolute 0.8 K/mcL 02/23/2024 20:55 EST Eos Absolute 0.1 K/mcL 02/23/2024 20:55 EST Baso Absolute 0.0 K/mcL 02/23/2024 20:55 EST Slide Review Not Indicated 02/23/2024 20:55 EST Sodium Level 139 mmol/L 02/23/2024 20:55 EST Potassium Level 3.4 mmol/L 02/23/2024 20:55 EST Chloride Level 105 mmol/L 02/23/2024 20:55 EST CO2 27 mmol/L 02/23/2024 20:55 EST Alk Phos 55 IntlUnit/L 02/23/2024 20:55 EST AST 16 IntlUnit/L 02/23/2024 20:55 EST ALT 18 IntlUnit/L 02/23/2024 20:55 EST BUN 13 mg/dL 02/23/2024 20:55 EST Glucose Level 74 mg/dL 02/23/2024 20:55 EST Creatinine Level 1.00 mg/dL 02/23/2024 20:55 EST BUN/Creat Ratio 13.0 02/23/2024 20:55 EST eGFR CKD-EPI 77 mL/min/1.73 m2 02/23/2024 20:55 EST Calcium Level 9.0 mg/dL 02/23/2024 20:55 EST Protein Total 6.9 g/dL 02/23/2024 20:55 EST Albumin Level 4.1 g/dL 02/23/2024 20:55 EST Globulin 2.8 g/dL 02/23/2024 20:55 EST A/G Ratio 1.5 g/dL 02/23/2024 20:55 EST Bilirubin Total 0.4 mg/dL 02/23/2024 20:55 EST Anion Gap 7.0 02/23/2024 20:55 EST Lipase Level 40 unit/L 02/23/2024 20:55 EST Osmolality 276 mOsm/kg 02/23/2024 20:55 EST hCG Qual Serum Negative 02/23/2024 20:55 EST Urine Srce Clean Catch 02/23/2024 20:55 EST UA Color LIGHT YELL 02/23/2024 20:55 EST UA Appear CLEAR. 02/23/2024 20:55 EST UA Glucose NEGATIVE 02/23/2024 20:55 EST UA Bili NEGATIVE 02/23/2024 20:55 EST UA Ketones NEGATIVE 02/23/2024 20:55 EST UA Spec Grav 1.010 02/23/2024 20:55 EST UA Blood NEGATIVE 02/23/2024 20:55 EST UA pH 7.00 02/23/2024 20:55 EST UA Protein NEGATIVE 02/23/2024 20:55 EST UA Urobilinogen 0.2 02/23/2024 20:55 EST UA Nitrite NEGATIVE 02/23/2024 20:55 EST UA Leuk Est NEGATIVE 02/23/2024 20:55 EST Patient/Organ Pipe Maker Metal Signature Patient Name:MICHELE FRY I have received this information and my questions have been answered. Patient/Organ Pipe Maker Metal Name: Patient/Organ Pipe Maker Metal Signature: Relationship to Patient: Witness Name/Signature: Date: Electronically Signed on: 02/23/2024 21:47 ESTSigned by:LETI Patient Care team information Care Team Personnel Name: NORBERT MAN APRN Position: No Access Member Role: Primary Care Physician Address: [facility] - [address] Insurance Providers Guarantor name: MICHELE FRY Health Plan Information #: 1 Payer: [employer]TON [employer]UERED[employer] Member Number: [id number] Policy Number: NA Health Plan Information #: 2 Payer: [employer]ER[employer] Member Number: [id number] Policy Number: NA Health Plan Information #: 3 Payer: [facility] Member Number: NA Policy Number: [id number] Health Plan Information #: 4 Payer: [facility] Member Number: [id number] Policy Number: NA Health Plan Information #: 5 Payer: [employer] Member Number: NA Policy Number: NA
--- OUTSIDE RECORDS SUMMARY | 2024-02-26 17:23 | XMS_ITS | Continuity of Care Document ---
Author Organization [facility] Address [address] [place] [id number]- Care Team Providers Care Radio Repairer Name Role Phone NORBERT MAN APRN Primary Care Physician Encounter [facility] NBR [id number] Date(s): 10/27/23 - 10/27/23 [facility] [address] [place] [address]- Encounter Diagnosis Bitten by other mammals, subsequent encounter(Discharge Diagnosis) - 10/27/23 Puncture wound of right upper arm(Discharge Diagnosis) - 10/27/23 Discharge Disposition: Home or Self Care Attending Physician: SHERRI Head Allergies, Adverse Reactions, Alerts No Known Medication Allergies Medications amoxicillin-clavulanate 875 mg-125 mg oral tablet 1 tab, Oral, every 12 hr, # 14 tab, 0 Refill(s), [id number] Start Date: 10/18/23 Stop Date: 10/25/23 Status: Ordered FLUoxetine (Eqv-PROzac) 20 mg oral tablet 0 Refill(s) Start Date: 10/18/23 Status: Ordered mupirocin 2% topical ointment 1 katie, Topical, BID, apply to affected area, # 22 g, 0 Refill(s), [id number] Start Date: 09/28/23 Stop Date: 10/05/23 Status: Ordered triamcinolone 0.1% topical cream 1 katie, Topical, BID, apply to affected area, # 30 g, 0 Refill(s), [facility] Start Date: 09/28/23 Stop Date: 10/05/23 Status: Ordered valACYclovir 0 Refill(s) Start Date: 09/28/23 Status: Ordered Vyvanse 0 Refill(s) Start Date: 09/28/23 Status: Ordered Problem List Condition Confirmation Course Effective Dates Status Health St [facility] Informant Anxiety and depression Confirmed Active Vital Signs Most recent to oldest [Reference Range]: 1 Temperature Oral [35.8-37.3 Deg C] 36.7 Deg C (10/27/23 1:52 PM) Peripheral Pulse Rate [60-100 bpm] 92 bp m (10/27/23 1:52 PM) Respiratory Rate [-24 br/min] 16 br/mi n (10/27/23 1:52 PM) Blood Pressure [90-140/60-90 mmHg] 115/8 4mmHg (10/27/23 1:52 PM) Mean Arterial Pressure, Cuff [65-140 mmH g] 94 mmHg (10/27/23 1:52 PM) Social History Social History Type Response Tobacco Never tobacco user T obacco Use:. Sex Patient Care team information Care Team Personnel Name: NORBERT MAN APRN Position: No Access Member Role: Primary Care Physician Address: Address: [facility] - [id number] [place] [address]
--- OUTSIDE RECORDS SUMMARY | 2024-02-26 17:23 | XMS_ITS | Clinical Summary ---
Author Organization [facility] Address [address] [place] [address] Care Team Providers Care Licensed And Certified Midwife Name Role Phone Unknown, Provider MD Primary Care Provider Unava ilable Social History Tobacco Use Types Packs/Day Years Used Date Smoking Tobacco: Never Assessed Interpersonal Safety Answer Date Record ed Physically Hurt Never 10/18/2019 Verbally Threaten Not on file 10/18/2019 Comments Unknown Sex and Gender Information Value Date Recorded Sex Assigned at Not on file Legal Sex Female 22:41 EDT Gender Identity Not on file Sexual Orientation Not on file Plan of Treatment Health Maintenance Due Date Last Done Comments Hepatitis C Screen 1992 Hepatitis B Vaccine (1 of 3 - 19+ 3-dose series) 07/28 COVID-19 Vaccine (2023- season) 2023 Care Teams Licensed And Certified Midwife Relationship Specialty Start Date End Date Unknown, Provider, PCP - General 01/13/19
--- OUTSIDE RECORDS SUMMARY | 2024-02-26 17:23 | XMS_ITS | Continuity of Care Document ---
[facility] Address [address] [place] [address]- Care Team Providers Care Director Center Name Role Phone NORBERT MAN APRN Primary Care Physician [phone] Encounter [facility] NBR [id number] Date(s): 10/22/23 - [facility]22/[facility] [address] [place] [address]- Encounter Diagnosis Puncture wound of right upper arm(Discharge Diagnosis) - 10/22/23 Bitten by other mammals, subsequent encounter(Discharge Diagnosis) - 10/22/23 Discharge Disposition: Home or Self Care Attending Physician: SHERRI Head Allergies, Adverse Reactions, Alerts No Known Medication Allergies Medications amoxicillin-clavulanate 875 mg-125 mg oral tablet 1 tab, Oral, every 12 hr, # 14 tab, 0 Refill(s), [facility]: [facility][id number] Start Date: 10/18/23 Stop Date: 10/25/23 Status: Ordered FLUoxetine (Eqv-PROzac) 20 mg oral tablet 0 Refill(s) Start Date: 10/18/23 Status: Ordered mupirocin 2% topical ointment 1 katie, Topical, BID, apply to affected area, # 22 g, 0 Refill(s), [facility] Start Date: 09/28/23 Stop Date: 10/05/23 Status: Ordered triamcinolone 0.1% topical cream 1 katie, Topical, BID, apply to affected area, # 30 g, 0 Refill(s), [facility] Start Date: 09/28/23 Stop Date: 10/05/23 Status: Ordered valACYclovir 0 Refill(s) Start Date: 09/28/23 Status: Ordered Vyvanse 0 Refill(s) Start Date: 09/28/23 Status: Ordered Problem List Condition Confirmation Course Effective Dates Status Health St at[facility] Informant Anxiety and depression Confirmed Active Vital Signs Most recent to oldest [Reference Range]: 1 Temperature Tympanic [36.6-38.1 Deg C] 3 6.6 Deg C (10/22/23 1:43 PM) Peripheral Pulse Rate [60-100 bpm] 86 bp m (10/22/23 1:43 PM) Blood Pressure [90-140/60-90 mmHg] 119/8 5mmHg (10/22/23 1:43 PM) Mean Arterial Pressure, Cuff [65-140 mmH g] 96 mmHg (10/22/23 1:43 PM) Social History Social History Type Response Tobacco Never tobacco user T obacco Use:. Sex Patient Care team information Care Team Personnel Name: NORBERT MAN APRN Position: No Access Member Role: Primary Care Physician Address: Address: [facility] - [address]
--- OUTSIDE RECORDS SUMMARY | 2024-02-26 17:23 | XMS_ITS | Continuity of Care Document ---
[facility] Address [address] [place] [id number]- Care Team Providers Care Sidewalk Repairer Name Role Phone NORBERT MAN APRN Primary Care Physician Encounter [facility] NBR [phone] Date(s): 10/18/23 - 10/18/23 [facility] [address] [place] [id number]- Encounter Diagnosis Puncture wound of right upper arm(Discharge Diagnosis) - 10/18/23 Bite by animal(Discharge Diagnosis) - 10/18/23 Discharge Disposition: Home or Self Care Attending Physician: SHERRI Head Allergies, Adverse Reactions, Alerts No Known Medication Allergies Medications amoxicillin-clavulanate 875 mg-125 mg oral tablet 1 tab, Oral, every 12 hr, # 14 tab, 0 Refill(s), Pharmacy: [id number] Start Date: 10/18/23 Stop Date: 10/25/23 Status: Ordered FLUoxetine (Eqv-PROzac) 20 mg oral tablet 0 Refill(s) Start Date: 10/18/23 Status: Ordered mupirocin 2% topical ointment 1 katie, Topical, BID, apply to affected area, # 22 g, 0 Refill(s), Pharmacy: [id number] Start Date: 09/28/23 Stop Date: 10/05/23 Status: Ordered triamcinolone 0.1% topical cream 1 katie, Topical, BID, apply to affected area, # 30 g, 0 Refill(s), Pharmacy: [id number] Start Date: 09/28/23 Stop Date: 10/05/23 Status: Ordered valACYclovir 0 Refill(s) Start Date: 09/28/23 Status: Ordered Vyvanse 0 Refill(s) Start Date: 09/28/23 Status: Ordered Problem List Condition Confirmation Course Effective Dates Status Health [facility] Informant Anxiety and depression Confirmed Active Vital Signs Most recent to oldest [Reference Range]: 1 Temperature Oral [35.8-37.3 Deg C] 36.7 Deg C (10/18/23 10:37 AM) Peripheral Pulse Rate [60-100 bpm] 109 b pm *HI* (10/18/23 10:37 AM) Blood Pressure [90-140/60-90 mmHg] 118/8 6mmHg (10/18/23 10:37 AM) Mean Arterial Pressure, Cuff [65-140 mmH g] 97 mmHg (10/18/23 10:37 AM) Social History Social History Type Response Tobacco Never tobacco user T obacco Use:. Sex Hospital Discharge Instructions Patient Education 10/18/2023 11:05:13 Animal Bite, Adult Animal Bite, Adult Animal bites range from mild to serious. An animal bite can result in any of these injuries: ??? A scratch. ??? A deep, open cut. ??? Broken (punctured) or torn skin. ??? A crush injury. ??? A bone injury. A small bite from a house pet is usually less serious than a bite from a stray or wild animal. Cat bites can be more serious because their long, thin teeth can cause deep puncture wounds that close fast, trapping bacteria inside. Stray or wild animals, such as a raccoon, massey, skunk, or bat, are at higher risk of carrying a serious infection called rabies, which they can pass to a human through a bite. A bite from one of theseanimals needs medical care right away and, sometimes, rabies vaccination. What increases the risk? You are more likely to be bitten by an animal if: ??? You are around unfamiliar pets. ??? You disturb an animal when it is eating, sleeping, or caring for its babies. ??? You are outdoors in a place where small, wild animals roam freely. What are the signs or symptoms? Common symptoms of an animal bite include: ??? Pain. ??? Bleeding. ??? Swelling. ??? Bruising. How is this diagnosed? This condition may be diagnosed based on a physical exam and medical history. Your health care provider will examine your wound and ask for details about the animal and how the bite happened. You mayalso have tests, such as: ??? Blood tests to check for infection. ??? X-rays to check for damage to bones or joints. ??? Taking a fluid sample from your wound and checking it for infection (culture test). How is this treated? Treatment depends on the type of animal, where the bite is on your body, and your medical history. Treatment may include: ??? Wound care. This often includes cleaning the wound and rinsing it out (flushing it) with salinesolution, which is made of salt and water. A bandage (dressing) is also often applied. In rare cases, the wound may be closed with stitches (sutures), ivanna, skin glue, or adhesive strips. ??? Antibiotic medicine to prevent or treat infection. This medicine may be prescribed in pill or ointment form. If the bite area gets infected, the medicine may be given through an IV. ??? A tetanus shot to prevent tetanus infection. ??? Rabies treatment to prevent rabies infection, if the animal could have rabies. ??? Surgery. This may be done if a bite gets infected or causes damage that needs to be repaired. Follow these instructions at home: Medicines ??? Take or apply vurh-mkb-qlkuevn and prescription medicines only as told by your health care provider. ??? If you were prescribed an antibiotic medicine, take or apply it as told by your health care provider. Do not stop using the antibiotic even if you start to feel better. Wound care ??? Follow instructions from your health care provider about how to take care of your wound. Make sure you: ??? Wash your hands with soap and water for at least 20 seconds before and after you change your dressing. If soap and water are not available, use hand multi operation machine operator. ??? Change your dressing as told by your health care provider. ??? Leave sutures, skin glue, or adhesive strips in place. These skin closures may need to stay in place for 2 weeks or longer. If adhesive strip edges start to loosen and curl up, you may trim the loose edges. Do not remove adhesive strips completely unless your health care provider tells you to do that. ??? Check your wound every day for signs of infection. Check for: ??? More redness, swelling, or pain. ??? More fluid or blood. ??? Warmth. ??? Pus or a bad smell. General instructions ??? Raise (elevate) the injured area above the level of your heart while you are sitting or lying down, if this is possible. ??? If directed, put ice on the injured area. To do this: ??? Put ice in a plastic bag. ??? Place a towel between your skin and the bag. ??? Leave the ice on for 20 minutes, 2???3 times per day. ??? Remove the ice if your skin turns bright red. This is very important. If you cannot feel pain, heat, or cold, you have a greater risk of damage to the area. ??? Keep all follow-up visits. This is important. Contact a health care provider if: ??? You have more redness, swelling, or pain around your wound. ??? Your wound feels warm to the touch. ??? You have a fever or chills. ??? You have a general feeling of sickness (malaise). ??? You feel nauseous or you vomit. ??? You have pain that does not get better. Get help right away if: ??? You have a red streak that leads away from your wound. ??? You have non-clear fluid or more blood coming from your wound. ??? There is pus or a bad smell coming from your wound. ??? You have trouble moving your injured area. ??? You have numbness or tingling that spreads beyond your wound. Summary ??? Animal bites can range from mild to serious. An animal bite can cause a scratch on the skin, a deep and open cut, torn or punctured skin, a crush injury, or a bone injury. ??? A bite from a stray or wild animal needs medical care right away and, sometimes, rabies vaccination. ??? Your health care provider will examine your wound and ask for details about the animal and how the bite happened. ??? Treatment may include wound care, antibiotic medicine, a tetanus shot, and rabies treatment if the animal could have rabies. This information is not intended to replace advice given to you by your health care provider. Make sure you discuss any questions you have with your health care provider. Document Revised: 03/08/2022 Document Reviewed: 03/08/2022 Immediately Patient Education ?? 2022 [employer]. 10/18/2023 11:05:06 Puncture Wound Puncture Wound A puncture wound is an injury that is caused by a sharp, thin object that penetrates your skin. Usually, a puncture wound does not leave a large opening in your skin, so it may not bleed a lot. However, when you get a puncture wound, dirt or other materials (foreign bodies) can be forced into your wound and can break off inside. This increases the chance of infection, such as tetanus. There are many sharp, pointed objects that can cause puncture wounds, including teeth, nails, splinters of glass, fishhooks, and needles. Treatment may include washing out the wound with a germ-free (sterile) salt- water solution and having the wound opened surgically to remove a foreign object. The wound may be closed with stitches (sutures), skin glue, or adhesive strips and covered with antibiotic ointment and a bandage (dressing).Depending on what caused the injury, you may also need a tetanus shot or a rabies shot. Follow these instructions at home: Medicines ??? Take or apply gaaj-abx-ehkvnrj and prescription medicines only as told by your health care provider. ??? If you were prescribed antibiotics, take or apply them as told by your health care provider. Donot stop using the antibiotic even if you start to feel better. Bathing ??? Keep the dressing clean and dry as told by your health care provider. ??? Do not take baths, swim, or use a hot tub until your health care provider approves. Ask your health care provider if you may take showers. You may only be allowed to take sponge baths. Wound care ??? Follow instructions from your health care provider about how to take care of your wound. Make sure you: ??? Wash your hands with soap and water for at least 20 seconds before and after you change your dressing. If soap and water are not available, use hand multi operation machine operator. ??? Change your dressing as told by your health care provider. ??? Leave sutures, skin glue, or adhesive strips in place. These skin closures may need to stay in place for 2 weeks or longer. If adhesive strip edges start to loosen and curl up, you may trim the loose edges. Do not remove adhesive strips completely unless your health care provider tells you to do that. ??? Clean the wound as told by your health care provider. ??? Do not scratch or pick at the wound. ??? Check your wound every day for signs of infection. Check for: ??? Redness, swelling, or pain. ??? Fluid or blood. ??? Warmth. ??? Pus or a bad smell. General instructions ??? Raise (elevate) the injured area above the level of your heart while you are sitting or lying down. ??? If your puncture wound is in your foot, ask your health care provider if you need to avoid putting weight on your foot and for how long. Do not use the injured limb to support your body weight until your health care provider says that you can. Use crutches as told by your health care provider. ??? Keep all follow-up visits. This is important. Contact a health care provider if: ??? You received a tetanus or rabies shot and you have swelling, severe pain, redness, or bleeding at the injection site. ??? You have any of these signs of wound infection: ??? Redness, swelling, or pain. ??? Fluid or blood. ??? Warmth. ??? Pus or a bad smell. ??? Your sutures come out. ??? You notice something coming out of your wound, such as wood or glass. ??? Your pain is not controlled with medicine. ??? You develop numbness around your wound. Get help right away if: ??? You develop severe swelling around your wound. ??? You have a red streak going away from your wound. ??? You develop painful skin lumps. ??? The wound is on your hand or foot and you: ??? Cannot properly move a finger or toe. ??? Notice that your fingers or toes look pale or bluish. Summary ??? A puncture wound is an injury that is caused by a sharp, thin object that penetrates your skin. ??? Treatment may include washing out the wound and having the wound opened surgically to remove a foreign object, ??? The wound may be closed with stitches (sutures), skin glue, or adhesive strips and covered withantibiotic ointment and a bandage (dressing). ??? Follow instructions from your health care provider about how to take care of your wound. ??? Contact a health care provider if you have redness, swelling, or pain at the site of your wound. This information is not intended to replace advice given to you by your health care provider. Make sure you discuss any questions you have with your health care provider. Document Revised: 04/03/2022 Document Reviewed: 04/03/2022 Immediately Patient Education ?? 2022 [employer] 10/18/2023 11:04:53 Sutured Wound Care Sutured Wound Care Sutures are stitches that can be used to close wounds. Sutures come in different materials. They may break down as your wound heals (absorbable), or they may need to be removed (nonabsorbable). Taking care of your wound properly can help to prevent pain and infection. It can also help your wound heal more quickly. Follow instructions from your health care provider about how to care for your sutured wound. Supplies needed: ??? Soap and water. ??? A clean, dry towel. ??? Wound cleanser or saline, if needed. ??? A clean gauze or bandage (dressing), if needed. ??? Antibiotic ointment, if told by your health care provider. How to care for your sutured wound ??? Keep the wound completely dry for the first 24 hours, or for as long as told by your health care provider. After 24???48 hours, you may shower or bathe as told by your health care provider. Do not soak or submerge the wound in water until the sutures have been removed. ??? After the first 24 hours, clean the wound once a day, or as often as told by your health care provider. Use the following steps: ??? Wash and rinse the wound as told by your health care provider. ??? Pat the wound dry with a clean towel. Do not rub the wound. ??? After cleaning the wound, apply a thin layer of antibiotic ointment as told by your health careprovider. This will prevent infection and keep the dressing from sticking to the wound. ??? Follow instructions from your health care provider about how to change your dressing. Make sureyou: ??? Wash your hands with soap and water for at least 20 seconds before and after you change your dressing. If soap and water are not available, use hand multi operation machine operator. ??? Change your dressing at least once a day, or as often as told by your health care provider. If your dressing gets wet or dirty, change it. ??? Leave sutures and other skin closures, such as adhesive strips or skin glue, in place. These skin closures may need to stay in place for 2 weeks or longer. If adhesive strip edges start to loosenand curl up, you may trim the loose edges. Do not remove adhesive strips completely unless your health care provider tells you to do that. ??? Check your wound every day for signs of infection. Watch for: ??? Redness, swelling, or pain. ??? Fluid or blood. ??? New warmth, a rash, or hardness at the wound site. ??? Pus or a bad smell. ??? Have the sutures removed as told by your health care provider. Follow these instructions at home: Medicines ??? Take or apply dkig-nxm-yeapmgv and prescription medicines only as told by your health care provider. ??? If you were prescribed an antibiotic medicine or ointment, take or apply it as told by your health care provider. Do not stop using the antibiotic even if your condition improves. General instructions ??? To help reduce scarring after your wound heals, cover your wound with clothing or apply sunscreen of at least 30 SPF whenever you are outside. ??? Do not scratch or pick at your wound. ??? Avoid stretching your wound. ??? Raise (elevate) the injured area above the level of your heart while you are sitting or lying down, if possible. ??? Eat a diet that includes protein, vitamin A, and vitamin C to help the wound heal. ??? Drink enough fluid to keep your urine pale yellow. ??? Keep all follow-up visits. This is important. Contact a health care provider if: ??? You received a tetanus shot and you have swelling, severe pain, redness, or bleeding at the injection site. ??? Your wound breaks open or you notice something coming out if it, such as wood or glass. ??? You have any of these signs of infection: ??? Redness, swelling, or pain around your wound. ??? Fluid or blood coming from your wound. ??? New warmth, a rash, or hardness around the wound. ??? A fever. ??? The skin near your wound changes color. ??? You have pain that does not get better with medicine. ??? You develop numbness around the wound. Get help right away if: ??? You develop severe swelling or more pain around your wound. ??? You have pus or a bad smell coming from your wound. ??? You develop painful lumps near your wound or anywhere on your body. ??? You have a red streak spreading out from your wound. ??? The wound is on your hand or foot and: ??? Your fingers or toes look pale or bluish. ??? You cannot properly move a finger or toe. ??? You have numbness that is spreading down your hand, foot, fingers, or toes. Summary ??? Sutures are stitches that can be used to close wounds. ??? Taking care of your wound properly can help to prevent pain and infection. ??? Keep the wound completely dry for the first 24 hours, or for as long as told by your health care provider. After 24???48 hours, you may shower or bathe as told by your health care provider. ??? To help with healing, eat foods that are rich in protein, vitamin A, and vitamin C. This information is not intended to replace advice given to you by your health care provider. Make sure you discuss any questions you have with your health care provider. Document Revised: 07/09/2021 Document Reviewed: 07/09/2021 Immediately Patient Education ?? [employer]. Outpatient Summary note * SHERRI Head: PERFORM Event Display: Ambulatory Patient Summary Authored Date: [id number] LISANDRA MICHELE :1990 Age:33 years Sex:Female Visit Date:10/18/2023 Primary Care Physician: NORBERT MAN APRN Ambulatory Visit Instructions We would like to thank you for allowing us to assist you with your healthcare needs. The following includes patient education materials and information regarding your injury/illness. Your Next Steps Instructions From Your Care Team Be sure to rest and drink plenty of fluids Take Tylenol and ibuprofen as needed for discomfort Keep the wounds covered??for the next 48 hours. ??If the dressing gets wet you may change it. After 48 hours remove the dressing and wash the wound twice daily with soap and water.?? Keep the wound clean and dry Monitor for signs of infection including redness, swelling, drainage, increased pain and/or fever Avoid pushing, pulling or any heavy lifting with the right arm Return to the clinic on 10/22/2023 for reevaluation. ??Sooner for any concerns You have been placed on modified work duties??as noted on??the Worker's Compensation form Medications What How Much When Why Instructions Unchanged FLUoxetine (FLUoxetine (Eqv- PROzac) 20 mg oral tablet) Unchanged lisdexamfetamine (Vyvanse) Unchanged mupirocin topical (mupirocin 2% topical ointment) 1 Application Topical (on the skin) 2 times a day Rash Duration: 7 Days apply to affected area ?? Unchanged triamcinolone topical (triamcinolone 0.1% topical cream) 1 Application Topical (on the skin) 2 times a day Rash Duration: 7 Days apply to affected area ?? Unchanged valACYclovir Your Summary Your Diagnosis Puncture wound of right upper arm Bite by animal Problems Ongoing - Any problem that you are currently receiving treatment for. Anxiety and depression Your Care Team Attending Physician - SHERRI Head Primary Care Physician - NORBERT MAN APRN Discharge Vitals Temperature??(Oral) 98.1 ??F (36.7 ??C) Heart Rate??(Peripheral) 109 Blood Pressure?? 118/86?? SpO2?? 100% Allergies No Known Medication Allergies Education Materials Animal Bite, Adult Animal bites range from mild to serious. An animal bite can result in any of these injuries: ? A scratch. ? A deep, open cut. ? Broken (punctured) or torn skin. ? A crush injury. ? A bone injury. A small bite from a house pet is usually less serious than a bite from a stray or wild animal. Cat bites can be more serious because their long, thin teeth can cause deep puncture wounds that close fast, trapping bacteria inside. Stray or wild animals, such as a raccoon, massey, skunk, or bat, are at higher risk of carrying a serious infection called rabies, which they can pass to a human through a bite. A bite from one of theseanimals needs medical care right away and, sometimes, rabies vaccination. What increases the risk? You are more likely to be bitten by an animal if: ? You are around unfamiliar pets. ? You disturb an animal when it is eating, sleeping, or caring for its babies. ? You are outdoors in a place where small, wild animals roam freely. What are the signs or symptoms? Common symptoms of an animal bite include: ? Pain. ? Bleeding. ? Swelling. ? Bruising. How is this diagnosed? This condition may be diagnosed based on a physical exam and medical history. Your health care provider will examine your wound and ask for details about the animal and how the bite happened. You mayalso have tests, such as: ? Blood tests to check for infection. ? X-rays to check for damage to bones or joints. ? Taking a fluid sample from your wound and checking it for infection (culture test). How is this treated? Treatment depends on the type of animal, where the bite is on your body, and your medical history. Treatment may include: ? Wound care. This often includes cleaning the wound and rinsing it out (flushing it) with saline solution, which is made of salt and water. A bandage (dressing) is also often applied. In rare cases, the wound may be closed with stitches (sutures), ivanna, skin glue, or adhesive strips. ? Antibiotic medicine to prevent or treat infection. This medicine may be prescribed in pill or ointment form. If the bite area gets infected, the medicine may be given through an IV. ? A tetanus shot to prevent tetanus infection. ? Rabies treatment to prevent rabies infection, if the animal could have rabies. ? Surgery. This may be done if a bite gets infected or causes damage that needs to be repaired. Follow these instructions at home: Medicines ? Take or apply ujcc-nwe-cpydige and prescription medicines only as told by your health care provider. ? If you were prescribed an antibiotic medicine, take or apply it as told by your health care provider. Do not stop using the antibiotic even if you start to feel better. Wound care ? Follow instructions from your health care provider about how to take care of your wound. Make sure you: ? Wash your hands with soap and water for at least 20 seconds before and after you change your dressing. If soap and water are not available, use hand multi operation machine operator. ? Change your dressing as told by your health care provider. ? Leave sutures, skin glue, or adhesive strips in place. These skin closures may need to stay in place for 2 weeks or longer. If adhesive strip edges start to loosen and curl up, you may trim the looseedges. Do not remove adhesive strips completely unless your health care provider tells you to do that. ? Check your wound every day for signs of infection. Check for: ? More redness, swelling, or pain. ? More fluid or blood. ? Warmth. ? Pus or a bad smell. General instructions ? Raise (elevate) the injured area above the level of your heart while you are sitting or lying down,if this is possible. ? If directed, put ice on the injured area. To do this: ? Put ice in a plastic bag. ? Place a towel between your skin and the bag. ? Leave the ice on for 20 minutes, 2???3 times per day. ? Remove the ice if your skin turns bright red. This is very important. If you cannot feel pain, heat, or cold, you have a greater risk of damage to the area. ? Keep all follow-up visits. This is important. Contact a health care provider if: ? You have more redness, swelling, or pain around your wound. ? Your wound feels warm to the touch. ? You have a fever or chills. ? You have a general feeling of sickness (malaise). ? You feel nauseous or you vomit. ? You have pain that does not get better. Get help right away if: ? You have a red streak that leads away from your wound. ? You have non-clear fluid or more blood coming from your wound. ? There is pus or a bad smell coming from your wound. ? You have trouble moving your injured area. ? You have numbness or tingling that spreads beyond your wound. Summary ? Animal bites can range from mild to serious. An animal bite can cause a scratch on the skin, a deepand open cut, torn or punctured skin, a crush injury, or a bone injury. ? A bite from a stray or wild animal needs medical care right away and, sometimes, rabies vaccination. ? Your health care provider will examine your wound and ask for details about the animal and how the bite happened. ? Treatment may include wound care, antibiotic medicine, a tetanus shot, and rabies treatment if the animal could have rabies. This information is not intended to replace advice given to you by your health care provider. Make sure you discuss any questions you have with your health care provider. Document Revised: 03/08/2022 Document Reviewed: 03/08/2022 Elsevier Patient Education ?? 2022 [employer] Puncture Wound A puncture wound is an injury that is caused by a sharp, thin object that penetrates your skin. Usually, a puncture wound does not leave a large opening in your skin, so it may not bleed a lot. However, when you get a puncture wound, dirt or other materials (foreign bodies) can be forced into your wound and can break off inside. This increases the chance of infection, such as tetanus. There are many sharp, pointed objects that can cause puncture wounds, including teeth, nails, splinters of glass, fishhooks, and needles. Treatment may include washing out the wound with a germ-free (sterile) salt- water solution and having the wound opened surgically to remove a foreign object. The wound may be closed with stitches (sutures), skin glue, or adhesive strips and covered with antibiotic ointment and a bandage (dressing).Depending on what caused the injury, you may also need a tetanus shot or a rabies shot. Follow these instructions at home: Medicines ? Take or apply qlpc-nlj-hletwgs and prescription medicines only as told by your health care provider. ? If you were prescribed antibiotics, take or apply them as told by your health care provider. Do notstop using the antibiotic even if you start to feel better. Bathing ? Keep the dressing clean and dry as told by your health care provider. ? Do not take baths, swim, or use a hot tub until your health care provider approves. Ask your healthcare provider if you may take showers. You may only be allowed to take sponge baths. Wound care ? Follow instructions from your health care provider about how to take care of your wound. Make sure you: ? Wash your hands with soap and water for at least 20 seconds before and after you change your dressing. If soap and water are not available, use hand multi operation machine operator. ? Change your dressing as told by your health care provider. ? Leave sutures, skin glue, or adhesive strips in place. These skin closures may need to stay in place for 2 weeks or longer. If adhesive strip edges start to loosen and curl up, you may trim the looseedges. Do not remove adhesive strips completely unless your health care provider tells you to do that. ? Clean the wound as told by your health care provider. ? Do not scratch or pick at the wound. ? Check your wound every day for signs of infection. Check for: ? Redness, swelling, or pain. ? Fluid or blood. ? Warmth. ? Pus or a bad smell. General instructions ? Raise (elevate) the injured area above the level of your heart while you are sitting or lying down. ? If your puncture wound is in your foot, ask your health care provider if you need to avoid putting weight on your foot and for how long. Do not use the injured limb to support your body weight until your health care provider says that you can. Use crutches as told by your health care provider. ? Keep all follow-up visits. This is important. Contact a health care provider if: ? You received a tetanus or rabies shot and you have swelling, severe pain, redness, or bleeding at the injection site. ? You have any of these signs of wound infection: ? Redness, swelling, or pain. ? Fluid or blood. ? Warmth. ? Pus or a bad smell. ? Your sutures come out. ? You notice something coming out of your wound, such as wood or glass. ? Your pain is not controlled with medicine. ? You develop numbness around your wound. Get help right away if: ? You develop severe swelling around your wound. ? You have a red streak going away from your wound. ? You develop painful skin lumps. ? The wound is on your hand or foot and you: ? Cannot properly move a finger or toe. ? Notice that your fingers or toes look pale or bluish. Summary ? A puncture wound is an injury that is caused by a sharp, thin object that penetrates your skin. ? Treatment may include washing out the wound and having the wound opened surgically to remove a foreign object, ? The wound may be closed with stitches (sutures), skin glue, or adhesive strips and covered with antibiotic ointment and a bandage (dressing). ? Follow instructions from your health care provider about how to take care of your wound. ? Contact a health care provider if you have redness, swelling, or pain at the site of your wound. This information is not intended to replace advice given to you by your health care provider. Make sure you discuss any questions you have with your health care provider. Document Revised: 04/03/2022 Document Reviewed: 04/03/2022 Elsevier Patient Education ?? 2022 [employer] Sutured Wound Care Sutures are stitches that can be used to close wounds. Sutures come in different materials. They may break down as your wound heals (absorbable), or they may need to be removed (nonabsorbable). Taking care of your wound properly can help to prevent pain and infection. It can also help your wound heal more quickly. Follow instructions from your health care provider about how to care for your sutured wound. Supplies needed: ? Soap and water. ? A clean, dry towel. ? Wound cleanser or saline, if needed. ? A clean gauze or bandage (dressing), if needed. ? Antibiotic ointment, if told by your health care provider. How to care for your sutured wound ? Keep the wound completely dry for the first 24 hours, or for as long as told by your health care provider. After 24???48 hours, you may shower or bathe as told by your health care provider. Do not soak or submerge the wound in water until the sutures have been removed. ? After the first 24 hours, clean the wound once a day, or as often as told by your health care provider. Use the following steps: ? Wash and rinse the wound as told by your health care provider. ? Pat the wound dry with a clean towel. Do not rub the wound. ? After cleaning the wound, apply a thin layer of antibiotic ointment as told by your health care provider. This will prevent infection and keep the dressing from sticking to the wound. ? Follow instructions from your health care provider about how to change your dressing. Make sure you: ? Wash your hands with soap and water for at least 20 seconds before and after you change your dressing. If soap and water are not available, use hand multi operation machine operator. ? Change your dressing at least once a day, or as often as told by your health care provider. If yourdressing gets wet or dirty, change it. ? Leave sutures and other skin closures, such as adhesive strips or skin glue, in place. These skin closures may need to stay in place for 2 weeks or longer. If adhesive strip edges start to loosen andcurl up, you may trim the loose edges. Do not remove adhesive strips completely unless your health care provider tells you to do that. ? Check your wound every day for signs of infection. Watch for: ? Redness, swelling, or pain. ? Fluid or blood. ? New warmth, a rash, or hardness at the wound site. ? Pus or a bad smell. ? Have the sutures removed as told by your health care provider. Follow these instructions at home: Medicines ? Take or apply mfec-cvy-rzvetyx and prescription medicines only as told by your health care provider. ? If you were prescribed an antibiotic medicine or ointment, take or apply it as told by your health care provider. Do not stop using the antibiotic even if your condition improves. General instructions ? To help reduce scarring after your wound heals, cover your wound with clothing or apply sunscreen of at least 30 SPF whenever you are outside. ? Do not scratch or pick at your wound. ? Avoid stretching your wound. ? Raise (elevate) the injured area above the level of your heart while you are sitting or lying down,if possible. ? Eat a diet that includes protein, vitamin A, and vitamin C to help the wound heal. ? Drink enough fluid to keep your urine pale yellow. ? Keep all follow-up visits. This is important. Contact a health care provider if: ? You received a tetanus shot and you have swelling, severe pain, redness, or bleeding at the injection site. ? Your wound breaks open or you notice something coming out if it, such as wood or glass. ? You have any of these signs of infection: ? Redness, swelling, or pain around your wound. ? Fluid or blood coming from your wound. ? New warmth, a rash, or hardness around the wound. ? A fever. ? The skin near your wound changes color. ? You have pain that does not get better with medicine. ? You develop numbness around the wound. Get help right away if: ? You develop severe swelling or more pain around your wound. ? You have pus or a bad smell coming from your wound. ? You develop painful lumps near your wound or anywhere on your body. ? You have a red streak spreading out from your wound. ? The wound is on your hand or foot and: ? Your fingers or toes look pale or bluish. ? You cannot properly move a finger or toe. ? You have numbness that is spreading down your hand, foot, fingers, or toes. Summary ? Sutures are stitches that can be used to close wounds. ? Taking care of your wound properly can help to prevent pain and infection. ? Keep the wound completely dry for the first 24 hours, or for as long as told by your health care provider. After 24???48 hours, you may shower or bathe as told by your health care provider. ? To help with healing, eat foods that are rich in protein, vitamin A, and vitamin C. This information is not intended to replace advice given to you by your health care provider. Make sure you discuss any questions you have with your health care provider. Document Revised: 07/09/2021 Document Reviewed: 07/09/2021 Elsevier Patient Education ?? 2022 [employer] Electronically Signed on: 10/18/2023 12:12 EDTSigned by:FLORECITA Patient Care team information Care Team Personnel Name: NORBERT MAN APRN Position: No Access Member Role: Primary Care Physician Address: Address: [facility] - [address]
--- OUTSIDE RECORDS SUMMARY | 2024-02-26 17:23 | XMS_ITS | Referral Summary ---
Author Organization [facility] Address [address] [place] [address] Care Team Providers Care Senior Quality Control Inspector Name Role Phone Unknown, Provider MD Primary [...] of Treatment Not on file Care Teams Senior Quality Control Inspector Relationship Specialty Start Date End Date Unknown, Provider, PCP - General 01/13/19
--- OUTSIDE RECORDS SUMMARY | 2024-02-26 17:24 | XMS_ITS | Encounter Summary ---
Author Organization [facility] Address [facility] [place] [address] Care Team Providers Care Mohs Surgeon Name Role Phone Triston Goldstein MD Primary Care Provider [phone] Encounter Details Date Type Department Care Team (Late st Contact Info) Description 02/26/2010 3:30 PM EST Office Visit Pediatric & Adolescent Medicine at [address] [phone] Rut Valdovinos APRN [facility] [place] [address] Social History Tobacco Use Types Packs/Day Years Used Date Smoking Tobacco: Never Assessed Sex and Gender Information Value Date Recorded Sex Assigned at Not on file Gender Identity Not on file Sexual Orientation Not on file documented as of this encounter Plan of Treatment Not on file documented as of this encounter Visit Diagnoses Not on filedocumented in this encounter Care Teams Mohs Surgeon Relationship Specialty Start Date End Date Triston Goldstein MD [address] [place] [id number] PCP - General 02/06/10 01/20/13 documented as of this encounter
--- OUTSIDE RECORDS SUMMARY | 2024-02-26 17:24 | XMS_ITS | Encounter Summary ---
Author Organization [facility] Address [facility] [place] [address] Care Team Providers Care Ripsaw Matcher Name Role Phone Triston Goldstein MD Primary Care Provider [phone] Reason for Referral * Consultation (Routine) - Closed Specialty Diagnoses / Procedures Referred By Contestephania t Referred To Contact Neurology Diagnoses Headache(784.0) Rut Valdovinos APRN [facility] [place] [address] [facility] [address] [place] [phone] Referral ID Status Reason Start Date Expiration Date V isits Requested Visits Authorized [id number] Closed Consult, Test & Treat 01/04/2013 07/03/2013 1 1 Reason for Visit * Reason Comments Headache Encounter Details Date Type Department Care Team (Late st Contact Info) Description 01/04/2013 9:25 AM EDT Office Visit Pediatric & Adolescent Medicine at [address] [phone] Rut Valdovinos APRN [facility] [place] [address] Headache (Primary Dx) Discharge Disposition: [...] young woman Started OCP's to regulate menses ([id number]) and very happy. TSH normal at 0.69. Xray done after fall in September, revealed: Slight scoliosis with concavity to the left. 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 She tried naprosyn for a week and [...] Nose / Throat Normal Oropharynx including tonsils [place] teeth half way through- tonsils out - [...] Narrative Allyson has her own apartment in [facility] she shares with a friend... Stepmom working: works at [employer] ([employer])... Father working: [employer] ([employer])... School: [employer] majoring in Elementary Ed... Smoke exposure: None... Other: parents . Mom is [employer] and lives in [place]. Allyson sees her sometimes. * Catalina Tapia [...] Headache documented in this encounter Care Teams Ripsaw Matcher Relationship Specialty Start Date End Date Triston Goldstein MD [address] [place] [id number] PCP - General 02/06/10 01/20/13 documented as of this encounter
--- OUTSIDE RECORDS SUMMARY | 2024-02-26 17:24 | XMS_ITS | Encounter Summary ---
Author Organization [facility] Address [address] [place] [address] Care Team Providers Care Zipper Measurer Name Role Phone Unknown, Provider Primary Care Provider Unava ilable Encounter Details Date Type Department Care Team (Late st Contact Info) Description 10/16/2023 Lab Requisition [facility] Pathology & Laboratory Medicine - [address] [phone] Outr Resulting Lab, Provider Social History Tobacco [...] Date/Time Associated Diagnosis Comments T3, TOTAL Routine 10/15/2023 13:45 EDT documented in this encounter Results * T3, TOTAL (10/15/2023 13:45 EDT) T3, Total 148 97 - 169 ng/dL 10/16/2023 20:55 EDT [facility] Blood VENOUS BLOOD / Unknown 10/15/2023 13:45 EDT 10/16/2023 20:07 EDT us Provider Outr Resulting Lab CHEMISTRY & BLOOD GA S ORDERABLES Final Result [facility] [address] [place] [address] documented in this encounter Visit Diagnoses Not on filedocumented in this encounter Care Teams Zipper Measurer Relationship Specialty Start Date End Date Unknown, Provider, PCP - General 01/13/19 documented as of this encounter
--- OUTSIDE RECORDS SUMMARY | 2024-02-26 17:24 | XMS_ITS | Encounter Summary ---
Author Organization [facility] Address [facility] [place] [address] Care Team Providers Care Metal Finish Inspector Name Role Phone Devin Mims DNP Primary Care Provider [phone] Encounter Details Date Type Department Care Team (Late st Contact Info) Description 09/21/2019 Ancillary Procedure Radiology Library at [facility] [place] [phone] Devin Mims DNP [facility] [address] [place] [address] Social History Tobacco Use Types Packs/Day Years [...] US Breast (09/21/2019 12:00 AM EDT) Narrative [facility] - 01/06/2020 12:09 PM EDT This exam is auto-finalizing. It's purpose is for storage only. Devin Mims DNP IM FILM LIBRARY OR DERABLES [facility] [place] documented in this encounter Visit Diagnoses Not on filedocumented in this encounter Care Teams Metal Finish Inspector Relationship Specialty Start Date End Date Devin Mims DNP [facility] [address] [place] [address] PCP - General Family Medicine 09/13/19 05/04/23 documented as of this encounter
--- OUTSIDE RECORDS SUMMARY | 2024-02-26 17:24 | XMS_ITS | Encounter Summary ---
Author Organization [facility] Address [facility] [place] [address] Care Team Providers Care International Sourcing Manager Name Role Phone ValdovinosRut barbour Norman HOOKS Primary Care Provider [phone] Encounter Details Date Type Department Care Team ([facility] st Contact Info) Description 03/16/2013 Telephone Neurology at [address] [phone] Swathi Allan MD [address] [facility] [place] [address] Social History Tobacco Use Types Packs/Day Years [...] on filedocumented in this encounter Care Teams International Sourcing Manager Relationship Specialty Start Date End Date Rut Valdovinos, JESSEE PCP - General 03/18/13 03/21/13 documented as of this encounter
--- OUTSIDE RECORDS SUMMARY | 2024-02-26 17:24 | XMS_ITS | Encounter Summary ---
Author Organization [facility] Address [facility] [place] [address] Care Team Providers Care Upholsterer Assembly Line Name Role Phone Devin Mims DNP Primary Care Provider Encounter Details Date Type Department Care Team (Late st Contact Info) Description 12/29/2019 Notes Only [place] [address] Joseph Shankar MD [facility] DR HEMATOLOGY/[place] [address] Social History Tobacco Use Types Packs/Day Years [...] on filedocumented in this encounter Care Teams Upholsterer Assembly Line Relationship Specialty Start Date End Date Devin Mims DNP [facility] [address] [place] [address] PCP - General Family Medicine 09/13/19 05/04/23 documented as of this encounter
--- OUTSIDE RECORDS SUMMARY | 2024-02-26 17:24 | XMS_ITS | Encounter Summary ---
Author Organization [facility] Address [facility] [place] [address] Care Team Providers Care Shipyard Painter Helper Name Role Phone Triston Goldstein MD Primary Care Provider [phone] Encounter Details Date Type Department Care Team (Late st Contact Info) Description 02/19/2010 3:45 PM EST Office Visit Pediatric & Adolescent Medicine at [address] [phone] Triston Goldstein MD [address] [place] [address] Social History Tobacco Use Types Packs/Day Years Used Date Smoking Tobacco: Never Assessed Sex and Gender Information Value Date Recorded Sex Assigned at Not on file Gender Identity Not on file Sexual Orientation Not on file documented as of this encounter Plan of Treatment Not on file documented as of this encounter Visit Diagnoses Not on filedocumented in this encounter Care Teams Shipyard Painter Helper Relationship Specialty Start Date End Date Triston Goldstein MD [address] [place] [address] PCP - General 02/06/10 01/20/13 documented as of this encounter
--- OUTSIDE RECORDS SUMMARY | 2024-02-26 17:24 | XMS_ITS | Encounter Summary ---
Author Organization [facility] Address [address] [place] [address] Care Team Providers Care 4 Year Olds Preschool Teacher Name Role Phone Unknown, Provider Primary Care Provider Unava ilable Encounter Details Date Type Department Care Team (Late st Contact Info) Description 11/12/2022 Lab Requisition [facility] Pathology & Laboratory Medicine - [address] [phone] Outr Resulting Lab, Provider Social History Tobacco [...] 97 - 169 ng/dL 11/12/2022 22:14 EDT [facility] Blood VENOUS BLOOD / Unknown 11/12/2022 11:10 EDT 11/12/2022 21:28 EDT us Provider Outr Resulting Lab CHEMISTRY & BLOOD GA S ORDERABLES Final Result [facility] [address] [place] [address] documented in this encounter Visit Diagnoses Not on filedocumented in this encounter Care Teams 4 Year Olds Preschool Teacher Relationship Specialty Start Date End Date Unknown, Provider, PCP - General 01/13/19 documented as of this encounter
--- OUTSIDE RECORDS SUMMARY | 2024-02-26 17:24 | XMS_ITS | Encounter Summary ---
Author Organization [facility] Address [facility] [place] [address] Care Team Providers Care Nut Tightener Name Role Phone Triston Goldstein MD Primary Care Provider [phone] Reason for Visit * Reason Onset Date Comments Medication Refill 02/22/2013 Encounter Details Date Type Department Care Team (Late st Contact Info) Description 02/22/2013 Refill Pediatric & Adolescent Medicine at [address] [phone] Rut Valdovinos APRN [facility] DR [place] [address] Social History Tobacco Use Types Packs/Day Years [...] January so she should be able to filler picker refills. I pended a script to Care Sunil for you to sign. Has a reminder HPE in August. * Telephone Encounter - YadielKelseyPoppy H - 02/22/2013 11:46 AM EST Pt called she had a change to her insurance and needs to use the mail away Rx. Rx: control [facility] / pt ID [id number] PH: [phone] Pt will be out this week, so if we could call 1 month into R/A [place] this would be helpful documented in this encounter Plan of Treatment Not on file documented as of this encounter Visit Diagnoses Not on filedocumented in this encounter Care Teams Nut Tightener Relationship Specialty Start Date End Date Triston Goldstein MD [address] [place] [address] PCP - General 01/26/13 03/07/13 documented as of this encounter
--- OUTSIDE RECORDS SUMMARY | 2024-02-26 17:24 | XMS_ITS | Encounter Summary ---
Author Organization [facility] [place] [address] Care Team Providers Care Seam Hammerer Name Role Phone Triston Goldstein MD Primary Care Provider [phone] Reason for Visit * Reason Comments Well Child Encounter Details Date Type Department Care Team (Late st Contact Info) Description 09/04/2011 8:00 AM EDT Office Visit Pediatric & Adolescent Medicine at [address] [phone] Rut Valdovinos APRN [facility] [place] [address] Need for vaccination (Primary Dx); DUB (dysfunctional [...] Provider: TANGELA Licona Name: Allyson Santos : [id number] Age: 21 y.o. Accompanied by: alone Interval history/parent concerns: 1. Would like to start the pill to regulate her period. Choosing abstinence, plans to wait until she is . Finds having unpredictable periods a pain. [id number]. LMP 08/30/11. Non smoker, No migraines. Healthy. Patient Active Problem List Diagnoses ??? Healthcare maintenance Generally healthy- bright/sensible young woman Started HPV and received Menactra August 2010 (heading off to [employer] to study early childhood worker education). Started OCP's to regulate menses ([id number]). 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[employer] [place] No constipation or diarrhea, stooling nmlly Dental Care Seen by dentist Substances Denies all (I do not see any point in it) Sexual Activity Choosing abstinence, likes boys, plans to wait until Periods (female) [id number] School function Doing well at [employer] studying early childhood worker education and geography Social function No problems- [...] x No dysuria, kidney or bladder problems 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 Mom is Porsche and lives in [place]. Allyson sees her sometimes. PHYSICAL EXAM BP 120/64 Ht 162.6 cm (5' 4) Wt 60.328 kg (133 lb) BMI 22.83 kg/m2 61.43% of growth percentile based on cuovzk-gmq-glv. 45.91% of growth percentile based on rnzthky-yfh-ptq. Hearing Screening 125Hz 250Hz 500Hz 1000Hz 2000Hz [...] facility documented in this encounter Care Teams Seam Hammerer Relationship Specialty Start Date End Date Triston Goldstein MD [address] [place] [address] PCP - General 02/06/10 01/20/13 documented as of this encounter
--- OUTSIDE RECORDS SUMMARY | 2024-02-26 17:24 | XMS_ITS | Encounter Summary ---
Author Organization [facility] Address [facility] [place] [address] Care Team Providers Care Tyre Fitter Name Role Phone Triston Goldstein MD Primary Care Provider [phone] Reason for Visit * Reason Onset Date Comments Headache 12/07/2012 Encounter Details Date Type Department Care Team (Late st Contact Info) Description 12/07/2012 Telephone Pediatric & Adolescent Medicine at [address] [phone] Michelle Raphael RN Headache Social [...] Any suggestions for Allyson? She is at [facility] and I did give her the [facility] phone #. She is not able to [...] on filedocumented in this encounter Care Teams Tyre Fitter Relationship Specialty Start Date End Date Triston Goldstein MD [address] [place] [address] PCP - General 02/06/10 01/20/13 documented as of this encounter
--- OUTSIDE RECORDS SUMMARY | 2024-02-26 17:24 | XMS_ITS | Encounter Summary ---
Author Organization [facility] Address [facility] [place] [address] Care Team Providers Care Timber Treating Tank Operator Name Role Phone Triston Goldstein MD Primary Care Provider [phone] Reason for Visit * Reason Comments Medication Refill Encounter Details Date Type Department Care Team (Late st Contact Info) Description 05/05/2014 Refill Pediatric & Adolescent Medicine at [address] [phone] Rut Valdovinos APRN [facility] DR [place] [address] Social History Tobacco Use Types Packs/Day Years [...] on filedocumented in this encounter Care Teams Timber Treating Tank Operator Relationship Specialty Start Date End Date Triston Goldstein MD [address] [place] [address] PCP - General 03/22/13 06/23/16 documented as of this encounter
--- OUTSIDE RECORDS SUMMARY | 2024-02-26 17:24 | XMS_ITS | Encounter Summary ---
Author Organization [facility] Address [facility] [place] [address] Care Team Providers Care Talent Solutions Manager Name Role Phone Triston Goldstein MD Primary Care Provider [phone] Reason for Visit * Reason Comments Medication Refill Encounter Details Date Type Department Care Team ([facility] st Contact Info) Description 08/06/2012 Refill Pediatric & Adolescent Medicine at [address] [phone] Rut Valdovinos APRN [facility] [place] [address] Social History Tobacco Use Types Packs/Day Years [...] on filedocumented in this encounter Care Teams Talent Solutions Manager Relationship Specialty Start Date End Date Triston Goldstein MD [address] [place] [address] PCP - General 02/06/10 01/20/13 documented as of this encounter
--- OUTSIDE RECORDS SUMMARY | 2024-02-26 17:24 | XMS_ITS | Encounter Summary ---
Author Organization [facility] [place] [address] Care Team Providers Care Facility Examiner Name Role Phone Carol Colon APRN Primary Care Provider [phone] Reason for Visit * Consultation (Routine) - Closed Specialty Diagnoses / Procedures Referred By Leslye t Referred To Contact Endocrinology Diagnoses Abnormal results of thyroid function studies Carol Colon APRN [address] [place] [address] [place] [address] [facility] [address] [place] [address] Referral ID Status Reason Start Date Expiration Date Visits Re quested Visits Authorized [id number] Closed 04/09/2023 04/08/2024 1 1 Encounter Details Date Type Department Care Team (Late st Contact Info) Description 05/05/2023 8:30 AM EST Office [place] [address] Festus Vines [facility] [place] [address] Yuli's disease Social History Tobacco Use Types [...] Z00.00 Headache- likely migraine R51 Shaking spells [id number] Allergy No Known Allergies Current Medication Current [...] Encounter Allyson has her own apartment in [facility] she shares with a friend... Stepmom working: works at [employer]... Father working: [employer]... School: [employer] majoring in Elementary Ed... Smoke exposure: None... Other: parents . Mom is Porsche and lives in [place]. Allyson sees her sometimes. Social Determinants of [...] Dr. Porsche Vines PGY5, Endocrinology Fellow Pager: [phone] * Marni Arevalo MD - 05/05/2023 8:30 [...] is 2.5 or less. Marni Arevalo MD Ux Engineerwaste disposal attendant Endocrinology Section [facility] documented in this encounter Miscellaneous Notes * Addendum Note - Marni Arevalo MD - 05/05/2023 8:30 AM ESTAddended by: MARNI AREVALO on: 05/05/2023 02:13 PM Modules accepted: Level of Service documented in this encounter Plan of Treatment Not on file documented as of this encounter Visit Diagnoses Diagnosis Yuli's disease Chronic lymphocytic thyroiditis documented in this encounter Care Teams Facility Examiner Relationship Specialty Start Date End Date Carol Colon, [place] [address] PCP - General Family Medicine 05/05/23 documented as of this encounter
--- OUTSIDE RECORDS SUMMARY | 2024-02-26 17:24 | XMS_ITS | Encounter Summary ---
Author Organization [facility] Address [facility] [place] [address] Care Team Providers Care Field Associate Name Role Phone Triston Goldstein MD Primary Care Provider [phone] Encounter Details Date Type Department Care Team (Late st Contact Info) Description 02/23/2010 1:00 PM EST Office Visit Pediatric & Adolescent Medicine at [address] [phone] Finesse Hawk MD [address] [place] [address] Social History Tobacco Use Types Packs/Day Years Used Date Smoking Tobacco: Never Assessed Sex and Gender Information Value Date Recorded Sex Assigned at Not on file Gender Identity Not on file Sexual Orientation Not on file documented as of this encounter Plan of Treatment Not on file documented as of this encounter Visit Diagnoses Not on filedocumented in this encounter Care Teams Field Associate Relationship Specialty Start Date End Date Triston Goldstein MD [address] [place] [address] PCP - General 02/06/10 01/20/13 documented as of this encounter
--- OUTSIDE RECORDS SUMMARY | 2024-02-26 17:24 | XMS_ITS | Encounter Summary ---
Author Organization [facility] [place] [address] Care Team Providers Care Planisher Name Role Phone Valdovinos Rut Norman HOOKS Primary Care Provider [phone] Reason for Visit * Reason Comments Other Encounter Details Date Type Department Care Team ([facility] Contact Info) Description 01/22/2013 Telephone Neurology at [facility] [address] [place] [phone] Swathi Allan MD [address] [facility] [address] Social History Tobacco Use Types Packs/Day Years [...] on filedocumented in this encounter Care Teams Planisher Relationship Specialty Start Date End Date Rut Valdovinos APRN PCP - General 01/21/13 01/24/13 documented as of this encounter
--- OUTSIDE RECORDS SUMMARY | 2024-02-26 17:24 | XMS_ITS | Encounter Summary ---
Author Organization [facility] Address [facility] [place] [address] Care Team Providers Care Fitness Assistant Name Role Phone Devin Mims DNP Primary Care Provider [phone] Reason for Visit * Reason Comments Genetic Evaluation * Consultation (Routine) - Closed Specialty Diagnoses / Procedures Referred By Leslye t Referred To Contact Hematology and Oncology Diagnoses Family history of malignant neoplasm of breast Mother diagnosed breast cancer in 40's Finesse Powell MD [address] [place] [address] [facility] Hem Onc Office [address] [place] [phone] Referral ID Status Reason Start Date Expiration Date Visits Re quested Visits Authorized [id number] Closed 09/13/2019 09/12/2020 1 1 Encounter Details Date Type Department Care Team (Late st Contact Info) Description 12/31/2019 1:00 PM EDT Office Visit Hematology [place] [address] Shorty Lim V, [facility] Hematology/[place] [address] Family history of breast cancer Social History [...] for 2020 due to current breast pain. Stress Analyst exam annually.No prior colonoscopy. No prior dermatology exam, although notes interest in seeing a floor sweeper in the near future. Family History of Cancer Problem Relation Age of Onset ??? Breast Cancer Mother 46 Maternal ethnic background is . Paternal ethnic background is . There is no known Ashkenazi Baptism Ancestry. Genetic risk assessment We discussed that [...] screening studies in addition to an annual GAME ROOM ATTENDANT exam at this time. Colon cancer screening ?? Baseline colorectal cancer screening starting at age 50 Skin cancer screening ?? Periodic skin exams documented in this encounter Plan of Treatment Not on file documented as of this encounter Visit Diagnoses Diagnosis Family history of breast cancer Family history of malignant neoplasm of breast documented in this encounter Care Teams Fitness Assistant Relationship Specialty Start Date End Date Devin Mims DNP [address] [place] [address] PCP - General Family Medicine 09/13/19 05/04/23 documented as of this encounter
--- OUTSIDE RECORDS SUMMARY | 2024-02-26 17:24 | XMS_ITS | Encounter Summary ---
Author Organization [facility] Address [facility] [place] [address] Care Team Providers Care Android Ui Developer Name Role Phone Triston Goldstein MD Primary Care Provider [phone] Reason for Visit * Reason Comments Medication Refill Encounter Details Date Type Department Care Team ([facility] st Contact Info) Description 10/26/2012 Refill Pediatric & Adolescent Medicine at [address] [phone] Rut Valdovinos APRN [facility] [place] [address] Social History Tobacco Use Types Packs/Day Years [...] on filedocumented in this encounter Care Teams Android Ui Developer Relationship Specialty Start Date End Date Triston Goldstein MD [address] [place] [id number] PCP - General 02/06/10 01/20/13 documented as of this encounter
--- OUTSIDE RECORDS SUMMARY | 2024-02-26 17:24 | XMS_ITS | Encounter Summary ---
Author Organization [facility] [place] [address] Care Team Providers Care Unit Secy Name Role Phone Triston Goldstein MD Primary Care Provider [phone] Reason for Visit * Reason Comments Annual Exam Encounter Details Date Type Department Care Team (Late st Contact Info) Description 08/21/2012 8:00 AM EDT Office Visit Pediatric & Adolescent Medicine at [address] [phone] Rut Valdovinos APRN [facility] [place] [address] Well adult exam (Primary Dx) Social History [...] body speaks to us, counseling center at [facility] Vaccines: IUTD Follow-up: 1 years for next HPE- Allyson likely to transition to [facility] or [facility]. Provider: TANGELA Licona Name: Allyson Santos : [id number] Age: 22 y.o. Accompanied by: alone Interval history / concerns: 1. No concerns today- happy with the pill. Is in first relationship - Moving in with him actually -using the pill and condoms consistently. Patient Active Problem List Diagnoses ??? Healthcare maintenance Generally healthy- bright/sensible young woman Started HPV and received Menactra August 2010 (heading off to [employer] to study dopster education). Started OCP's to regulate menses ([id number]). TSH normal at 0.69. Xray done after [...] bit Physical Activity [employer] gym often [place] No constipation or diarrhea, stooling nmlly Dental Care Seen by dentist Substances Denies Sexual Activity Yes- first relationship using condoms and the pill Periods (female) Regular on the pill - normal TSH last year, as she has DUB when not on the pill School function Doing well in school - transferred to [facility] and very happy there - still studying dopster education Social function No problems- good friends Mood No depression, but does feel stressed often and a bit snappy during her period. Finds working with the [employer] at [employer] exciting and wonderful, but very stressful. She has not tried counseling and does not feel it interferes with her life enough to need medication, but she does recognize that stress is a factor for her. Activities/hobbies Works with the [employer] at [employer]- one of only two non family members [...] x No dysuria, kidney or bladder problems EVALUATION ADVISOR (females) x Denies issues LOADER TECHNICIAN x No headache, head injury/concussion Ortho [...] Narrative Allyson has her own apartment in [facility] she shares with a friend... Stepmom working: works at [employer] Father working: [employer])... School: [employer] majoring in Elementary Ed... Smoke exposure: None... Other: parents . Mom is Porsche and lives in [place]. Allyson sees her sometimes. PHYSICAL EXAM BP 118/68 Ht 161.3 cm (5' 3.5) Wt 63.957 kg (141 lb) BMI 24.59 kg/m2 Normalized funnxi-tne-cda data available only for age 0 to 20 years. Normalized oromiiu-snk-pmz data available only for age 0 to [...] facility documented in this encounter Care Teams Unit Secy Relationship Specialty Start Date End Date Triston Goldstein MD [address] [place] [address] PCP - General 02/06/10 01/20/13 documented as of this encounter
--- OUTSIDE RECORDS SUMMARY | 2024-02-26 17:24 | XMS_ITS | Encounter Summary ---
Author Organization [facility] [place] [address] Care Team Providers Care Hassock Maker Name Role Phone Carol Colon APRN Primary Care Provider [phone] Encounter Details Date Type Department Care Team [...] on filedocumented in this encounter Care Teams Hassock Maker Relationship Specialty Start Date End Date Carol [place] [address] PCP - General Family Medicine 05/05/23 documented as of this encounter
--- OUTSIDE RECORDS SUMMARY | 2024-02-26 17:24 | XMS_ITS | Encounter Summary ---
Author Organization [facility] [place] [address] Care Team Providers Care Reimbursement Consultant Name Role Phone Carol Colon APRN Primary Care Provider [phone] Reason for Referral * Consultation (Routine) - Denied Specialty Diagnoses / Procedures Referred By Contac t Referred To Contact Rheumatology Diagnoses Other fatigue CHRONIC FATIGUE, JOINT STIFFNESS. PT SEEN BY [facility] ENDOCRINOLOGY - POSITIVE THYROGLOBULIN ANTIBODY. ALL OTHER THYROID TESTING NORMAL. ENDOCRINOLOGY - POSITIVE THYROGLOBULIN Carol Rivera APR[place] [address] [place] [address] [facility] Rheumatology [address] [place] [phone] Referral ID Status Reason Start Date Expiration Date V isits Requested Visits Authorized [id number] Denied Consult, Test & Treat PCP Updated and/or Approved 05/26/2023 05/25/2024 6 0 Encounter Details Date Type Department Care Team (Late st Contact Info) Description 05/26/2023 Transcribe Orders eDH Incoming Referrals [phone] Carol Colon APRN [address] [place] [address] Other fatigue Social History Tobacco [...] fatigue documented in this encounter Care Teams Reimbursement Consultant Relationship Specialty Start Date End Date Carol Colon, ESTHETICIAN/SKIN THERAPIST [address] [place] [address] PCP - General Family Medicine 05/05/23 documented as of this encounter
--- OUTSIDE RECORDS SUMMARY | 2024-02-26 17:24 | XMS_ITS | Encounter Summary ---
Author Organization [facility] Address [facility] [place] [address] Care Team Providers Care Ingot Buggy Operator Name Role Phone Triston Goldstein MD Primary Care Provider [phone] Reason for Visit * Reason Comments Rash Encounter Details Date Type Department Care Team ([facility] Contact Info) Description 05/22/2012 8:45 AM EST Office Visit Pediatric & Adolescent Medicine at [address] [phone] Triston Goldstein MD [address] [place] [address] Urticaria- no identified trigger (Primary Dx) Social [...] May use either Benadryl 25 mg or Qcqtnovh15-75 mg Expect improvement in 2-3 days. Call [...] children; Ezra and Shobha.Stepmom working: works at [employer] working: [employer]: [employer] fall [employer], majoring in Elementary Ed and Geography.Smoke exposure: noneOther: parents . Mom is Porsche and lives in [place]. Allyson sees her sometimes. family history includes [...] unspecified documented in this encounter Care Teams Ingot Buggy Operator Relationship Specialty Start Date End Date Triston Goldstein MD [address] [place] [address] PCP - General 02/06/10 01/20/13 documented as of this encounter
--- OUTSIDE RECORDS SUMMARY | 2024-02-26 17:24 | XMS_ITS | Encounter Summary ---
Author Organization [facility] Address [facility] [place] [address] Care Team Providers Care Opal Polisher Name Role Phone Triston Goldstein MD Primary Care Provider [phone] Reason for Visit * Reason Comments Medication Refill Encounter Details Date Type Department Care Team ([facility] st Contact Info) Description 01/24/2013 Refill Pediatric & Adolescent Medicine at [address] [phone] Rut Valdovinos APRN [facility] [place] [address] Social History Tobacco Use Types Packs/Day Years [...] on filedocumented in this encounter Care Teams Opal Polisher Relationship Specialty Start Date End Date Triston Goldstein MD [address] [place] [address] PCP - General 01/25/13 01/25/13 documented as of this encounter
--- OUTSIDE RECORDS SUMMARY | 2024-02-26 17:24 | XMS_ITS | Encounter Summary ---
Author Organization [facility] Address [facility] [place] [address] Care Team Providers Care Magazine Feeder Name Role Phone Devin Mims DNP Primary Care Provider [phone] Reason for Visit * Consultation (Routine) - Specialty Diagnoses / Procedures Referred By Leslye arellano Referred To Contact Hematology and Oncology Diagnoses Nipple discharge Devin Mims DNP [address] [place] [address] [facility] [address] [place] [address] [facility] [address] [place] [address] Referral ID Status Reason Start Date Expiration Date V isits Requested Visits Authorized [id number] Consult, Test & Treat Connection Center PCP Updated and/or Approved 01/04/2020 07/04/2020 6 6 Encounter Details Date Type Department Care Team (Late st Contact Info) Description 01/18/2020 2:00 PM EST Office [place] [phone] Saira June APRN [facility] [place] [address] Breast pain Social History Tobacco Use Types Packs/Day Years Used Date Smoking Tobacco: Never Alcohol Use Standard Drinks/Week Comments No 0 (1 standard drink = 0.6 oz pur e alcohol) Sex and Gender Information Value Date Recorded Sex Assigned at Not on file Gender Identity Not on file Sexual Orientation Not on file documented as of this encounter Progress Notes * Saira June, FIBREGLASS LAY UP WORKER - 01/18/2020 2:00 PM EST Ms. Santos [...] surgery. Imaging performed (right focused ultrasound) at [facility] on 09/21/19 was interpreted as Category 1. [...] not test. 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 She does not smoke. Social etoh. [...] Mastodynia documented in this encounter Care Teams Magazine Feeder Relationship Specialty Start Date End Date Devin Mims DNP [address] [place] [address] PCP - General Family Medicine 09/13/19 05/04/23 documented as of this encounter
--- OUTSIDE RECORDS SUMMARY | 2024-02-26 17:24 | XMS_ITS | Encounter Summary ---
Author Organization [facility] Address [address] [place] [address] Care Team Providers Care Industrial Staff Nurse Name Role Phone Unknown, Provider Primary Care Provider Unava ilable Encounter Details Date Type Department Care Team (Late st Contact Info) Description 06/18/2021 Lab Requisition [facility] Pathology & Laboratory Medicine - [address] [address] Outr Resulting Lab, Provider Social History Tobacco [...] gonorrhoeae Result Negative Negative 06/19/2021 15:07 EDT [facility] Chlamydia trachomatis Result Negative Negative 06/19/2021 15:07 EDT [facility] Swab ENTIRE WALL OF CERVIX / Unknown 06/18/2021 9:30 EDT 06/18/2021 21:44 EDT us Provider Outr Resulting Lab MICROBIOLOGY - GENER AL ORDERABLES Final Result Performing Organization Address [facility]/State/ZIP Co de Phone Number [facility] [address] [place] [address] documented in this encounter Visit Diagnoses Not on filedocumented in this encounter Care Teams Industrial Staff Nurse Relationship Specialty Start Date End Date Unknown, Provider, PCP - General 01/13/19 documented as of this encounter
--- OUTSIDE RECORDS SUMMARY | 2024-02-26 17:24 | XMS_ITS | Encounter Summary ---
Author Organization [facility] Address [facility] [place] [address] Care Team Providers Care Natural Resource Officer Name Role Phone Triston Goldstein MD Primary Care Provider [phone] Reason for Visit * Reason Onset Date Comments Referral 01/07/2013 asked pt to call back Encounter Details Date Type Department Care Team (Late st Contact Info) Description 01/07/2013 Telephone Pediatric & Adolescent Medicine at [address] [phone] Poppy Cotto Referral (asked pt [...] Allyson. She will take the appt in [place]. Called [facility] to cxl Hipolito appt. Faxed all records to [place]. * Telephone Encounter - Poppy Cotto - 01/08/2013 10:24 AM EDT Found earlier appt in [facility]01/12 arrival 9:30 [phone] Fax: [phone] [place] [address] Left msg with this info and asked pt to call me so I know if she can do this and if I needs to cxl the [facility] appt in [place]. * Telephone Encounter [...] to call her back when you [place] [facility] [place] documented in this encounter Plan of Treatment Not on file documented as of this encounter Visit Diagnoses Not on filedocumented in this encounter Care Teams Natural Resource Officer Relationship Specialty Start Date End Date Triston Goldstein MD [address] [place] [address] PCP - General 02/06/10 01/20/13 documented as of this encounter
--- OUTSIDE RECORDS SUMMARY | 2024-02-26 17:24 | XMS_ITS | Encounter Summary ---
Author Organization [facility] Address [facility] [place] [address] Care Team Providers Care Legal File Clerk Name Role Phone Triston Goldstein MD Primary Care Provider [phone] Reason for Visit * Reason Comments Headache Encounter Details Date Type Department Care Team ([facility] Contact Info) Description 01/12/2013 9:45 AM EDT Initial consult Neurology at [address] [phone] Swathi Allan MD [address] [facility] [place] [address] Headache; Episode of shaking; Shaking spells Social [...] encephalitis or meningitis, or any other sizable CHEMICAL PROCESS OPERATOR infections. There is no family history of [...] flexors are downgoing bilaterally. Coordination assessed by [id number] and [id number] is normal bilaterally. There is no evidence [...] the vessels at the level of the [place]. Midline structures are normal. Ventricles, [...] movements documented in this encounter Care Teams Legal File Clerk Relationship Specialty Start Date End Date Triston Goldstein MD [address] [place] [address] PCP - General 02/06/10 01/20/13 documented as of this encounter
--- OUTSIDE RECORDS SUMMARY | 2024-02-26 17:24 | XMS_ITS | Encounter Summary ---
Author Organization [facility] Address [address] [place] [address] Care Team Providers Care Data Center Project Manager Name Role Phone Unknown, Provider Primary Care Provider Unava ilable Encounter Details Date Type Department Care Team (Late st Contact Info) Description 04/18/2023 Lab Requisition [facility] Pathology & Laboratory Medicine - [address] [address] Cathy Townsend [address] [place] [address] [place] [phone] Encounter for other general examination Social History [...] types, PCR Negative Negative 04/30/2023 14:39 EST [facility] Comment:No E6 or E7 mRNA is detected from HPV types 16,18,31,33,35,39,45,51,52,56,58,59,66, and 68 by proof load mechanic mediated amplification. Pap Test CERVIX UTERI STRUCTURE / Unknown 04/17/2023 11:45 EST 04/29/2023 15:19 EST us Cathy Townsend MICROBIOLOGY - GENERAL ORDERABLE S Final Result Performing Organization Address City/State/[facility] Co de Phone Number [facility] [address] [place] [address] * PAP TEST (04/17/2023 11:45 EST) Specimens A. Cervix and/or Endocervix , ThinPrep Imaging System with Manual Evaluation 04/30/2023 14:39 [facility] Specimen Adequacy Satisfactory for Evaluation - transformation zone component present 04/30/2023 14:39 [facility] General Categorization Negative for intraepithelial lesion or malignancy 04/30/2023 14:39 [facility] Attestation . 04/30/2023 14:39 [facility] at 1439 Clinical History SEE BELOW 04/30/19 14:39 [facility] HPV The result for the Human Papillomavirus (HPV) Detection-High Risk Types is Negative. No E6 or E7 mRNA is detected from HPV types 16,18,31,33,35,39 ,45,51,52,56,58,5 9,66, and 68 by proof load mechanic mediated amplification.Jennifer ting was performed on specimen [id number] and was resulted on 04/30/2023 1439 EST by [facility], LAB INSTRUMENT RESULTS IN 04/30/2023 14:39 [facility] Performing Lab [facility] 04/30/2023 14:39 [facility] Scanned Images 04/30/2023 14:39 [facility] Pap Test CERVIX UTERI STRUCTURE / Unknown 04/17/2023 11:45 EST 04/18/2023 13:09 EST us Cathy Townsend PATHOLOGY ORDERABLES Final Resul t [facility] [address] [place] [address] documented in this encounter Visit Diagnoses Diagnosis Encounter for other general examination documented in this encounter Care Teams Data Center Project Manager Relationship Specialty Start Date End Date Unknown, Provider, PCP - General 01/13/19 documented as of this encounter
--- OUTSIDE RECORDS SUMMARY | 2024-02-26 17:24 | XMS_ITS | Encounter Summary ---
Author Organization [facility] Address [facility] [place] [address] Care Team Providers Care Banquet Set Up Person Name Role Phone Triston Goldstein MD Primary Care Provider [phone] Reason for Visit * Reason Comments Medication Refill Encounter Details Date Type Department Care Team ([facility] st Contact Info) Description 07/05/2015 Refill Pediatric & Adolescent Medicine at [address] [phone] Rut Valdovinos APRN [facility] [place] [address] Social History Tobacco Use Types Packs/Day Years [...] on filedocumented in this encounter Care Teams Banquet Set Up Person Relationship Specialty Start Date End Date Triston Goldstein MD [address] [place] [address] PCP - General 03/22/13 06/23/16 documented as of this encounter
--- OUTSIDE RECORDS SUMMARY | 2024-02-26 17:24 | XMS_ITS | Encounter Summary ---
Author Organization [facility] Address [facility] [place] [address] Care Team Providers Care Sample Carrier Name Role Phone Triston Goldstein MD Primary Care Provider [phone] Encounter Details Date Type Department Care Team (Late st Contact Info) Description 09/09/2011 External Results Pediatric & Adolescent Medicine at [address] [phone] Rut Valdovinos APRN [facility] [place] [address] Social History Tobacco Use Types Packs/Day Years [...] EDT) Hemoglobin 12.0 - 16.0 EXTERNAL LAB Thyroid Stimulating Hormone 0.69 EXTERNAL LAB Comment:0.34 - 3.0 uIU/ml Blood specimen (specimen) 09/06/2011 11:19 AM EDT Rut Valdovinos APRN CHEMISTRY ORDERABLES EXTERNAL LAB documented in this encounter Visit Diagnoses Not on filedocumented in this encounter Care Teams Sample Carrier Relationship Specialty Start Date End Date Triston Goldstein MD [address] [place], [place] [id number] PCP - General 02/06/10 01/20/13 documented as of this encounter
--- OUTSIDE RECORDS SUMMARY | 2024-02-26 17:24 | XMS_ITS | Encounter Summary ---
Author Organization [facility] Address [address] [place] [address] Care Team Providers Care Yarn Spooler Name Role Phone Unknown, Provider Primary Care Provider Unava ilable Encounter Details Date Type Department Care Team (Late st Contact Info) Description 10/29/2022 Lab Requisition [facility] Pathology & Laboratory Medicine - [address] [address] Outr Resulting Lab, Provider Social History Tobacco [...] 19 - 88 pg/mL 10/29/2022 23:06 EDT [facility] Blood VENOUS BLOOD / Unknown 10/29/2022 12:48 EDT 10/29/2022 21:32 EDT us Provider Outr Resulting Lab CHEMISTRY & BLOOD GA S ORDERABLES Final Result [facility] [address] [place] [address] documented in this encounter Visit Diagnoses Not on filedocumented in this encounter Care Teams Yarn Spooler Relationship Specialty Start Date End Date Unknown, Provider, PCP - General 01/13/19 documented as of this encounter
--- OUTSIDE RECORDS SUMMARY | 2024-02-26 17:24 | XMS_ITS | Clinical Summary ---
Author Organization [facility] Address [facility] [place] [address] Care Team Providers Care Machine Operator Cane Cutter Name Role Phone Isaiah Carol Diaz APRN Primary Care Provider [phone] Allergies No known active allergies Medications Medication [...] young woman Started OCP's to regulate menses ([id number]) and very happy. TSH normal at 0.69. Xray done after fall in September, revealed: Slight scoliosis with concavity to the left. 08-21-12 NEW IHQ COMPLETED [place] teeth impacted December,- Headaches behind right eye - referred to neurology Borderline elevated BP (01/04/13) - will check weekly for the next month. Resolved Problems Problem Noted Date Diagnosed Date Resolved Date Back injury 10/02/2011 05/22/2012 Overview (10/02/2011): September,- Fell 6 feet onto her back and sustained a contusion - returned to full work duty. Immunizations Name Administration Dates Next Due DT Pediatric 02/02/1993,1992 DTaP 04/19/1999,04/28/1996,03/01/1994 Diphtheria,Pertussis,Tetanus 1992 HIB PRP-T Conjugate (ActHIB, Hiberix, OmniHib) 11/30/1993,02/02/1993,1992,09/27 HPV, Quadrivalent (Gardasil) 09/04/2011,11/01/19 11,08/30/2010 Hepatitis B, Unspecified Formulation 02/02/1993, 1992,1992 Influenza (FluMist) Trivalen t Intranasal, LIVE 12/12/2008 MMR Vaccine LIVE 07/29/1997,11/30/1993 Meningococcal Conjugate 08/30/2010 Polio Oral Trivalent LIVE (Orimune) 07/15,02/01/1994,1992,09/27 Tdap (Adacel, Boostrix) 10/05/2007 Family History Medical History Relation Comments [...] Hepatitis C Screening 2010 Lipid Screening 2010 Tetanus/Diphtheria/Pertussis Vaccines (7 - Td or Tdap) 10/04/2017 10/05/2007, 04/19/1999, 04/28/1996, Additional history exists HPV test 2022 PAP Smear 2022 Covid-19 Vaccine ( - 2023-2 5 season) 2023 Influenza (Flu) vaccine (1 o f 1 - Influenza standard series) 11/16/2023 12/12/2008 Hepatitis B vaccine (0-59 yrs) Completed 1 1992, 1992, 1992 HPV vaccine Completed 09/04/2011, 10/15, 08/30/2010 Care Teams Machine Operator Cane Cutter Relationship Specialty Start Date End Date Carol Colon APRN [facility] [place] [address] PCP - General Family Medicine 05/05/23
--- OUTSIDE RECORDS SUMMARY | 2024-02-26 17:24 | XMS_ITS | Encounter Summary ---
Author Organization [facility] Address [address] [place] [address] Care Team Providers Care Fire Equipment Inspector Helper Name Role Phone Unknown, Provider Primary Care Provider Unava ilable Encounter Details Date Type Department Care Team (Late st Contact Info) Description 03/21/2023 Lab Requisition [facility] Pathology & Laboratory Medicine - [address] [phone] Outr Resulting Lab, Provider Social History Tobacco [...] 12:30 EST) Hold Hold 03/21/2023 18:46 EST [facility] Blood VENOUS BLOOD / Unknown 03/20/2023 12:30 EST 03/21/2023 17:42 EST us Provider Outr Resulting Lab LAB INFO SERVICE AND SUPPORT & PHONE RESULT Final Result Performing Organization Address [facility]/ZIP Co de Phone Number [facility] [address] [place] [address] * HOLD SST (03/20/2023 12:30 EST) Hold Hold 03/21/2023 18:46 EST [facility] Blood VENOUS BLOOD / Unknown 03/20/2023 12:30 EST 03/21/2023 17:42 EST us Provider Outr Resulting Lab LAB INFO SERVICE AND SUPPORT & PHONE RESULT Final Result Performing Organization Address [facility] Co de Phone Number [facility] [address] [place] [address] * THYROPEROXIDASE ANTIBODY (03/20/2023 12:30 EST) Thyroperoxidase Ab 37 <=60 U/mL 2023 19:06 EST [facility] Blood VENOUS BLOOD / Unknown 03/20/2023 12:30 EST 03/21/2023 17:42 EST us Provider Outr Resulting Lab CHEMISTRY & BLOOD GA S ORDERABLES Final Result Performing Organization Address [facility]/ZIP Co de Phone Number [facility] [address] [place] [phone] * (ABNORMAL) ANTI THYROGLOBULIN (03/20/2023 12:30 EST) Anti-Thyroglob ulin 491(H) <=60 U/mL 03/21/2023 19:07 EST [facility] Blood VENOUS BLOOD / Unknown 03/20/2023 12:30 EST 03/21/2023 17:42 EST us Provider Outr Resulting Lab CHEMISTRY & BLOOD GA S ORDERABLES Final Result Performing Organization Address City/[facility]/ZIP Co de Phone Number [facility] [address] [place] [address] * ANTI NUCLEAR AB (JOSTIN), IFA (03/20/2023 12:30 EST) JOSTIN Interpretation Negative Negative 2023 16:00 EST [facility] Comment:No titer performed, JOSTIN Screen is negative. Blood VENOUS BLOOD / Unknown 03/20/2023 12:30 EST 03/21/2023 17:42 EST Narrative [facility] - 03/24/2023 16:00 EST Results were obtained with the INOVA NOVA Lite HEp-2 JOSTIN Kit by indirect immunofluorescence. us Provider Outr Resulting Lab IMMUNOLOGY AND SEROL OGY ORDERABLES Final Result Performing Organization Address [facility]/ZIP Co de Phone Number [facility] [address] [place] [address] documented in this encounter Visit Diagnoses Not on filedocumented in this encounter Care Teams Fire Equipment Inspector Helper Relationship Specialty Start Date End Date Unknown, Provider, PCP - General 01/13/19 documented as of this encounter
--- OUTSIDE RECORDS SUMMARY | 2024-02-26 17:24 | XMS_ITS | Encounter Summary ---
Author Organization [facility] Address [facility] [place] [address] Care Team Providers Care Polls Or Surveys Interviewer Name Role Phone Triston Goldstein MD Primary Care Provider [phone] Encounter Details Date Type Department Care Team (Late st Contact Info) Description 09/26/2011 External Results [address] [phone] Bruce Morales MD [address] [place] [address] Social History Tobacco Use Types Packs/Day Years [...] to the left. Copy of report in [facility], FLOUR INSPECTOR box for review Bruce Morales MD [facility] DX ORDERABLES * *XR generic thoracic spine [...] satisfactory. Copy of report in Rut Valdovinos's, FLOUR INSPECTOR box for review Bruce Morales MD [facility] DX ORDERABLES documented in this encounter Visit Diagnoses Not on filedocumented in this encounter Care Teams Polls Or Surveys Interviewer Relationship Specialty Start Date End Date Triston Goldstein MD [address] [place] [address] PCP - General 02/06/10 01/20/13 documented as of this encounter
--- OUTSIDE RECORDS SUMMARY | 2024-02-26 17:24 | XMS_ITS | Encounter Summary ---
Author Organization [facility] Address [facility] [place] [address] Care Team Providers Care Cleaning Associate Name Role Phone Devin Mims JULIO Primary Care Provider [phone] Encounter Details Date Type Department Care Team (Late st Contact Info) Description 11/08/2022 Ancillary Procedure Radiology Library [place] [address] Carol Colon APRN [address] [place] [address] [place] [address] Social History Tobacco Use Types Packs/Day Years [...] Ultrasound Study (11/08/2022 12:00 AM EDT) Narrative JOSEPHINE - 05/05/2023 10:01 AM EST This exam is auto-finalizing. It's purpose is for storage only. Carol PRITCHARD FILM LIBRARY ORD ERABLES [place], [place] documented in this encounter Visit Diagnoses Not on filedocumented in this encounter Care Teams Cleaning Associate Relationship Specialty Start Date End Date Devin Mims DNP [address] [place] [address] PCP - General Family Medicine 09/13/19 05/04/23 documented as of this encounter
--- OUTSIDE RECORDS SUMMARY | 2024-02-26 17:24 | XMS_ITS | Encounter Summary ---
Author Organization [facility] Address [address] [place] [address] Care Team Providers Care Store Custodian Name Role Phone Unknown, Provider MD Primary Care Provider Unava ilable Encounter Details Date Type Department Care Team (Late st Contact Info) Description 03/21/2023 Lab Requisition [facility] Pathology & Laboratory Medicine - [facility] [address] [place] [address] Outr Resulting Lab, Provider Social History Tobacco [...] 1, PCR Positive(A) Negative 03/22/2023 20:24 EST [facility] Herpes Simplex Virus Molecular Detection 2, PCR Negative Negative 03/22/2023 20:24 EST [facility] Swab LIP STRUCTURE / Unknown 03/20/2023 12:01 EST 03/21/2023 19:24 EST us Provider Outr Resulting Lab MICROBIOLOGY - GENER AL ORDERABLES Final Result [facility] [address] [place] [address] documented in this encounter Visit Diagnoses Not on filedocumented in this encounter Care Teams Store Custodian Relationship Specialty Start Date End Date Unknown, Provider, PCP - General 01/13/19 documented as of this encounter
--- OUTSIDE RECORDS SUMMARY | 2024-02-26 17:24 | XMS_ITS | Encounter Summary ---
Author Organization [facility] Address [address] [place] [address] Care Team Providers Care Financial Investigator Name Role Phone Unknown, Provider Primary Care Provider Unava ilable Encounter Details Date Type Department Care Team (Late st Contact Info) Description 01/13/2019 Results Only [facility] [phone] Heidy Smith MD [address] [place] [address] Social History Tobacco Use Types Packs/Day Years Used Date Smoking Tobacco: Never Assessed Comments Unknown Sex and Gender Information Value [...] when reading/interpret ing unformatted reports. Name: ? MICHELE SANTOS ? Accession #: ? [id number] ? : ? 1990 (Age: 28) ??F [...] (ASCP) 01/14/2019 9:12 AM End of Report [facility] 01/13/2019 22:4 4 EDT 01/13/2019 22:44 EDT us Heidy Smith MD PATHOLOGY ORDERABLES Final Resul t [facility] [address] [place] [address] * PAP TEST- RESULT ONLY (01/13/2019 0:00 EDT) Pathology Report: CYTOPATHOLOGY REPORT Reports generated via electronic interface contain original data; however they are lacking the format of the original report. Caution should be taken when reading/interpreti ng unformatted reports. Name: ? MICHELE SANTOS ? Accession #: ? [id number] : ? 1990 (Age: 28) ??F ?Collect Date: ? 01/13/2019 Location: ? [facility] ? Receive Date: ? 01/14/2019 Provider: ?HEIDY SMITH MD Copy to: ?VINCE HARRELL DNP ? Specimen/Source: ?Pap Test, Cervix, ThinPrep Imaging System with manual evaluation Last Menstrual Period: ? Menstrual/Pregnanc y Status: ? Post ? SPECIMEN ADEQUACY ? Satisfactory for Evaluation - transformation zone component present GENERAL CATEGORIZATION ? Negative for Intraepithelial Lesion or Malignancy ? Document reviewed and electronically signed by: ? CLIFTON Mayes(ASCP) ? Report Date: ??01/15/2019 13:37 End of Report [facility] 01/13/2019 01/14/2019 us Heidy Smith MD PATHOLOGY ORDERABLES Final Resul t [facility] [address] [place] [address] documented in this encounter Visit Diagnoses Not on filedocumented in this encounter Care Teams Financial Investigator Relationship Specialty Start Date End Date Unknown, Provider, PCP - General 01/13/19 documented as of this encounter
--- OUTSIDE RECORDS SUMMARY | 2024-02-26 17:24 | XMS_ITS | Encounter Summary ---
Author Organization [facility] Address [address] [place] [address] Care Team Providers Care Automated Teller Manager Name Role Phone Unknown, Provider Primary Care Provider Unava ilable Encounter Details Date Type Department Care Team (Late st Contact Info) Description 01/13/2019 10:00 EDT Hospital Encounter [address] [address] Unknown, Provider, Social History Tobacco Use Types [...] on filedocumented in this encounter Care Teams Automated Teller Manager Relationship Specialty Start Date End Date Unknown, ProviderMD PCP - General 01/13/19 documented as of this encounter
--- OUTSIDE RECORDS SUMMARY | 2024-02-26 17:24 | XMS_ITS | Encounter Summary ---
Author Organization [facility] Address [facility] [place] [address] Care Team Providers Care Energy Administrator Name Role Phone Rut Valdovinos JESSEE Primary Care Provider [phone] Encounter Details Date Type Department Care Team (Late st Contact Info) Description 01/21/2013 2:30 PM EST Office Visit MR at [address] [phone] Headache; Episode of shaking Social [...] the vessels at the level of the [place]. Midline structures are normal. Ventricles, [...] movements documented in this encounter Care Teams Energy Administrator Relationship Specialty Start Date End Date Rut Valdovinos, MATERIAL INSPECTOR PCP - General 01/21/13 01/24/13 documented as of this encounter
--- OUTSIDE RECORDS SUMMARY | 2024-02-26 17:24 | XMS_ITS | Encounter Summary ---
Author Organization [facility] Address [facility] [place] [address] Care Team Providers Care Database Marketing Analyst Name Role Phone Triston Goldstein MD Primary Care Provider [phone] Reason for Visit * Reason Comments Medication Refill Encounter Details Date Type Department Care Team ([facility] st Contact Info) Description 11/03/2012 Refill Pediatric & Adolescent Medicine at [address] [phone] Rut Valdovinos APRN [facility] [place] [address] Social History Tobacco Use Types Packs/Day Years [...] on filedocumented in this encounter Care Teams Database Marketing Analyst Relationship Specialty Start Date End Date Triston Goldstein MD [address] [place] [address] PCP - General 02/06/10 01/20/13 documented as of this encounter
--- OUTSIDE RECORDS SUMMARY | 2024-02-26 17:24 | XMS_ITS | Encounter Summary ---
Author Organization [facility] Address [facility] [place] [address] Care Team Providers Care Accounting Instructor Name Role Phone Triston Goldstein MD Primary Care Provider Encounter Details Date Type Department Care Team (Late st Contact Info) Description 08/29/2010 Abstract Pediatric & Adolescent Medicine at [address] [phone] Leeanna Ordonez, [facility] Social History Tobacco Use Types Packs/Day [...] on filedocumented in this encounter Care Teams Accounting Instructor Relationship Specialty Start Date End Date rTiston Goldstein MD [address] [place] [address] PCP - General 02/06/10 01/20/13 documented as of this encounter
--- OUTSIDE RECORDS SUMMARY | 2024-02-26 17:24 | XMS_ITS | Encounter Summary ---
Author Organization [facility] Address [facility] [place] [address] Care Team Providers Care Gin Inspector Name Role Phone Triston Goldstein MD Primary Care Provider [phone] Reason for Visit * Reason Onset Date Comments Referral 01/08/2013 Encounter Details Date Type Department Care Team ([facility] Contact Info) Description 01/08/2013 Telephone Neurology at [facility] [address] [place] [phone] Swathi Allan MD [address] [facility] [place] [address] Referral Social History Tobacco Use Types Packs/Day [...] JAY KENT APRN Referring Provider Phone Number- [phone] PCP Name- JAY KENT APRN PCP Phone Number- [phone] Insurance Carrier- [employer] Department being referred [...] on filedocumented in this encounter Care Teams Gin Inspector Relationship Specialty Start Date End Date Triston Goldstein MD [address] [place] [address] PCP - General 02/06/10 01/20/13 documented as of this encounter
--- OUTSIDE RECORDS SUMMARY | 2024-02-26 17:24 | XMS_ITS | Encounter Summary ---
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 Plan: Gave menactra and HPV #1 after VIS reviewed and consent obtained Follow-up: 1-2 years for next HPE, 2nd hpv in 2 months Provider: TANGELA Licona Name: Allyson Santos : [id number] Age: 20 y.o. Accompanied by: Friends Interval [...] Physical Activity Field hockey Active 1 hr/day [place] Normal Dental Care Seen by dentist Brushes/floss teeth/sees dentist Substances Denies all Sexual Activity Likes boys - no boyfriend currently - choosing abstinence Periods (female) Regular - no issues School function Just graduated - will attend [employer] next year (with one of her best friends asa roommate) and study offset printing 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 Planning to attend [employer] fall 2010, majoring in Tool Grinder Operator Ed.Smoke exposure: noneOther: parents . Mom is [employer] and lives in [place]. Allyson sees her sometimes. PHYSICAL EXAM BP 106/80 Ht 1.626 m (5' 4) Wt 56.155 kg (123 lb 12.8 oz) BMI 21.25 kg/m2 49.44% of growth percentile based on odsnrq-dki-fhw. 46.69% of growth percentile based on bhfitsj-nqa-pgc. Hearing screen (25db at [phone]): nml Vision screen: nml Normal Abnormal findings [...] diseases documented in this encounter Care Teams County Assessor Relationship Specialty Start Date End Date Triston Goldstein MD [address] [place] [address] PCP - General 02/06/10 01/20/13 documented as of this encounter
--- OUTSIDE RECORDS SUMMARY | 2024-02-26 17:24 | XMS_ITS | Encounter Summary ---
Author Organization [facility] Address [facility] [place] [address] Care Team Providers Care Optics Engineer Name Role Phone Triston Goldstein MD Primary Care Provider [phone] Reason for Visit * Reason Comments Immunizations HPV #2 Encounter Details Date Type Department Care Team ([facility] st Contact Info) Description 10/31/2010 3:30 PM EDT Office Visit Pediatric & Adolescent Medicine at [address] [phone] Need for HPV vaccination (Primary Dx) Social [...] immunization record given to her. Going to [facility] in the fall. documented in this encounter Plan of Treatment Not on file documented as of this encounter Visit Diagnoses Diagnosis Need for HPV vaccination- Primary Need for prophylactic vaccination and inoculation against other viral diseases documented in this encounter Care Teams Optics Engineer Relationship Specialty Start Date End Date Triston Goldstein MD [address] [place] [address] PCP - General 02/06/10 01/20/13 documented as of this encounter
[2024-02-26 20:32] LABS: HCT 43.3 % (36.0-46.0); HGB 15.1 g/dL (11.2-15.7); MCH 31.9 pg (27.0-33.0); MCHC 34.9 % (32.0-36.0); MCV 92 fL (80-95); MPV 10.6 fL (8.0-11.0); Platelet Count 331 10^3/uL (130-400); RBC 4.73 10^6/uL (3.93-5.22); RDW 12.7 % (11.7-14.6); RDW-SD 42.2 fL; WBC 9.47 10^3/uL (4.4-10.8)
[2024-02-26 20:33] LABS: ESR 26 mm/hr (0-20)
[2024-02-26 20:49] LABS: ALT 28 U/L (14-59); AST 17 U/L (15-37); Albumin 3.8 g/dL (3.4-5.0); Alkaline Phosphatase 76 U/L (46-116); Anion Gap 11.4 mmol/L (3-11); BUN 8 mg/dL (7-18); Bilirubin, Total 0.33 mg/dL (0.2-1.0); C-Reactive Protein 0.86 mg/dL (<or=0.5); CO2 21.6 mmol/L (21.0-32.0); CREATININE 0.9 mg/dL (0.55-1.02); Calcium 8.7 mg/dL (8.5-10.1); Chloride 107 mmol/L (98-107); Estimated GFR 87.65 (mL/min/1.73m2); Glucose 91 mg/dL (74-106); Lipase 39 U/L (<78); Potassium 4.1 mmol/L (3.5-5.1); Sodium 140 mmol/L (136-145); Total Protein 7.3 g/dL (6.4-8.2)
== END 2024-02-26 16:43 | disposition home or self-care (01) ==
LOC: NCHCN 16:42
PROVIDERS: Visit Provider Nurse Practitioner Family
DX: R10.12 Left upper quadrant pain (principal)
CPT/HCPCS: 80053; 83690; 85027; 85652; 86140

== ENCOUNTER 2024-03-03 17:21 | Emergency (ER) | payer BC, SELFPAY ==
[2024-03-03] VITALS (7 sets, daily range): BP systolic 110–134; BP diastolic 76–94; PULSE 68–114; RESP 16–19; TEMP 36.7; O2SAT 95–99
[2024-03-03 18:26] LABS: Bilirubin Negative (Negative); Blood Trace-intact (Negative); Clarity Clear (Clear); Glucose Negative (Negative); Ketones Negative (Negative); Leukocyte Esterase Negative (Negative); Nitrite Negative (Negative); Specific Gravity 1.015 (1.005-1.025); Urobilinogen 0.2 mg/dL (Up to 0.2); pH 7.5 (5-8)
[2024-03-03 18:35] LABS: Bacteria Few HPF (Negative); C & S Indicated? No; Casts Negative LPF (Negative); Crystals Negative HPF (Negative); Epithelial Cells Few HPF (Negative); Mucus Negative (Negative); Other Cells Negative (Negative); RBC 0-2 HPF (0-2); WBC 0-2 HPF (0-5)
[2024-03-03] MEDS: Normal Saline 500 ML IV (18:35)
[2024-03-03] MEDS: ACETAMINOPHEN 650 MG/65 ML BAG 260 MG IVPB (18:35)
[2024-03-03] MEDS: Prochlorperazine 10 MG/2 ML VIAL 5 MG IVP (18:36)
[2024-03-03 18:59] LABS: Mono Screening Negative (Negative)
[2024-03-03 19:02] LABS: HCG Qual (Serum) Negative
[2024-03-03 19:12] LABS: D-Dimer 225 ng/mlFEU (<500)
--- OUTSIDE RECORDS SUMMARY | 2024-03-03 19:14 | XMS_ITS | Clinical Summary ---
Author Organization [facility] Address [facility] [place] [address] Care Team Providers Care Poultry Processing Supervisor Name Role Phone Isaiah Carol Diaz APRN Primary Care Provider [phone] Allergies No known active allergies Medications Medication [...] young woman Started OCP's to regulate menses ([id number]) and very happy. TSH normal at 0.69. Xray done after fall in September, revealed: Slight scoliosis with concavity to the left. 08-21-12 NEW IHQ COMPLETED [place] teeth impacted December,- Headaches behind right eye [...] vaccine Completed 09/04/2011, 10/15, 08/30/2010 Care Teams Poultry Processing Supervisor Relationship Specialty Start Date End Date Carol Colon APRN [facility] [place] [address] PCP - General Family Medicine 05/05/23
--- OUTSIDE RECORDS SUMMARY | 2024-03-03 19:14 | XMS_ITS | Encounter Summary ---
Author Organization [facility] Address [address] [place] [address] Care Team Providers Care Caving Guide Name Role Phone Unknown, Provider Primary Care Provider Unava ilable Encounter Details Date Type Department Care Team (Late st Contact Info) Description 11/12/2022 Lab Requisition [facility] Pathology & Laboratory Medicine - [address] [phone] Outr Resulting Lab, Provider Social History Tobacco [...] 97 - 169 ng/dL 11/12/2022 22:[address] [facility] Blood VENOUS BLOOD / Unknown 11/12/2022 11:10 EDT 11/12/2022 21:28 EDT us Provider Outr Resulting Lab CHEMISTRY & BLOOD GA S ORDERABLES Final Result [facility] [address] [place] [address] documented in this encounter Visit Diagnoses Not on filedocumented in this encounter Care Teams Caving Guide Relationship Specialty Start Date End Date Unknown, Provider, PCP - General 01/13/19 documented as of this encounter
--- OUTSIDE RECORDS SUMMARY | 2024-03-03 19:14 | XMS_ITS | Encounter Summary ---
Author Organization [facility] Address [facility] [place] [address] Care Team Providers Care Hospice Nurse Name Role Phone Triston Goldstein MD Primary Care Provider [phone] Reason for Referral * Consultation (Routine) - Closed Specialty Diagnoses / Procedures Referred By Contestephania t Referred To Contact Neurology Diagnoses Headache(784.0) Rut Valdovinos APRN [facility] [place] [address] [facility] Neurology [address] [place] [phone] Referral ID Status Reason Start Date Expiration Date V isits Requested Visits Authorized [id number] Closed Consult, Test & Treat 01/04/2013 07/03/2013 1 1 Reason for Visit * Reason Comments Headache Encounter Details Date Type Department Care Team (Late st Contact Info) Description 01/04/2013 9:25 AM EDT Office Visit Pediatric & Adolescent Medicine at [address] [phone] Rut Valdovinos APRN [facility] [place] [address] Headache (Primary Dx) Discharge Disposition: [...] young woman Started OCP's to regulate menses ([id number]) and very happy. TSH normal at 0.69. Xray done after fall in September, revealed: Slight scoliosis with concavity to the left. 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 She tried naprosyn for a week and [...] Nose / Throat Normal Oropharynx including tonsils [place] teeth half way through- tonsils out - [...] Narrative Allyson has her own apartment in [place] she shares with a friend... Stepmom working: works at [employer] ([employer])... Father working: [employer])... School: [employer] majoring in Elementary Ed... Smoke exposure: None... Other: parents . Mom is [employer] and lives in [place]. Allyson sees her sometimes. * Catalina Tapia [...] Headache documented in this encounter Care Teams Hospice Nurse Relationship Specialty Start Date End Date Triston Goldstein MD [address] [place] [address] PCP - General 02/06/10 01/20/13 documented as of this encounter
--- OUTSIDE RECORDS SUMMARY | 2024-03-03 19:14 | XMS_ITS | Encounter Summary ---
Author Organization [facility] Address [facility] [place] [address] Care Team Providers Care Production Service Manager Name Role Phone Triston Goldstein MD Primary Care Provider [phone] Reason for Visit * Reason Comments Medication Refill Encounter Details Date Type Department Care Team ([facility] st Contact Info) Description 08/06/2012 Refill Pediatric & Adolescent Medicine at [address] [phone] Rut Valdovinos APRN [facility] [place] [address] Social History Tobacco Use Types Packs/Day Years [...] on filedocumented in this encounter Care Teams Production Service Manager Relationship Specialty Start Date End Date Triston Goldstein MD [address] [place] [address] PCP - General 02/06/10 01/20/13 documented as of this encounter
--- OUTSIDE RECORDS SUMMARY | 2024-03-03 19:14 | XMS_ITS | Encounter Summary ---
Author Organization [facility] Address [facility] [place] [address] Care Team Providers Care Manager Contact Name Role Phone Triston Goldstein MD Primary Care Provider [phone] Encounter Details Date Type Department Care Team (Late st Contact Info) Description 09/26/2011 External Results [address] [phone] Bruce Morales MD [address] [place] [address] Social History Tobacco Use Types Packs/Day Years [...] to the left. Copy of report in [facility], BRINE PROCESS OPERATOR box for review Bruce Morales MD [facility] DX ORDERABLES * *XR generic thoracic spine [...] satisfactory. Copy of report in Rut Valdovinos's, BRINE PROCESS OPERATOR box for review Bruce Morales MD [facility] DX ORDERABLES documented in this encounter Visit Diagnoses Not on filedocumented in this encounter Care Teams Manager Contact Relationship Specialty Start Date End Date Triston Goldstein MD [address] [place] [address] PCP - General 02/06/10 01/20/13 documented as of this encounter
--- OUTSIDE RECORDS SUMMARY | 2024-03-03 19:14 | XMS_ITS | Encounter Summary ---
Author Organization [facility] Address [facility] [place] [address] Care Team Providers Care Wet Machine Cutter Name Role Phone Triston Goldstein MD Primary Care Provider [phone] Encounter Details Date Type Department Care Team (Late st Contact Info) Description 02/26/2010 3:30 PM EST Office Visit Pediatric & Adolescent Medicine at [address] [phone] Rut Valdovinos APRN [facility] [place] [address] Social History Tobacco Use Types Packs/Day Years Used Date Smoking Tobacco: Never Assessed Sex and Gender Information Value Date Recorded Sex Assigned at Not on file Gender Identity Not on file Sexual Orientation Not on file documented as of this encounter Plan of Treatment Not on file documented as of this encounter Visit Diagnoses Not on filedocumented in this encounter Care Teams Wet Machine Cutter Relationship Specialty Start Date End Date Triston Goldstein MD [address] [place] [address] PCP - General 02/06/10 01/20/13 documented as of this encounter
--- OUTSIDE RECORDS SUMMARY | 2024-03-03 19:14 | XMS_ITS | Encounter Summary ---
Author Organization [facility] Address [address] [place] [address] Care Team Providers Care Campaign Developer Name Role Phone Unknown, Provider Primary Care Provider Unava ilable Encounter Details Date Type Department Care Team (Late st Contact Info) Description 04/18/2023 Lab Requisition [facility] Pathology & Laboratory Medicine - [address] [address] aCthy Townsend [address] [place] [address] [place] [phone] Encounter for other general examination Social History [...] types, PCR Negative Negative 04/30/2023 14:39 EST [facility] Comment:No E6 or E7 mRNA is detected from HPV types 16,18,31,33,35,39,45,51,52,56,58,59,66, and 68 by client advisor mediated amplification. Pap Test CERVIX UTERI STRUCTURE / Unknown 04/17/2023 11:45 EST 04/29/2023 15:19 EST us Cathy Townsend MICROBIOLOGY - GENERAL ORDERABLE S Final Result Performing Organization Address City/State/[facility] Co de Phone Number [facility] [address] [place] [address] * PAP TEST (04/17/2023 11:45 EST) Specimens A. Cervix and/or Endocervix , ThinPrep Imaging System with Manual Evaluation 04/30/2023 14:39 [facility] Specimen Adequacy Satisfactory for Evaluation - transformation zone component present 04/30/2023 14:39 [facility] General Categorization Negative for intraepithelial lesion or malignancy 04/30/2023 14:39 [facility] Attestation . 04/30/2023 14:39 [facility] at 1439 Clinical History SEE BELOW 04/30/19 14:39 [facility] HPV The result for the Human Papillomavirus (HPV) Detection-High Risk Types is Negative. No E6 or E7 mRNA is detected from HPV types 16,18,31,33,35,39 ,45,51,52,56,58,5 9,66, and 68 by client advisor mediated amplification.Jennifer ting was performed on specimen [id number] and was resulted on 04/30/2023 1439 EST by [facility], LAB INSTRUMENT RESULTS IN 04/30/2023 14:39 [facility] Performing Lab [facility] 04/30/2023 14:39 [facility] Scanned Images 04/30/2023 14:39 [facility] Pap Test CERVIX UTERI STRUCTURE / Unknown 04/17/2023 11:45 EST 04/18/2023 13:09 EST us Cathy Townsend PATHOLOGY ORDERABLES Final Resul t [facility] [address] [place] [address] documented in this encounter Visit Diagnoses Diagnosis Encounter for other general examination documented in this encounter Care Teams Campaign Developer Relationship Specialty Start Date End Date Unknown, Provider, PCP - General 01/13/19 documented as of this encounter
--- OUTSIDE RECORDS SUMMARY | 2024-03-03 19:14 | XMS_ITS | Encounter Summary ---
Author Organization [facility] Address [facility] [place] [address] Care Team Providers Care Armor Senior Sergeant Name Role Phone Triston Goldstein MD Primary Care Provider Encounter Details Date Type Department Care Team (Late st Contact Info) Description 02/23/2010 1:00 PM EST Office Visit Pediatric & Adolescent Medicine at [address] [phone] Finesse Hawk MD [address] [place] [address] Social History Tobacco Use Types Packs/Day Years Used Date Smoking Tobacco: Never Assessed Sex and Gender Information Value Date Recorded Sex Assigned at Not on file Gender Identity Not on file Sexual Orientation Not on file documented as of this encounter Plan of Treatment Not on file documented as of this encounter Visit Diagnoses Not on filedocumented in this encounter Care Teams Armor Senior Sergeant Relationship Specialty Start Date End Date Triston Goldstein MD [address] [place] [address] PCP - General 02/06/10 01/20/13 documented as of this encounter
--- OUTSIDE RECORDS SUMMARY | 2024-03-03 19:14 | XMS_ITS | Encounter Summary ---
Author Organization [facility] [place] [address] Care Team Providers Care Hand Scudder Name Role Phone Triston Goldstein MD Primary Care Provider [phone] Reason for Visit * Reason Comments Well Child 20 Year Encounter Details Date Type Department Care Team (Late st Contact Info) Description 08/30/2010 12:55 PM EDT Office Visit Pediatric & Adolescent Medicine at [address] [phone] Rut Valdovinos APRN [facility] [place] [address] Routine child health exam; Vaccine for other [...] making excellent choices - Heading off to [employer] 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 Plan: Gave menactra and HPV #1 after VIS reviewed and consent obtained Follow-up: 1-2 years for next HPE, 2nd hpv in 2 months Provider: TANGELA Licona Name: Allyson Santos : [id number] Age: 20 y.o. Accompanied by: Friends Interval [...] Physical Activity Field hockey Active 1 hr/day [place] Normal Dental Care Seen by dentist Brushes/floss teeth/sees dentist Substances Denies all Sexual Activity Likes boys - no boyfriend currently - choosing abstinence Periods (female) Regular - no issues School function Just graduated - will attend [employer] next year (with one of her best friends asa roommate) and study upstream 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 Social function Good friends Friends/significant [...] x No dysuria, kidney or bladder problems AGRONOMY ADVISOR (females) x Denies issues LABEL PRESS OPERATOR x No headache, head injury/concussion Musculo- sketal [...] children; Ezra and Shobha.Stepmom working: works at [employer]Father working: self employedSchool: just graduated from [email or web address] Planning to attend [employer] fall 2010, majoring in Product Inspection Supervisor Ed.Smoke exposure: noneOther: parents . Mom is [employer] and lives in [place]. Allyson sees her sometimes. PHYSICAL EXAM BP 106/80 Ht 1.626 m (5' 4) Wt 56.155 kg (123 lb 12.8 oz) BMI 21.25 kg/m2 49.44% of growth percentile based on hqwwpz-tnl-jxw. 46.69% of growth percentile based on sztilyo-hns-nrj. Hearing screen (25db at [phone]): nml Vision screen: nml Normal Abnormal findings [...] diseases documented in this encounter Care Teams Hand Scudder Relationship Specialty Start Date End Date Triston Goldstein MD [address] [place] [address] PCP - General 02/06/10 01/20/13 documented as of this encounter
--- OUTSIDE RECORDS SUMMARY | 2024-03-03 19:14 | XMS_ITS | Encounter Summary ---
Author Organization [facility] Address [facility] [place] [address] Care Team Providers Care Healthcare Prof Name Role Phone Triston Goldstein MD Primary Care Provider [phone] Reason for Visit * Reason Comments Medication Refill Encounter Details Date Type Department Care Team ([facility] st Contact Info) Description 01/24/2013 Refill Pediatric & Adolescent Medicine at [address] [phone] Rut Valdovinos APRN [facility] [place] [address] Social History Tobacco Use Types Packs/Day Years [...] on filedocumented in this encounter Care Teams Healthcare Prof Relationship Specialty Start Date End Date Triston Goldstein MD [address] [place] [address] PCP - General 01/25/13 01/25/13 documented as of this encounter
--- OUTSIDE RECORDS SUMMARY | 2024-03-03 19:14 | XMS_ITS | Encounter Summary ---
Author Organization [facility] Address [facility] [place] [address] Care Team Providers Care Loom Technician Name Role Phone Triston Goldstein MD Primary Care Provider [phone] Reason for Visit * Reason Comments Medication Refill Encounter Details Date Type Department Care Team ([facility] st Contact Info) Description 10/26/2012 Refill Pediatric & Adolescent Medicine at [address] [phone] Rut Valdovinos APRN [facility] [place] [address] Social History Tobacco Use Types Packs/Day Years [...] on filedocumented in this encounter Care Teams Loom Technician Relationship Specialty Start Date End Date Triston Goldstein MD [address] [place] [id number] PCP - General 02/06/10 01/20/13 documented as of this encounter
--- OUTSIDE RECORDS SUMMARY | 2024-03-03 19:14 | XMS_ITS | Encounter Summary ---
Author Organization [facility] Address [facility] [address] Care Team Providers Care Teen Counselor Name Role Phone ValdovinosRut barbour Norman HOOKS Primary Care Provider [phone] Encounter Details Date Type Department Care Team ([facility] st Contact Info) Description 03/16/2013 Telephone Neurology at [address] [phone] Swathi Allan MD [address] [facility] [place] [address] Social History Tobacco Use Types Packs/Day Years [...] on filedocumented in this encounter Care Teams Teen Counselor Relationship Specialty Start Date End Date Rut Valdovinos, JESSEE PCP - General 03/18/13 03/21/13 documented as of this encounter
--- OUTSIDE RECORDS SUMMARY | 2024-03-03 19:14 | XMS_ITS | Encounter Summary ---
Author Organization [facility] Address [facility] [place] [address] Care Team Providers Care Reliability Technician Name Role Phone Triston Goldstein MD Primary Care Provider [phone] Reason for Visit * Reason Comments Rash Encounter Details Date Type Department Care Team ([facility] Contact Info) Description 05/22/2012 8:45 AM EST Office Visit Pediatric & Adolescent Medicine at [address] [phone] Triston Goldstein MD [address] [place] [address] Urticaria- no identified trigger (Primary Dx) Social [...] May use either Benadryl 25 mg or Whevwncq38-63 mg Expect improvement in 2-3 days. Call [...] children; Ezra and Shobha.Stepmom working: works at [employer] working: [employer]: [employer] fall 2011, majoring in Elementary Ed and Geography.Smoke exposure: noneOther: parents . Mom is Porsche and lives in [place]. Allyson sees her sometimes. family history includes [...] unspecified documented in this encounter Care Teams Reliability Technician Relationship Specialty Start Date End Date Triston Goldstein MD [address] [place] [address] PCP - General 02/06/10 01/20/13 documented as of this encounter
--- OUTSIDE RECORDS SUMMARY | 2024-03-03 19:14 | XMS_ITS | Encounter Summary ---
Author Organization [facility] Address [facility] [place] [address] Care Team Providers Care General Manager Name Role Phone Triston Goldstein MD Primary Care Provider [phone] Reason for Visit * Reason Onset Date Comments Referral 01/08/2013 Encounter Details Date Type Department Care Team ([facility] Contact Info) Description 01/08/2013 Telephone Neurology at [facility] [address] [place] [address] Swathi Allan MD [address] [facility] [address] Referral Social History Tobacco Use Types Packs/Day [...] JAY KENT APRN Referring Provider Phone Number- [phone] PCP Name- JAY KENT APRN PCP Phone Number- [phone] Insurance Carrier- [employer] Department being referred [...] on filedocumented in this encounter Care Teams General Manager Relationship Specialty Start Date End Date Triston Goldstein MD [address] [place] [address] PCP - General 02/06/10 01/20/13 documented as of this encounter
--- OUTSIDE RECORDS SUMMARY | 2024-03-03 19:14 | XMS_ITS | Encounter Summary ---
Author Organization [facility] Address [facility] [address] Care Team Providers Care Control Room Tender Name Role Phone Triston Goldstein MD Primary Care Provider [phone] Reason for Visit * Reason Comments Headache Encounter Details Date Type Department Care Team ([facility] Contact Info) Description 01/12/2013 9:45 AM EDT Initial consult Neurology at [address] [phone] Swathi Allan MD [address] [facility] [place] [address] Headache; Episode of shaking; Shaking spells Social [...] encephalitis or meningitis, or any other sizable SEED COLLECTOR infections. There is no family history of [...] flexors are downgoing bilaterally. Coordination assessed by qopxtd-dd-cojf and hdfd-oo-xval is normal bilaterally. There is no evidence [...] the vessels at the level of the grand [place] of [place]. Midline structures are normal. Ventricles, [...] movements documented in this encounter Care Teams Control Room Tender Relationship Specialty Start Date End Date Triston Goldstein MD [address] [place] [address] PCP - General 02/06/10 01/20/13 documented as of this encounter
--- OUTSIDE RECORDS SUMMARY | 2024-03-03 19:14 | XMS_ITS | Encounter Summary ---
Author Organization [facility] Address [address] [place] [address] Care Team Providers Care Binding Cutter Name Role Phone Unknown, Provider Primary Care Provider Unava ilable Encounter Details Date Type Department Care Team (Late st Contact Info) Description 06/18/2021 Lab Requisition [facility] Pathology & Laboratory Medicine - [address] [address] Outr Resulting Lab, Provider Social History Tobacco [...] gonorrhoeae Result Negative Negative 06/19/2021 15:07 EDT [facility] Chlamydia trachomatis Result Negative Negative 06/19/2021 15:07 EDT [facility] Swab ENTIRE WALL OF CERVIX / Unknown 06/18/2021 9:30 EDT 06/18/2021 21:44 EDT us Provider Outr Resulting Lab MICROBIOLOGY - GENER AL ORDERABLES Final Result Performing Organization Address [facility]/State/ZIP Co de Phone Number [facility] [address] [place] [address] documented in this encounter Visit Diagnoses Not on filedocumented in this encounter Care Teams Binding Cutter Relationship Specialty Start Date End Date Unknown, Provider, PCP - General 01/13/19 documented as of this encounter
--- OUTSIDE RECORDS SUMMARY | 2024-03-03 19:14 | XMS_ITS | Encounter Summary ---
Author Organization [facility] Address [facility] [place] [address] Care Team Providers Care Cooler Operator Name Role Phone Triston Goldstein MD Primary Care Provider [phone] Reason for Visit * Reason Onset Date Comments Referral 01/07/2013 asked pt to call back Encounter Details Date Type Department Care Team (Late st Contact Info) Description 01/07/2013 Telephone Pediatric & Adolescent Medicine at [address] [phone] Poppy Cotto Referral (asked pt [...] Allyson. She will take the appt in [place]. Called [facility] in [facility] to cxl Hipolito appt. Faxed all records to [place]. * Telephone Encounter - Poppy Cotto - 01/08/2013 10:24 AM EDT Found earlier appt in [facility]/12 arrival 9:30 [phone] Fax: [phone] [place] [address] Left msg with this info and asked pt to call me so I know if she can do this and if I needs to cxl the [facility] Leb appt in Mar. * Telephone Encounter [...] to call her back when you called [facility] [place]. [place] documented in this encounter Plan of Treatment Not on file documented as of this encounter Visit Diagnoses Not on filedocumented in this encounter Care Teams Cooler Operator Relationship Specialty Start Date End Date Triston Goldstein MD [address] [place] [address] PCP - General 02/06/10 01/20/13 documented as of this encounter
--- OUTSIDE RECORDS SUMMARY | 2024-03-03 19:14 | XMS_ITS | Encounter Summary ---
Author Organization [facility] [place] [address] Care Team Providers Care Information Systems Security Manager Name Role Phone Triston Goldstein MD Primary Care Provider Reason for Visit * Reason Comments Well Child Encounter Details Date Type Department Care Team (Late st Contact Info) Description 09/04/2011 8:00 AM EDT Office Visit Pediatric & Adolescent Medicine at [address] [phone] Rut Valdovinos APRN [facility] DR [place] [address] Need for vaccination (Primary Dx); DUB (dysfunctional [...] Provider: TANGELA Licona Name: Allyson Santos : [id number] Age: 21 y.o. Accompanied by: alone Interval history/parent concerns: 1. Would like to start the pill to regulate her period. Choosing abstinence, plans to wait until she is . Finds having unpredictable periods a pain. [id number]. LMP 08/30/11. Non smoker, No migraines. Healthy. Patient Active Problem List Diagnoses ??? Healthcare maintenance Generally healthy- bright/sensible young woman Started HPV and received Menactra August 2010 (heading off to [employer] to study consulting sales executive education). Started OCP's to regulate menses ([id number]). 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 studying consulting sales executive education and geography Social function No problems- [...] x No dysuria, kidney or bladder problems SENIOR GENETIC COUNSELOR (females) x Denies issues RAVELER x No headache, head injury/concussion Musculo- sketal [...] children; Ezra and Shobha.Stepmom working: works at [employer] working: [employer]: [employer] fall 2011, majoring in Elementary Ed and Geography.Smoke exposure: noneOther: parents . Mom is Porsche and lives in [place]. Allyson sees her sometimes. PHYSICAL EXAM BP 120/64 Ht 162.6 cm (5' 4) Wt 60.328 kg (133 lb) BMI 22.83 kg/m2 61.43% of growth percentile based on stncgt-vcd-njh. 45.91% of growth percentile based on bcvltea-yer-wqe. Hearing Screening 125Hz 250Hz 500Hz 1000Hz 2000Hz [...] facility documented in this encounter Care Teams Information Systems Security Manager Relationship Specialty Start Date End Date Triston Goldstein MD [address] [place] [address] PCP - General 02/06/10 01/20/13 documented as of this encounter
--- OUTSIDE RECORDS SUMMARY | 2024-03-03 19:14 | XMS_ITS | Encounter Summary ---
Author Organization [facility] [place] [address] Care Team Providers Care Liquor Clerk Name Role Phone Carol Colon APRN Primary Care Provider [phone] Encounter Details Date Type Department Care Team [...] on filedocumented in this encounter Care Teams Liquor Clerk Relationship Specialty Start Date End Date [place] [address] PCP - General Family Medicine 05/05/23 documented as of this encounter
--- OUTSIDE RECORDS SUMMARY | 2024-03-03 19:14 | XMS_ITS | Encounter Summary ---
Author Organization [facility] [place] [address] Care Team Providers Care Sandblaster Supervisor Name Role Phone Carol Colon APRN Primary Care Provider [phone] Reason for Visit * Consultation (Routine) - Closed Specialty Diagnoses / Procedures Referred By Leslye t Referred To Contact Endocrinology Diagnoses Abnormal results of thyroid function studies Carol Colon APRN [address] [place] [address] [place] [address] [facility] Endocrinology [address] [place] [address] Referral ID Status Reason Start Date Expiration Date Visits Re quested Visits Authorized [id number] Closed 04/09/2023 04/08/2024 1 1 Encounter Details Date Type Department Care Team (Late st Contact Info) Description 05/05/2023 8:30 AM EST Office [place] [address] Festus Vines, Yuli's disease Social History Tobacco Use Types [...] Name: Allyson Santos : 1990 PCP: Devin Mmis DNP Reason for referral: Allyson Santos is [...] Z00.00 Headache- likely migraine R51 Shaking spells [id number] Allergy No Known Allergies Current Medication Current [...] Encounter Allyson has her own apartment in [facility] she shares with a friend... Stepmom working: works at [employer])... Father working: [employer]... School: [employer] majoring in Elementary Ed... Smoke exposure: None... Other: parents . Mom is Porsche and lives in [place]. Allyson sees her sometimes. Social Determinants of [...] Dr. Porsche Vines PGY5, Endocrinology Fellow Pager: [phone] * Marni Arevalo MD - 05/05/2023 8:30 [...] is 2.5 or less. Marni Arevalo MD Assistant Clinical Directormolding press operator Endocrinology Section [facility] documented in this encounter Miscellaneous Notes * Addendum Note - Marni Arevalo MD - 05/05/2023 8:30 AM ESTAddended by: MARNI AREVALO on: 05/05/2023 02:13 PM Modules accepted: Level of Service documented in this encounter Plan of Treatment Not on file documented as of this encounter Visit Diagnoses Diagnosis Yuli's disease Chronic lymphocytic thyroiditis documented in this encounter Care Teams Sandblaster Supervisor Relationship Specialty Start Date End Date Carol Colon APRN [facility] [place] [address] PCP - General Family Medicine 05/05/23 documented as of this encounter
--- OUTSIDE RECORDS SUMMARY | 2024-03-03 19:14 | XMS_ITS | Encounter Summary ---
Author Organization [facility] [place] [address] Care Team Providers Care Production Support Analyst Name Role Phone Triston Goldstein MD Primary Care Provider [phone] Reason for Visit * Reason Comments Annual Exam Encounter Details Date Type Department Care Team (Late st Contact Info) Description 08/21/2012 8:00 AM EDT Office Visit Pediatric & Adolescent Medicine at [address] [phone] Rut Valdovinos APRN [facility] [place] [address] Well adult exam (Primary Dx) Social History [...] body speaks to us, counseling center at [employer] Vaccines: IUTD Follow-up: 1 years for next HPE- Allyson likely to transition to [facility] or [facility]. Provider: TANGELA Licona Name: Allyson Santos : [id number] Age: 22 y.o. Accompanied by: alone Interval history / concerns: 1. No concerns today- happy with the pill. Is in first relationship - Moving in with him actually -using the pill and condoms consistently. Patient Active Problem List Diagnoses ??? 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 Started OCP's to regulate menses (43e10-94i6). TSH normal at 0.69. Xray done after [...] bit Physical Activity [employer] often [place] No constipation or diarrhea, stooling nmlly Dental Care Seen by dentist Substances Denies Sexual Activity Yes- first relationship using condoms and the pill Periods (female) Regular on the pill - normal TSH last year, as she has DUB when not on the pill School function Doing well in school - transferred to [facility] and very happy there - still studying quality assurance supervisor education Social function No problems- good friends Mood No depression, but does feel stressed often and a bit snappy during her period. Finds working with the [employer] at [employer] exciting and wonderful, but very stressful. She has not tried counseling and does not feel it interferes with her life enough to need medication, but she does recognize that stress is a factor for her. 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 Stepmom working: works at [employer])... Father working: [employer] ([employer])... School: [employer] majoring in Elementary Ed... Smoke exposure: None... Other: parents . Mom is Porsche and lives in [place]. Allyson sees her sometimes. PHYSICAL EXAM BP 118/68 Ht 161.3 cm (5' 3.5) Wt 63.957 kg (141 lb) BMI 24.59 kg/m2 Normalized pxzfor-uww-ncx data available only for age 0 to 20 years. Normalized mywpucz-rga-dca data available only for age 0 to [...] facility documented in this encounter Care Teams Production Support Analyst Relationship Specialty Start Date End Date Triston Goldstein MD [address] [place] [address] PCP - General 02/06/10 01/20/13 documented as of this encounter
--- OUTSIDE RECORDS SUMMARY | 2024-03-03 19:14 | XMS_ITS | Encounter Summary ---
Author Organization [facility] Address [facility] [place] [address] Care Team Providers Care Payroll Manager Name Role Phone Triston Goldstein MD Primary Care Provider [phone] Reason for Visit * Reason Comments Medication Refill Encounter Details Date Type Department Care Team ([facility] st Contact Info) Description 07/05/2015 Refill Pediatric & Adolescent Medicine at [address] [phone] Rut Valdovinos APRN [facility] [place] [address] Social History Tobacco Use Types Packs/Day Years [...] on filedocumented in this encounter Care Teams Payroll Manager Relationship Specialty Start Date End Date Triston Goldstein MD [address] [place] [address] PCP - General 03/22/13 06/23/16 documented as of this encounter
--- OUTSIDE RECORDS SUMMARY | 2024-03-03 19:14 | XMS_ITS | Encounter Summary ---
Author Organization [facility] Address [facility] [place] [address] Care Team Providers Care Paper Steamer Name Role Phone Devin Mims DNP Primary Care Provider [phone] Encounter Details Date Type Department Care Team (Late st Contact Info) Description 12/29/2019 Notes Only [place]ology [place] [address] Joseph Shankar MD Social History Tobacco Use Types Packs/Day Years [...] on filedocumented in this encounter Care Teams Paper Steamer Relationship Specialty Start Date End Date Devin Mims DNP [address] [place] [address] PCP - General Family Medicine 09/13/19 05/04/23 documented as of this encounter
--- OUTSIDE RECORDS SUMMARY | 2024-03-03 19:14 | XMS_ITS | Encounter Summary ---
Author Organization [facility] Address [facility] [place] [address] Care Team Providers Care Director Of Corporate Strategy Name Role Phone Devin Mims DNP Primary Care Provider [phone] Reason for Visit * Consultation (Routine) - Specialty Diagnoses / Procedures Referred By Leslye arellano Referred To Contact Hematology and Oncology Diagnoses Nipple discharge Devin Mims DNP [address] [place] [address] [facility] [address] [place] [address] [facility] [address] [place] [address] Referral ID Status Reason Start Date Expiration Date V isits Requested Visits Authorized [id number] Consult, Test & Treat Connection Center PCP Updated and/or Approved 01/04/2020 07/04/2020 6 6 Encounter Details Date Type Department Care Team (Late st Contact Info) Description 01/18/2020 2:00 PM EST Office Visit General [place] [phone] Saira June APRN [facility] [place] [address] Breast pain Social History Tobacco Use Types Packs/Day Years Used Date Smoking Tobacco: Never Alcohol Use Standard Drinks/Week Comments No 0 (1 standard drink = 0.6 oz pur e alcohol) Sex and Gender Information Value Date Recorded Sex Assigned at Not on file Gender Identity Not on file Sexual Orientation Not on file documented as of this encounter Progress Notes * Saira June, DEVELOPMENTAL TRAINING COUNSELOR - 01/18/2020 2:00 PM EST Ms. Santos [...] surgery. Imaging performed (right focused ultrasound) at [facility] on 09/21/19 was interpreted as [...] not test. 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 She does not smoke. Social etoh. [...] Mastodynia documented in this encounter Care Teams Director Of Corporate Strategy Relationship Specialty Start Date End Date Devin Mims DNP [address] [place] [address] PCP - General Family Medicine 09/13/19 05/04/23 documented as of this encounter
--- OUTSIDE RECORDS SUMMARY | 2024-03-03 19:14 | XMS_ITS | Encounter Summary ---
Author Organization [facility] Address [facility] [place] [address] Care Team Providers Care Early Childhood Education Worker Name Role Phone Triston Goldstein MD Primary Care Provider [phone] Reason for Visit * Reason Comments Medication Refill Encounter Details Date Type Department Care Team (Late st Contact Info) Description 05/05/2014 Refill Pediatric & Adolescent Medicine at [address] [phone] Rut Valdovinos APRN [facility] [place] [address] Social History Tobacco Use Types Packs/Day Years [...] on filedocumented in this encounter Care Teams Early Childhood Education Worker Relationship Specialty Start Date End Date Triston Goldstein MD [address] [place] [address] PCP - General 03/22/13 06/23/16 documented as of this encounter
--- OUTSIDE RECORDS SUMMARY | 2024-03-03 19:14 | XMS_ITS | Clinical Summary ---
Author Organization [facility] Address [address] [place] [address] Care Team Providers Care Venetian Blind Tape Cutter Name Role Phone Unknown, Provider MD Primary [...] COVID-19 Vaccine (2023- season) 2023 Care Teams Venetian Blind Tape Cutter Relationship Specialty Start Date End Date Unknown, Provider, PCP - General 01/13/19
--- OUTSIDE RECORDS SUMMARY | 2024-03-03 19:14 | XMS_ITS | Encounter Summary ---
Author Organization [facility] Address [address] [place] [address] Care Team Providers Care Inspector Fabric Name Role Phone Unknown, Provider MD Primary Care Provider Unava ilable Encounter Details Date Type Department Care Team (Late st Contact Info) Description 03/21/2023 Lab Requisition [facility] Pathology & Laboratory Medicine - [facility] [address] [place] [address] Outr Resulting Lab, Provider Social History Tobacco [...] 1, PCR Positive(A) Negative 03/22/2023 20:24 EST [facility] Herpes Simplex Virus Molecular Detection 2, PCR Negative Negative 03/22/2023 20:24 EST [facility] Swab LIP STRUCTURE / Unknown 03/20/2023 12:01 EST 03/21/2023 19:24 EST us Provider Outr Resulting Lab MICROBIOLOGY - GENER AL ORDERABLES Final Result [facility] [address] [place] [address] documented in this encounter Visit Diagnoses Not on filedocumented in this encounter Care Teams Inspector Fabric Relationship Specialty Start Date End Date Unknown, Provider, PCP - General 01/13/19 documented as of this encounter
--- OUTSIDE RECORDS SUMMARY | 2024-03-03 19:14 | XMS_ITS | Encounter Summary ---
Author Organization [facility] Address [facility] [place] [address] Care Team Providers Care Fruit Loader Name Role Phone Devin Mimsangle JULIO Primary Care Provider [phone] Reason for Visit * Reason Comments Genetic Evaluation * Consultation (Routine) - Closed Specialty Diagnoses / Procedures Referred By Leslye t Referred To Contact Hematology and Oncology Diagnoses Family history of malignant neoplasm of breast Mother diagnosed breast cancer in 40's Finesse Powell MD [address] [place] [address] [facility] Hem Onc Office [address] [place] [phone] Referral ID Status Reason Start Date Expiration Date Visits Re quested Visits Authorized [id number] Closed 09/13/2019 09/12/2020 1 1 Encounter Details Date Type Department Care Team (Late st Contact Info) Description 12/31/2019 1:00 PM EDT Office Visit [place]ology [place] [address] Shorty Lim V, [facility] Hematology/[place] [address] Family history of breast cancer Social History [...] for 2020 due to current breast pain. Hosiery Knitter exam annually.No prior colonoscopy. No prior dermatology exam, although notes interest in seeing a applications instructor in the near future. Family History of Cancer Problem Relation Age of Onset ??? Breast Cancer Mother 46 Maternal ethnic background is . Paternal ethnic background is . There is no known Ashkenazi Baptist Ancestry. Genetic risk assessment We discussed that [...] screening studies in addition to an annual MANAGER ACUTE exam at this time. Colon cancer screening ?? Baseline colorectal cancer screening starting at age 50 Skin cancer screening ?? Periodic skin exams documented in this encounter Plan of Treatment Not on file documented as of this encounter Visit Diagnoses Diagnosis Family history of breast cancer Family history of malignant neoplasm of breast documented in this encounter Care Teams Fruit Loader Relationship Specialty Start Date End Date Devin Mims DNP [address] [place] [address] PCP - General Family Medicine 09/13/19 05/04/23 documented as of this encounter
--- OUTSIDE RECORDS SUMMARY | 2024-03-03 19:14 | XMS_ITS | Encounter Summary ---
Author Organization [facility] Address [facility] [place] [address] Care Team Providers Care Casting Associate Name Role Phone Devin Mims DNP Primary Care Provider [phone] Encounter Details Date Type Department Care Team (Late st Contact Info) Description 09/21/2019 Ancillary Procedure Radiology Library at [facility] [place] [phone] Devin Mims DNP [facility] [address] [place] [address] Social History Tobacco Use Types Packs/Day Years [...] US Breast (09/21/2019 12:00 AM EDT) Narrative [facility] - 01/06/2020 12:09 PM EDT This exam is auto-finalizing. It's purpose is for storage only. Devin Mims DNP IM FILM LIBRARY OR DERABLES [facility] [place] documented in this encounter Visit Diagnoses Not on filedocumented in this encounter Care Teams Casting Associate Relationship Specialty Start Date End Date Devin Mims DNP [address] [place] [address] PCP - General Family Medicine 09/13/19 05/04/23 documented as of this encounter
--- OUTSIDE RECORDS SUMMARY | 2024-03-03 19:14 | XMS_ITS | Encounter Summary ---
Author Organization [facility] Address [address] [place] [address] Care Team Providers Care Scientific Programmer Name Role Phone Unknown, Provider Primary Care Provider Unava ilable Encounter Details Date Type Department Care Team (Late st Contact Info) Description 01/13/2019 10:00 EDT Hospital Encounter [address] [address] Unknown, Provider, Social History Tobacco Use Types [...] on filedocumented in this encounter Care Teams Scientific Programmer Relationship Specialty Start Date End Date Unknown, ProviderMD PCP - General 01/13/19 documented as of this encounter
--- OUTSIDE RECORDS SUMMARY | 2024-03-03 19:14 | XMS_ITS | Encounter Summary ---
Author Organization [facility] Address [facility] [place] [address] Care Team Providers Care Mold Washer Name Role Phone Triston Goldstein MD Primary Care Provider [phone] Reason for Visit * Reason Onset Date Comments Medication Refill 02/22/2013 Encounter Details Date Type Department Care Team (Late st Contact Info) Description 02/22/2013 Refill Pediatric & Adolescent Medicine at [address] [phone] Rut Valdovinos APRN [facility] [place] [address] Social History Tobacco Use Types Packs/Day Years [...] January so she should be able to pick remover refills. I pended a script to Care Sunil for you to sign. Has a reminder HPE in August. * Telephone Encounter - YadielKelseyPoppy H - 02/22/2013 11:46 AM EST Pt called she had a change to her insurance and needs to use the mail away Rx. Rx: control [facility] / pt ID [id number] PH: [phone] Pt will be out this week, so if we could call 1 month into R/A [place] this would be helpful documented in this encounter Plan of Treatment Not on file documented as of this encounter Visit Diagnoses Not on filedocumented in this encounter Care Teams Mold Washer Relationship Specialty Start Date End Date Triston Goldstein MD [address] [place] [address] PCP - General 01/26/13 03/07/13 documented as of this encounter
--- OUTSIDE RECORDS SUMMARY | 2024-03-03 19:14 | XMS_ITS | Encounter Summary ---
Author Organization [facility] Address [address] [place] [address] Care Team Providers Care Senior Digital Designer Name Role Phone Unknown, Provider Primary Care Provider Unava ilable Encounter Details Date Type Department Care Team (Late st Contact Info) Description 03/21/[address] [facility] Pathology & Laboratory Medicine - [address] [phone] Outr Resulting Lab, Provider Social History Tobacco [...] 12:30 EST) Hold Hold 03/21/2023 18:46 EST [facility] Blood VENOUS BLOOD / Unknown 03/20/2023 12:30 EST 03/21/2023 17:42 EST us Provider Outr Resulting Lab LAB INFO SERVICE AND SUPPORT & PHONE RESULT Final Result Performing Organization Address [facility]/ZIP Co de Phone Number [facility] [address] [place] [address] * HOLD SST (03/20/2023 12:30 EST) Hold Hold 03/21/2023 18:46 EST [facility] Blood VENOUS BLOOD / Unknown 03/20/2023 12:30 EST 03/21/2023 17:42 EST us Provider Outr Resulting Lab LAB INFO SERVICE AND SUPPORT & PHONE RESULT Final Result Performing Organization Address [facility] Co de Phone Number [facility] [address] [place] [address] * THYROPEROXIDASE ANTIBODY (03/20/2023 12:30 EST) Thyroperoxidase Ab 37 <=60 U/mL 2023 19:06 EST [facility] Blood VENOUS BLOOD / Unknown 03/20/2023 12:30 EST 03/21/2023 17:42 EST us Provider Outr Resulting Lab CHEMISTRY & BLOOD GA S ORDERABLES Final Result Performing Organization Address [facility]/ZIP Co de Phone Number [facility] [address] [place] [address] * (ABNORMAL) ANTI THYROGLOBULIN (03/20/2023 12:30 EST) Anti-Thyroglob ulin 491(H) <=60 U/mL 03/21/2023 19:07 EST [facility] Blood VENOUS BLOOD / Unknown 03/20/2023 12:30 EST 03/21/2023 17:42 EST us Provider Outr Resulting Lab CHEMISTRY & BLOOD GA S ORDERABLES Final Result Performing Organization Address City/[facility]/ZIP Co de Phone Number [facility] [address] [place] [address] * ANTI NUCLEAR AB (JOSTIN), IFA (03/20/2023 12:30 EST) JOSTIN Interpretation Negative Negative 2023 16:00 EST [facility] Comment:No titer performed, JOSTIN Screen is negative. Blood VENOUS BLOOD / Unknown 03/20/2023 12:30 EST 03/21/2023 17:42 EST Narrative [facility] - 03/24/2023 16:00 EST Results were obtained with the INOVA NOVA Lite HEp-2 JOSTIN Kit by indirect immunofluorescence. us Provider Outr Resulting Lab IMMUNOLOGY AND SEROL OGY ORDERABLES Final Result Performing Organization Address [facility]/ZIP Co de Phone Number [facility] [address] [place] [address] documented in this encounter Visit Diagnoses Not on filedocumented in this encounter Care Teams Senior Digital Designer Relationship Specialty Start Date End Date Unknown, Provider, PCP - General 01/13/19 documented as of this encounter
--- OUTSIDE RECORDS SUMMARY | 2024-03-03 19:14 | XMS_ITS | Encounter Summary ---
Author Organization [facility] Address [facility] [place] [address] Care Team Providers Care Property Worker Name Role Phone Triston Goldstein MD Primary Care Provider [phone] Reason for Visit * Reason Comments Medication Refill Encounter Details Date Type Department Care Team ([facility] st Contact Info) Description 11/03/2012 Refill Pediatric & Adolescent Medicine at [address] [phone] Rut Valdovinos APRN [facility] DR P[place] [address] Social History Tobacco Use Types Packs/Day Years [...] on filedocumented in this encounter Care Teams Property Worker Relationship Specialty Start Date End Date Triston Goldstein MD [address] [place] [address] PCP - General 02/06/10 01/20/13 documented as of this encounter
--- OUTSIDE RECORDS SUMMARY | 2024-03-03 19:14 | XMS_ITS | Encounter Summary ---
Author Organization [facility] Address [facility] [place] [address] Care Team Providers Care Procurement Services Manager Name Role Phone Triston Goldstein MD Primary Care Provider [phone] Reason for Visit * Reason Onset Date Comments Headache 12/07/2012 Encounter Details Date Type Department Care Team (Late st Contact Info) Description 12/07/2012 Telephone Pediatric & Adolescent Medicine at [address] [phone] Michelle Raphael RN Headache Social [...] Any suggestions for Allyson? She is at [facility] and I did give her the [facility] phone #. She is not able [...] on filedocumented in this encounter Care Teams Procurement Services Manager Relationship Specialty Start Date End Date Triston Goldstein MD [address] [place] [address] PCP - General 02/06/10 01/20/13 documented as of this encounter
--- OUTSIDE RECORDS SUMMARY | 2024-03-03 19:14 | XMS_ITS | Encounter Summary ---
Author Organization [facility] Address [facility] [place] [address] Care Team Providers Care Double End Sewer Name Role Phone Triston Goldstein MD Primary Care Provider [phone] Reason for Visit * Reason Comments Immunizations HPV #2 Encounter Details Date Type Department Care Team ([facility] st Contact Info) Description 10/31/2010 3:30 PM EDT Office Visit Pediatric & Adolescent Medicine at [address] [phone] Need for HPV vaccination (Primary Dx) Social [...] immunization record given to her. Going to [facility] in the fall. documented in this encounter Plan of Treatment Not on file documented as of this encounter Visit Diagnoses Diagnosis Need for HPV vaccination- Primary Need for prophylactic vaccination and inoculation against other viral diseases documented in this encounter Care Teams Double End Sewer Relationship Specialty Start Date End Date Triston Goldstein MD [address] [place] [address] PCP - General 02/06/10 01/20/13 documented as of this encounter
--- OUTSIDE RECORDS SUMMARY | 2024-03-03 19:14 | XMS_ITS | Referral Summary ---
Author Organization [facility] Address [address] [place] [address] Care Team Providers Care Arrt Technologist Name Role Phone Unknown, Provider MD Primary [...] of Treatment Not on file Care Teams Arrt Technologist Relationship Specialty Start Date End Date Unknown, Provider, PCP - General 01/13/19
--- OUTSIDE RECORDS SUMMARY | 2024-03-03 19:14 | XMS_ITS | Encounter Summary ---
Author Organization [facility] Address [facility] [place] [address] Care Team Providers Care Oil Pipeline Operator Name Role Phone Triston Goldstein MD Primary Care Provider [phone] Encounter Details Date Type Department Care Team (Late st Contact Info) Description 09/09/2011 External Results Pediatric & Adolescent Medicine at [address] [phone] Rut Valdovinos APRN [facility] [place] [address] Social History Tobacco Use Types Packs/Day Years [...] on filedocumented in this encounter Care Teams Oil Pipeline Operator Relationship Specialty Start Date End Date Triston Goldstein MD [address] [place], [place] [id number] PCP - General 02/06/10 01/20/13 documented as of this encounter
--- OUTSIDE RECORDS SUMMARY | 2024-03-03 19:14 | XMS_ITS | Encounter Summary ---
Author Organization [facility] Address [address] [place] [address] Care Team Providers Care Special Systems Technician Name Role Phone Unknown, Provider Primary Care Provider Unava ilable Encounter Details Date Type Department Care Team (Late st Contact Info) Description 01/13/2019 Results Only [facility] [phone] Heidy Smith MD [address] [place] [address] Social History Tobacco Use Types Packs/Day [...] ? MICHELE SANTOS ? Accession #: ? [id number] ? : ? 1990 (Age: 28) ??F [...] (ASCP) 01/14/2019 9:12 AM End of Report [facility] 01/13/2019 22:4 4 EDT 01/13/2019 22:44 EDT us Heidy Smith MD PATHOLOGY ORDERABLES Final Resul t [facility] [address] [place] [address] * PAP TEST- RESULT ONLY (01/13/2019 0:00 EDT) Pathology Report: CYTOPATHOLOGY REPORT Reports generated via electronic interface contain original data; however they are lacking the format of the original report. Caution should be taken when reading/interpreti ng unformatted reports. Name: ? MICHELE SANTOS ? Accession #: ? [id number] : ? 1990 (Age: 28) ??F ?Collect [...] Report Date: ??01/15/2019 13:37 End of Report [facility] 01/13/2019 01/14/2019 us Heidy Smith MD PATHOLOGY ORDERABLES Final Resul t [facility] [address] [place] [address] documented in this encounter Visit Diagnoses Not on filedocumented in this encounter Care Teams Special Systems Technician Relationship Specialty Start Date End Date Unknown, Provider, PCP - General 01/13/19 documented as of this encounter
--- OUTSIDE RECORDS SUMMARY | 2024-03-03 19:14 | XMS_ITS | Encounter Summary ---
Author Organization [facility] Address [facility] [place] [address] Care Team Providers Care Steel Plate Caulker Name Role Phone Rut Valdovinos JESSEE Primary Care Provider [phone] Encounter Details Date Type Department Care Team (Late st Contact Info) Description 01/21/2013 2:30 PM EST Office Visit MR at [address] [phone] Headache; Episode of shaking Social [...] the vessels at the level of the [place] of [place]. Midline structures are normal. Ventricles, [...] movements documented in this encounter Care Teams Steel Plate Caulker Relationship Specialty Start Date End Date Rut Valdovinos, GUEST RELATIONS MANAGER PCP - General 01/21/13 01/24/13 documented as of this encounter
--- OUTSIDE RECORDS SUMMARY | 2024-03-03 19:14 | XMS_ITS | Encounter Summary ---
Author Organization [facility] Address [address] [place] [address] Care Team Providers Care Physicist Astrophysics Name Role Phone Unknown, Provider Primary Care Provider Unava ilable Encounter Details Date Type Department Care Team (Late st Contact Info) Description 10/29/2022 Lab Requisition [facility] Pathology & Laboratory Medicine - [address] [address] Outr Resulting Lab, Provider Social History Tobacco [...] 88 pg/mL 10/29/2022 23:06 EDT [facility] Blood VENOUS BLOOD / Unknown 10/29/2022 12:48 EDT 10/29/2022 21:32 EDT us Provider Outr Resulting Lab CHEMISTRY & BLOOD GA S ORDERABLES Final Result [facility] [address] [place] [address] documented in this encounter Visit Diagnoses Not on filedocumented in this encounter Care Teams Physicist Astrophysics Relationship Specialty Start Date End Date Unknown, Provider, PCP - General 01/13/19 documented as of this encounter
--- OUTSIDE RECORDS SUMMARY | 2024-03-03 19:14 | XMS_ITS | Encounter Summary ---
Author Organization [facility] Address [facility] [place] [address] Care Team Providers Care Attendant Self Service Store Name Role Phone Triston Goldstein MD Primary Care Provider [phone] Encounter Details Date Type Department Care Team (Late st Contact Info) Description 08/29/2010 Abstract Pediatric & Adolescent Medicine at [address] [phone] Leeanna Ordonez, [facility] Social History Tobacco Use Types Packs/Day Years [...] on filedocumented in this encounter Care Teams Attendant Self Service Store Relationship Specialty Start Date End Date Triston Goldstein MD [address] [place] [address] PCP - General 02/06/10 01/20/13 documented as of this encounter
--- OUTSIDE RECORDS SUMMARY | 2024-03-03 19:14 | XMS_ITS | Encounter Summary ---
Author Organization [facility] Address [facility] [place] [address] Care Team Providers Care Ux Researcher Name Role Phone Devin Mims JULIO Primary Care Provider [phone] Encounter Details Date Type Department Care Team (Late st Contact Info) Description 11/08/2022 Ancillary Procedure Radiology Library at [facility] [place] [address] Carol Colon APRN [address] [place] [address] [place] [address] Social History Tobacco Use Types Packs/Day Years [...] only. Carol PRITCHARD FILM LIBRARY ORD ERABLES [place], [place] documented in this encounter Visit Diagnoses Not on filedocumented in this encounter Care Teams Ux Researcher Relationship Specialty Start Date End Date Devin Mims DNP [address] [place] [address] PCP - General Family Medicine 09/13/19 05/04/23 documented as of this encounter
--- OUTSIDE RECORDS SUMMARY | 2024-03-03 19:14 | XMS_ITS | Encounter Summary ---
Author Organization [facility] Address [address] [place] [address] Care Team Providers Care Courseware Developer Name Role Phone Unknown, Provider Primary Care Provider Unava ilable Encounter Details Date Type Department Care Team (Late st Contact Info) Description 10/16/2023 Lab Requisition [facility] Pathology & Laboratory Medicine - [address] [phone] Outr Resulting Lab, Provider Social History Tobacco [...] 97 - 169 ng/dL 10/16/2023 20:[address] [facility] Blood VENOUS BLOOD / Unknown 10/15/2023 13:45 EDT 10/16/2023 20:07 EDT us Provider Outr Resulting Lab CHEMISTRY & BLOOD GA S ORDERABLES Final Result [facility] [address] [place] [address] documented in this encounter Visit Diagnoses Not on filedocumented in this encounter Care Teams Courseware Developer Relationship Specialty Start Date End Date Unknown, Provider, PCP - General 01/13/19 documented as of this encounter
--- OUTSIDE RECORDS SUMMARY | 2024-03-03 19:14 | XMS_ITS | Encounter Summary ---
Author Organization [facility] [place] [address] Care Team Providers Care Lacquer Machine Feeder Name Role Phone Carol Colon APRN Primary Care Provider [phone] Reason for Referral * Consultation (Routine) - Denied Specialty Diagnoses / Procedures Referred By Contac t Referred To Contact Rheumatology Diagnoses Other fatigue CHRONIC FATIGUE, JOINT STIFFNESS. PT SEEN BY [facility] ENDO[facility]OLOGY - POSITIVE THYROGLOBULIN ANTIBODY. ALL OTHER THYROID TESTING NORMAL. ENDOCRINOLOGY - POSITIVE THYROGLOBULIN Carol Rivera APRN [address] [place] [address] [facility] [address] [place] [phone] Referral ID Status Reason Start Date Expiration Date V isits Requested Visits Authorized [id number] Denied Consult, Test & Treat PCP Updated and/or Approved 05/26/2023 05/25/2024 6 0 Encounter Details Date Type Department Care Team (Late st Contact Info) Description 05/26/2023 Transcribe Orders eDH Incoming Referrals [phone] Carol Colon APRN [address] [place] [address] Other fatigue Social History Tobacco [...] fatigue documented in this encounter Care Teams Lacquer Machine Feeder Relationship Specialty Start Date End Date Carol Colon, MGMT ANALYST [address] [place] [address] PCP - General Family Medicine 05/05/23 documented as of this encounter
--- OUTSIDE RECORDS SUMMARY | 2024-03-03 19:14 | XMS_ITS | Encounter Summary ---
Author Organization [facility] [place] [address] Care Team Providers Care Machining Associate Name Role Phone Valdovinos Rut Norman HOOKS Primary Care Provider [phone] Reason for Visit * Reason Comments Other Encounter Details Date Type Department Care Team ([facility] Contact Info) Description 01/22/2013 Telephone Neurology at [facility] [address] [place] [phone] Swathi Allan MD [address] [facility] [place] [address] Social History Tobacco Use Types Packs/Day Years [...] call back. * Telephone Encounter - Carisa Hduson RN - 01/22/2013 8:22 AM EST Message [...] on filedocumented in this encounter Care Teams Machining Associate Relationship Specialty Start Date End Date Rut Valdovinos APRN PCP - General 01/21/13 01/24/13 documented as of this encounter
--- NOTE | 2024-03-03 19:15 | DI.RAD_ITS ---
Exam(s) XR CHEST 2V PA LATERAL EXAM: XR CHEST 2V PA LATERAL CLINICAL HISTORY: cough, shortness of breath TECHNIQUE: 2D digital imaging was performed of the chest. Two images were obtained. PA and lateral views were obtained. COMPARISON: No exams were available for comparison FINDINGS: MEDIASTINUM: Normal. HEART: Normal. PULMONARY VASCULATURE: Normal. LUNGS: Clear. PLEURAL SPACE: No pleural effusion or pneumothorax. BONE:Within normal limits for the patient's age. OTHER FINDINGS:Normal. IMPRESSION: No acute pulmonary findings. DATA REPOSITORY: RADIATION DOSE DELIVERED:
--- NOTE | 2024-03-03 19:15 | DI.CT_ITS ---
Exam(s) CT ABDOMEN PELVIS W EXAM: CT ABDOMEN PELVIS W CLINICAL HISTORY: upper abdominal pain with radiation to back, left TECHNIQUE: Imaging Protocol: Axial computed tomography images with coronal and sagittal reformatted images were created and reviewed. CONTRAST MATERIAL: Intravenous: Omnipaque 350 Contrast volume:75 mL Oral: No COMPARISON: No exams were available for comparison FINDINGS: ABDOMEN: Lung Bases: No acute abnormality. Liver: Normal density. There is a tiny hypodensity in the right lobe of the liver. It is too small f or further characterization but likely reflects a small cyst. No suspicious hepatic masses are seen. Portal, Superior Mesenteric, and Splenic Veins: Unremarkable. Gallbladder and Biliary Tract: No radiodense calculus or dilation. Pancreas: Normal density, no abnormal calcifications or inflammatory process. Spleen: Normal. Adrenals: No masses seen. Kidneys: Normal size, contour and axis. No radiodense stones or obstructive uropathy. There is a smal l simple cyst in the right kidney. No follow-up is recommended. No suspicious renal masses. Abdominal Aorta: Abdominal portion non-dilated. Bowel: No obstruction or bowel wall thickening. No evidence of appendicitis. Peritoneal Cavity: No ascites, collection or mesenteric inflammatory response. No free air. Lymph Nodes: Within normal limits. Bones: Within normal limits for the patient's age. Soft Tissues: There is a small fat containing umbilical hernia. PELVIS: Bladder: Symmetric distention, no gross wall thickening. Reproductive Organs: The uterus appears unremarkable. There are small follicular cysts on the ovarie s. The largest measures 2.1 cm and is located on the left ovary. These are likely physiologic. Lymph Nodes: Within normal limits. Bones: Within normal limits for the patient's age. IMPRESSION: No acute abdominal or pelvic process. RADIATION DOSE DELIVERED: 576.59mGy.cm Total DLP DATA REPOSITORY: All CT scans at this facility are submitted to the National Radiology Data Registry (NRDR) Dose Index Registry (DIR) with the [employer] (A[employer]). RADIATION OPTIMIZATION: All CT scans at this facility use at least one of these dose optimization te chniques: automated exposure control; mA and/or kV adjustment per patient size (includes targeted exa ms where dose is matched to clinical indication); or iterative reconstruction.
--- OUTSIDE RECORDS SUMMARY | 2024-03-03 19:15 | XMS_ITS | Encounter Summary ---
Author Organization Pending Sale To [facility] Address [facility] [place] [address] Care Team Providers Care Natural Gas Technician Name Role Phone Triston Goldstein MD Primary Care Provider [phone] Encounter Details Date Type Department Care Team (Late st Contact Info) Description 02/19/2010 3:45 PM EST Office Visit Pediatric & Adolescent Medicine at [address] [phone] Triston Goldstein MD [address] [place] [id number] Social History Tobacco Use Types Packs/Day Years Used Date Smoking Tobacco: Never Assessed Sex and Gender Information Value Date Recorded Sex Assigned at Not on file Gender Identity Not on file Sexual Orientation Not on file documented as of this encounter Plan of Treatment Not on file documented as of this encounter Visit Diagnoses Not on filedocumented in this encounter Care Teams Natural Gas Technician Relationship Specialty Start Date End Date Triston Goldstein MD [address] [place] [id number] PCP - General 02/06/10 01/20/13 documented as of this encounter
--- NOTE | 2024-03-03 19:20 | W.ED.GENAD ---
Discharge Plan Disposition Patient Disposition: Home Condition: Stable Discharge Details Clinical Impression: Acute costochondritis, Abdominal pain Primary Care Provider: Unknown,Unknown ED Provider: Lyly Haywood Home Meds and New Rx's Prescriptions: New prednisone 20 mg tablet 40 mg PO DAILY Qty: 10 0RF cyclobenzaprine 10 mg tablet 10 mg PO Q8H Qty: 15 0RF Continued Nexplanon 68 mg implant 1 implant subdermal ONCE Qty: 1 0RF Rx Instructions: as a single dose hydroxyzine HCl 25 mg tablet 25 mg PO QHS cholecalciferol (vitamin D3) 25 mcg (1,000 unit) capsule 25 mcg PO DAILY lisdexamfetamine [Vyvanse] 20 mg capsule 20 mg PO DAILY valacyclovir 1 gram tablet 1,000 mg PO BID PRN Patient Comments: 04/17/23- pt reports taking for cold sores 1 gram BID x 3 days. estradiol 1 mg tablet See Rx Instructions .ROUTE .COMPLEX Qty: 21 0RF Dose Instruction: take 1 tablet by mouth daily FOR 3 WEEKS, TAKE 1 WEEK OFF THEN REPEAT CYCLE Rx Instructions: take 1 tablet by mouth daily FOR 3 WEEKS, TAKE 1 WEEK OFF THEN REPEAT CYCLE fluoxetine 20 mg tablet 20 mg PO DAILY Patient Comments: TAKE 1 TABLET BY MOUTH ONCE DAILY Discharge Instructions Instructions: Costochondritis, Abdominal Pain, Adult ED Additional Instructions: Take the Flexeril for musculoskeletal pain, this may make you sleepy Take the prednisone for the next 5 days Follow-up with your primary care physician for recheck in 1 to 2 weeks and return earlier should you have new or worsening complaints Discharge Data Discharge Date/Time-TO BE ENTERED AT DEPARTURE: 03/03/24 21:36 HPI General Date/Time Provider Initiated Documentation: 03/03/24 17:44. HPI Narrative: 33-year-old female presents with ongoing bilateral upper abdominal discomfort with radiation to back, worsening over the past couple weeks. Denies any chest pain or shortness of breath. States she has had a cough. Has been evaluated for 5 times for similar exam. Denies chance of . Denies any fever or chills. Denies nausea or vomiting. Denies known exacerbating or alleviating factors. Has been prescribed 2 antibiotics denies any current diarrhea but did have an episode this morning. Denies any blood in stool. Nauseous without vomiting. Related Data Home Medications ?Medication ?Instructions ?Recorded ?Confirmed etonogestrel 68 mg subdermal 1 implant subdermal ONCE #1 ea 04/28/22 03/03/24 implant (Nexplanon) cholecalciferol (vitamin D3) 25 25 mcg PO DAILY 11/11/22 03/03/24 mcg (1,000 unit) capsule hydroxyzine HCl 25 mg tablet 25 mg PO QHS 11/11/22 03/03/24 lisdexamfetamine 20 mg capsule 20 mg PO DAILY 03/06/23 03/03/24 (Vyvanse) valacyclovir 1 gram tablet 1,000 mg PO BID PRN 05/01/23 03/03/24 estradiol 1 mg tablet See Rx Instructions .Route 01/19/24 03/03/24 .COMPLEX #21 tabs cyclobenzaprine 10 mg tablet 10 mg PO Q8H #15 tabs 03/03/24 fluoxetine 20 mg tablet 20 mg PO DAILY 03/03/24 03/03/24 prednisone 20 mg tablet 40 mg (2 x 20 mg) PO DAILY #10 tabs 03/03/24 Previous Rx's ?Medication ?Instructions ?Recorded etonogestrel 68 mg subdermal 1 implant subdermal ONCE #1 ea 04/28/22 implant (Nexplanon) estradiol 1 mg tablet See Rx Instructions .Route 01/19/24 .COMPLEX #21 tabs cyclobenzaprine 10 mg tablet 10 mg PO Q8H #15 tabs 03/03/24 prednisone 20 mg tablet 40 mg (2 x 20 mg) PO DAILY #10 tabs 03/03/24 Allergies Allergy/AdvReac Type Severity Reaction Status Date / Time docosanol (From Abreva) Allergy Other (See Verified 03/03/24 17:39 Comment) General Stated Complaint: RespSymp YON: 3 Exam Narrative Exam Narrative: 33-year-old female, alert and oriented, no acute distress, reproducible tender over the costochondral margin bilaterally, right upper quadrant and left upper quadrant tenderness additionally, no CVA tenderness, no rebound or guarding, alert and oriented Course Vital Signs Vital signs: Vital Signs Temperature 36.7 C 03/03/24 17:24 Pulse 114 H 03/03/24 17:24 Respiratory Rate 16 03/03/24 17:24 Blood Pressure 134/79 03/03/24 17:24 Pulse Oximetry 99 03/03/24 17:24 Temperature 36.7 C 03/03/24 17:24 Temperature Source Temporal Artery Scan 03/03/24 17:24 Pulse 78 03/03/24 19:03 Respiratory Rate 16 03/03/24 19:03 Respiratory Effort Normal 03/03/24 18:44 Respiratory Depth Normal 03/03/24 18:44 Respiratory Pattern Normal 03/03/24 18:44 Blood Pressure 110/76 03/03/24 19:03 Blood Pressure Position Sitting 03/03/24 17:24 Pulse Oximetry 99 03/03/24 19:03 Oxygen Delivery Method Room Air 03/03/24 19:03 Oxygen Flow Rate 0 03/03/24 19:03 Pain Level 6 03/03/24 17:24 Lab/Test Results Lab/Test Results: Laboratory Tests Range/Units 03/03/24 03/03/24 03/03/24 17:29 18:22 18:33 D-Dimer (<500) ng/mlFEU Serum HCG, Qual Negative Urine Color (Yellow) Yellow Urine Clarity (Clear) Clear Urine pH (5-8) 7.5 Ur Specific [place] (1.005-1.025) 1.015 Urine Protein (Neg-Trace) mg/dL Negative Urine Ketones (Negative) mg/dL Negative Urine Blood (Negative) Trace-intact H Urine Nitrite (Negative) Negative Urine Bilirubin (Negative) Negative Urine Urobilinogen (Up to 0.2) mg/dL 0.2 Ur Leukocyte Esterase (Negative) Negative Urine RBC (0-2) HPF 0-2 Urine WBC (0-5) HPF 0-2 Ur Epithelial Cells (Negative) HPF Few Urine Crystals (Negative) HPF Negative Urine Bacteria (Negative) HPF Few Urine Casts (Negative) LPF Negative Urine Mucus (Negative) Negative Urine Other (Negative) Negative Ur Culture Indicated? No Urine Glucose (Negative) mg/dL Negative Monoscreen (Negative) Negative Range/Units 03/03/24 18:43 D-Dimer (<500) ng/mlFEU 225 Serum HCG, Qual Urine Color (Yellow) Urine Clarity (Clear) Urine pH (5-8) Ur Specific [place] (1.005-1.025) Urine Protein (Neg-Trace) mg/dL Urine Ketones (Negative) mg/dL Urine Blood (Negative) Urine Nitrite (Negative) Urine Bilirubin (Negative) Urine Urobilinogen (Up to 0.2) mg/dL Ur Leukocyte Esterase (Negative) Urine RBC (0-2) HPF Urine WBC (0-5) HPF Ur Epithelial Cells (Negative) HPF Urine Crystals (Negative) HPF Urine Bacteria (Negative) HPF Urine Casts (Negative) LPF Urine Mucus (Negative) Urine Other (Negative) Ur Culture Indicated? Urine Glucose (Negative) mg/dL Monoscreen (Negative) POC- Test(urine) Negative Medical Decision Making 33-year-old female alert and oriented, no acute distress, CT was ordered as patient has not had any CT imaging of her abdomen and pelvis limits her primary pain complaint in addition to a chest x-ray. CT abdomen and pelvis does not show significant acute abnormality, some small follicles noted pelvis region. Patient does have fairly localized tenderness to bilateral costochondral margins. I will treat her for costochondritis. She is unable to take ibuprofen secondary to adverse effects, will give her several days of prednisone to see if it calms down her symptoms of the muscle relaxant. Patient is encouraged to have an outpatient pelvic ultrasound. She is in no acute distress, her diagnostic labs are reassuring. I did not order CBC and CMP as though she had this performed twice last week on both Friday and Friday and these are within normal limits and there is no significant change in pain and no fever today. D-dimer was negative which is reassuring, I will not order CTA as I have a low clinical suspicion for a pulmonary embolism clinically. Patient is encouraged to follow-up with primary care physician although she is also encouraged to give her symptoms another week and see if she has improvement in pain. She is given a work note for 2 days. Negative test. Initially patient was tachycardic, this is improved. Urinalysis does not show evidence of acute abnormality. Quality:[facility] Related Social Needs: No Data to Display PFSH All Active Problems (Updated 03/03/24 @ 21:18 by ELINA Marsh) Acute costochondritis (Acute) Pelvic pain (Acute) Fullness of neck (Acute) Contraception (Acute) 12/2018. Mirena IUD inserted at time of D&C. Removed 1 month later. Nexplanon. Irregular menses (Acute) with Nexplanon in place. supplemental E2 not phillip by pt. Mastalgia (Acute) Family history of breast cancer (Acute) Nexplanon insertion (Acute) Abdominal pain (Acute) Other specified contraceptive management (Acute) Retained products of conception (Acute) Abnormal uterine bleeding (Acute) Medical History Abnormal vaginal bleeding Cystic disease of breast Fatigue Enlarged thyroid Lymphadenopathy Anterior neck pain Anxiety Neck swelling Change in voice Hair loss ADHD Family History Mother Breast cancer referred to [facility] Famil[facility]. Not recommended for BRCA testing since mom >45 at time of diagnosis. 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
[2024-03-03] MEDS: Omnipaque 350 MG/ML 100 ML BTL IJ (19:37)
[2024-03-03] MEDS: Normal Saline - Diluent 50 ML VIAL IJ (19:38)
[2024-03-03 20:21] LABS: Lab Add On Test DONE
--- NOTE | 2024-03-03 20:52 | DI.VRAD_ITS ---
PROCEDURE INFORMATION: Exam: CT Abdomen And Pelvis With Contrast Exam date and time: 03/03/2024 7:34 PM Age: 33 years old Clinical indication: Other: Upper abdominal pain with radiation to back, left TECHNIQUE: Imaging protocol: Computed tomography of the abdomen and pelvis with contrast. Contrast material: OMNI 350; Contrast volume: 75 ml; Contrast route: INTRAVENOUS (IV); COMPARISON: US PELVIS TRANSVAGINAL 01/12/2024 11:24 AM FINDINGS: Liver: Liver normal in size. Too small to characterize hypoenhancing area or lesion in right lobe. Gallbladder and biliary ducts: No calcified gallstones or biliary ductal dilatation. Pancreas: Pancreas appears normal. No ductal dilatation. Spleen: No splenomegaly. Adrenal glands: Normal adrenal glands. Kidneys and ureters: Homogeneous enhancement of renal parenchyma. 1 cm simple cyst in interpolar right kidney. No hydronephrosis. Stomach and bowel: No dilated segments of small bowel or colonic dilatation. Appendix: Normal appendix. Intraperitoneal space: Unremarkable. No free air. No significant fluid collection. Vasculature: No aortic aneurysm or dissection. Superior mesenteric artery is normal in appearance. Lymph nodes: Unremarkable. No enlarged lymph nodes. Urinary bladder: Unremarkable as visualized. Reproductive: Anteverted uterus normal in size. Tampon in vagina. 2.2 cm prominent follicle or small cyst in left ovary. Bones/joints: Unremarkable. No acute fracture. Soft tissues: Unremarkable. IMPRESSION: Prominent follicle or small cyst in left ovary. Dictated and Authenticated by: Antoine Dc MD. Ordering:TAVO Desouza MD
--- NOTE | 2024-03-03 21:03 | DI.VRAD_ITS ---
PROCEDURE INFORMATION: Exam: XR Chest Exam date and time: 03/03/2024 7:35 PM Age: 33 years old Clinical indication: Cough and shortness of breath; Additional info: Cough, shortness of breath TECHNIQUE: Imaging protocol: Radiologic exam of the chest. Views: 2 views. COMPARISON: CT ABDOMEN PELVIS W 03/03/2024 7:34 PM FINDINGS: Lungs: Unremarkable. No consolidation. Pleural spaces: Unremarkable. No pleural effusion. No pneumothorax. Heart/Mediastinum: Unremarkable. No cardiomegaly. Bones/joints: Unremarkable. IMPRESSION: No acute findings. Dictated and Authenticated by: Antoine Dc MD. Ordering:TAVO Desouza MD
[2024-03-05 10:07] LABS: Lyme Ab w Rflx to Lyme Confirm Negative (Negative)
[2024-03-07 14:29] LABS: Anaplasma phagocytophilum Negative (Negative); B. miyamotoi PCR Negative (Negative); Babesia divergens/MO-1 Negative (Negative); Babesia duncani Negative (Negative); Babesia microti Negative (Negative); Ehrlichia chaffeensis Negative (Negative); Ehrlichia ewingii/canis Negative (Negative); Ehrlichia muris eauclairensis Negative (Negative)
== END 2024-03-03 21:36 | disposition home or self-care (01) ==
PROVIDERS: Emergency Provider Physician Assistant
DX: R10.9 Unspecified abdominal pain (principal); M94.0 Chondrocostal junction syndrome [Tietze]
CPT/HCPCS: 36415; 81025; 87798; 96361; 96374; 96375; 99285; 71046; 74177; 81003; 81015; 84703; 85379; 86308; 86618; J0131; J0780; J3490

== ENCOUNTER 2024-04-08 02:39 | Outpatient (CLI) | payer BC, SELFPAY ==
--- NOTE | 2024-04-08 | DI.US_ITS ---
Exam(s) US BREAST RT COMPLETE MG MAMMO DIAGNOSTIC BI EXAM: MG MAMMO DIAGNOSTIC BI AND COMPLETE RIGHT BREAST ULTRASOUND CLINICAL HISTORY: N64.4 Mastodynia, Rt breast pain, FA hX breast CA mother ER and CA positive. TECHNIQUE: BILATERAL CC AND MLO mammographic images were obtained with 3D tomosynthesis technique an d utilizing computer aided detection (CAD). Also performed cc and MLO spot compression views of the right breast. Complete right breast ultrasound was performed including all 4 quadrants as well as the axillary sulema on. COMPARISON: Prior mammograms were reviewed, as was prior breast ultrasound examination of February 15. She feels a constant heaviness in the right breast. She denies feeling a breast lump and denies nipp le discharge. Her mother was diagnosed with breast cancer at age 40. Her aunt was recently diagnose d with breast cancer. FINDINGS: DIAGNOSTIC BILATERAL MAMMOGRAM: There has been no significant change in the appearance and distribution of the fibroglandular tissue. Some asymmetric tissue in the right breast on the MLO view is unchanged from the baseline mammogram o f February 2023. Small benign-appearing lymph node in the left axillary tail also appears unchanged. There are no new spiculated masses nor new malignant-appearing microcalcification groups in either br east. There is no new architectural distortion or skin thickening-retraction. COMPLETE RIGHT BREAST ULTRASOUND: There is no evidence of solid or significant cystic lesions in all 4 quadrants of the right breast no r in the retroareolar region. Scanning of the right axilla is negative for adenopathy. IMPRESSION: 1. No radiographic evidence of malignancy nor significant change compared to her baseline mammogram o f February 2023 and subsequent mammogram of May 2023. 2. Negative complete right breast ultrasound. Given this patient's significant family history and symptoms I feel that follow-up MRI of the breasts is recommended The patient was informed of the findings and follow-up recommendations by myself prior to leaving the department today. Strongly suggest that a breast MRI study be performed at [facility] radiology imaging depa rtment BI-RADS Category) -recommend follow-up MRI examination. See above discussion Breast Density - Category B - Scattered areas of fibroglandular density Breast density Category C or D implies that the patient has dense breast tissue. Dense breast tissue can make it harder to find cancer on a mammogram. Dense breast tissue is also associated with an incr eased risk of breast cancer. This information about the result of the mammogram report was provided to the patient to raise their awareness. Use this report when you speak with the patient about their risks for breast cancer, which includes their family history. At that time, you may recommend additional screening tests (Ultrasoun d or MRI) as these tests may add significant information. A negative radiographic report should not delay biopsy if a dominant or clinically suspicious mass is present. Up to ten percent of cancers are not identified on mammography. A negative report may reinforce clinical impression. Adenosis and dense breasts may obscure an underlying neoplasm. False positive reports average 6 to 10%. Patient will receive a letter notifying them of these results.
== END 2024-04-08 02:59 ==
PROVIDERS: PCP Nurse Practitioner Family; Visit Provider Nurse Practitioner Family
DX: Z12.31 Encounter for screening mammogram for malignant neoplasm of breast (principal); N64.4 Mastodynia
CPT/HCPCS: 76642; 77062; 77066; G0279

== ENCOUNTER 2024-08-06 21:55 | Outpatient (REF) | payer BC, SELFPAY ==
[2024-08-06 21:51] LABS: Abs Immature Grans 0.03 10^3/uL (0.0-0.06); Absolute Basophil Count 0.05 10^3/uL (0.0-0.2); Absolute Neutrophil Count 8.64 10^3/uL (1.2-6.7); Basophils % 0.4 %; HCT 41.8 % (36.0-46.0); Immature Grans % 0.3 %; Lymphocytes % 18.2 %; MCH 29.7 pg (27.0-33.0); MCHC 33.5 % (32.0-36.0); MCV 89 fL (80-95); MPV 10.4 fL (8.0-11.0); Monocytes % 5.2 %; Neutrophils % 74.9 %; Platelet Count 299 10^3/uL (130-400); RBC 4.72 10^6/uL (3.93-5.22); RDW 12.5 % (11.7-14.6); RDW-SD 40.7 fL; WBC 11.53 10^3/uL (4.4-10.8)
[2024-08-06 21:52] LABS: Absolute Eosinophil Count 0.12 10^3/uL (0.0-0.7)
[2024-08-06 22:09] LABS: ALT 27 U/L (14-59); AST 17 U/L (15-37); Albumin 3.9 g/dL (3.4-5.0); Alkaline Phosphatase 69 U/L (46-116); Anion Gap 9.5 mmol/L (3-11); BUN 11 mg/dL (7-18); Bilirubin, Total 0.5 mg/dL (0.2-1.0); CO2 27.5 mmol/L (21.0-32.0); Calcium 9.1 mg/dL (8.5-10.1); Chloride 102 mmol/L (98-107); Estimated GFR 76.76 (mL/min/1.73m2); Glucose 84 mg/dL (74-106); Lipase 39 U/L (<78); Potassium 3.7 mmol/L (3.5-5.1); Sodium 139 mmol/L (136-145); TSH (W/Ref FT4) 2.13 uIU/mL (0.36-3.74); Total Protein 7.2 g/dL (6.4-8.2)
== END 2024-08-06 21:56 | disposition home or self-care (01) ==
LOC: LBN 21:55
PROVIDERS: PCP Nurse Practitioner Family; Visit Provider Physician Assistant Medical
DX: R53.83 Other fatigue (principal); R11.0 Nausea
CPT/HCPCS: 80053; 83690; 84443; 85025